=== PATIENT | female | born 1960 | race Caucasian/White ===

== ENCOUNTER → 2019-07-06 10:59 | Outpatient (POV) | payer BC, SELFPAY | PROVIDERS: PCP Dermatology; Visit Provider Dermatology | DX: Z00.00 Encounter for general adult medical examination without abnormal findings (principal) ==

== ENCOUNTER → 2019-10-14 11:10 | Outpatient (CLI) | payer BC, SELFPAY ==
[2019-10-14 13:34] LABS: Coronavirus 19 IgG Antibody Negative (Negative); Coronavirus 19 IgM Antibody Negative (Negative)
== END ==
PROVIDERS: Visit Provider Internal Medicine Gastroenterology
DX: Z01.818 Encounter for other preprocedural examination (principal)
CPT/HCPCS: 36415; 86328

== ENCOUNTER 2019-10-15 08:53 | Day surgery (SDC) | payer BC, SELFPAY ==
[2019-10-11 14:05] VITALS: BMI 32.3
[2019-10-15] VITALS (7 sets, daily range): BP systolic 105–142; BP diastolic 64–91; PULSE 59–83; RESP 16–18; TEMP 36.2–36.6; O2SAT 97–99
--- NOTE | 2019-10-15 09:44 | HMH.ANESCL ---
[facility] Anesthesia Checklist - Patient Identification Patient Identification: Arm Band, Verbal (Name & ) - Structural Data Admitted From: Home Planned Operative Procedure/s: Colonoscopy Consent for Planned Operative Procedure(s) Verified: Yes Verified Documents: Surgical Consent, History and Physical - NPO Status Verified Time NPO: 00:00 - Chart Verification Results Verified: None - Additional verifications Anesthesia Reactions: No - Airway Assessment C-Spine Mobility Assessed: Yes TMJ Mobility Assessed: Yes Dentition: Dentures-good fit - Neurological Assessment Level of Consciousness: Awake, Alert, Appropriate, Follows Commands Hx Seizures: No Numbness or tingling in extremities: No - Anesthesia Plan Anesthesia Risk discussed: Yes Anesthesia Plan: Verified ASA Class: II Anesthesia Type: MAC [facility] History I have reviewed the patient's past medical history: Yes Medical History: Reports:: Anxiety Denies:: Cancer, Diabetes Mellitus Type 1, Diabetes Mellitus Type 2, Internal Pacemaker, MRSA, Seizures *Have you ever received a pneumonia vaccine?: No *Have you received a flu vaccine this season?: Yes Other Medical History: Reports: Hypothyroidism Anesthesia experience/problems:: none Other Surgeries: Yes: Hysterectomy-Partial. No: Pacemaker Amputation: No Fractures: Yes Comment: abdominoplasty - *Social History Educational Level: Attended College Smoking Status: Never smoker Alcohol Intake: current Alcohol Intake Frequency:: holidays/special occasions only Substance Use Type: denies use *Occupational Status:: employed Housing: house Household Members: spouse *Travel in the last 8 weeks: None Family Hx:: No significant family history
--- NOTE | 2019-10-15 10:18 | HMH.PROC ---
[facility] Procedure Note Procedure Note:: Colonoscopy Procedure Report: Colonoscopy with cold snare polypectomy Endoscopist: Musa Kate II, MD Referring physician: Kalie Estevez DO Date of Procedure: October 15, 2019 Equipment: Olympus 180 variable stiffness pediatric colonoscope Sedation: MAC sedation Indication: Mrs. Roque is a 59-year-old female who is here for follow-up screening/surveillance colonoscopy. Her last colonoscopy was 6 to 8 years ago with ne. She reports no abdominal pain, weight loss, change in her bowel habits or rectal bleeding. She reports no family history of colon cancer. She did have an EGD with me in June 2017 with dilation of a Schatzki's ring. At that time, she also had some cricopharyngeal/esophageal spasm. Procedure: Prior to the procedure, a history and physical exam was performed, and patient's medications and allergies were reviewed. The risks, benefits and alternatives of the sedation and procedure were discussed with the patient. All questions were answered and informed consent was obtained. The patient was brought to the procedure room. Patient identification and proposed procedure were verified by the physician and the nurse. The patient was placed in a left lateral decubitus position and the scope was passed under direct vision. Throughout the procedure, the patient's blood pressure, pulse, and oxygen saturations were monitored continuously. The colonoscopy was accomplished without difficulty. The patient tolerated the procedure well. Findings: On digital rectal examination there was normal rectal tone. There were no external hemorrhoids. The colonoscope was introduced through the anal canal to the rectum and advanced to the cecum. The ileocecal valve and appendiceal orifice were identified. The scope was advanced a short distance into the ileum which appeared grossly normal. The scope was then withdrawn into the colon. There was a diminutive polyp in the cecum that was 3 to 4 mm and removed via cold snare polypectomy. The remaining ascending and transverse colon and mucosa were grossly normal. There were scattered diverticuli throughout the colon but more predominantly in the descending and sigmoid colon (LEFT colon). The rectum itself was normal. Upon retroflexion within the rectum there were grade 1-2 internal hemorrhoids. The preparation was excellent throughout with [place] Preparation Score of 9. The cecal time was 12 minutes. Impression: 1. Diminutive cecal polyp 2. Pandiverticulosis 3. Grade 1-2 internal hemorrhoids Plan: I will follow up the polyp pathology and recommend repeat colonoscopy again in 7-10 years based upon the polyp histology. I would encourage fiber supplementation on a long-term daily maintenance basis.
== END 2019-10-15 11:28 | disposition home or self-care (01) ==
LOC: OUTP 08:56
PROVIDERS: PCP Family Medicine; Visit Provider Internal Medicine Gastroenterology
PROC: 0DJD8ZZ Inspection of Lower Intestinal Tract, Via Natural or Artificial Opening Endoscopic (ICD-10-PCS; CPT 45378; principal; 2019-10-15 10:30)
DX: Z12.11 Encounter for screening for malignant neoplasm of colon (principal); Z87.19 Personal history of other diseases of the digestive system; K63.5 Polyp of colon; K57.30 Diverticulosis of large intestine without perforation or abscess without bleeding; K64.0 First degree hemorrhoids; F41.9 Anxiety disorder, unspecified; E03.9 Hypothyroidism, unspecified; Z79.82 Long term (current) use of aspirin; Z79.899 Other long term (current) drug therapy
CPT/HCPCS: 45385

== ENCOUNTER → 2020-02-23 09:09 | Outpatient (CLI) | payer BC, SELFPAY ==
[2020-02-23 19:43] LABS: Covid-19 Nasal PCR Sendout Lex NOT DETECTED
== END ==
PROVIDERS: PCP Family Medicine; Visit Provider Family Medicine
DX: Z03.818 Encounter for observation for suspected exposure to other biological agents ruled out (principal)
CPT/HCPCS: U0004

== ENCOUNTER → 2020-05-01 10:53 | Outpatient (CLI) | payer BC, SELFPAY | PROVIDERS: PCP Family Medicine; Visit Provider Family Medicine | DX: Z11.52 Encounter for screening for COVID-19 (principal) | CPT/HCPCS: U0003 ==

== ENCOUNTER → 2021-01-26 17:01 | Outpatient (CLI) | payer BC, SELFPAY | PROVIDERS: PCP Family Medicine; Visit Provider Nurse Practitioner | DX: Z20.822 Contact with and (suspected) exposure to COVID-19 (principal); U07.1 COVID-19 | CPT/HCPCS: C9803; U0003; U0005 ==

== ENCOUNTER 2021-05-18 09:30 | Emergency (ER) | payer BC, SELFPAY ==
[2021-05-18 09:32] VITALS: BP 114/84; PULSE 84; RESP 16; TEMP 36.7; O2SAT 98; BMI 32.3
[2021-05-18 09:40] VITALS: BP 114/84; PULSE 87; RESP 18; O2SAT 97
--- NOTE | 2021-05-18 09:50 | HMH.EDGENADL ---
ED Disposition Clinical Impression: Diverticulosis of colon, Inflammatory bowel diseases (IBD) Disposition: Home, Self-Care Condition on Discharge: Good Instructions: DI for Diverticulosis, Inflammatory Bowel Disease Additional Instructions: We will schedule you for follow-up with [facility]. If you do not receive a call from them or a letter in the mail, below is their phone number and address and you can reach out to them regarding an appointment. [id number], Medicine Specialties, [facility], [address], [place] [id number] Prescriptions: Promethazine HCl [Phenergan 12.5mg tablet] 12.5 mg PO Q8H PRN #15 tab PRN Reason: Nausea And Vomiting Transmission Status: Pending to [facility] #[id number] Ondansetron [Zofran 4mg ODT] 4 mg PO TIDP PRN #12 tab PRN Reason: Nausea Transmission Status: Pending to [facility] #[id number] Referrals: Kalie Estevez [Primary Care Provider] - Time of Disposition: 12:06 - Critical Care Critical Care Time: No Attestation: On , the high probability of a clinically significant, sudden or life threatening deterioration of the following system(s) required my full and direct attention, intervention and personal management. The time I documented below is in addition to time spent performing reported procedures but includes the following listed in this critical care notation. Medical Decision Making - Medical Records Medical records reviewed: Yes: I reviewed the patient's medical records. - Konstantin Inquiry Pt receiving controlled substance: No Vital Signs: 05/18/21 09:32 05/18/21 09:40 05/18/21 10:00 Temperature 98.0 F Temperature Source Oral Pulse Rate 87 77 Pulse Rate [Right Radial] 84 Respiratory Rate 16 18 18 Blood Pressure 114/84 114/68 Blood Pressure [Right Arm] 114/84 Blood Pressure Mean 95 96 Blood Pressure Mean [Right Arm] 94 Blood Pressure Source [Right Arm] Automatic Cuff Blood Pressure Position [Right Arm] Sitting 02 Sat by Pulse Oximetry 98 97 95 Oxygen Delivery Method Room Air Room Air Room Air 05/18/21 10:30 Temperature Temperature Source Pulse Rate 82 Pulse Rate [Right Radial] Respiratory Rate 18 Blood Pressure 107/66 L Blood Pressure [Right Arm] Blood Pressure Mean 79 Blood Pressure Mean [Right Arm] Blood Pressure Source [Right Arm] Blood Pressure Position [Right Arm] 02 Sat by Pulse Oximetry 95 Oxygen Delivery Method Room Air - Lab Data Lab results reviewed: Yes: I reviewed the patient's lab results. Lab Results 05/18/21 09:48: WBC 13.9 H, RBC 5.08, Hgb 15.5, Hct 48.1 H, MCV 94.7, MCH 30.5, MCHC 32.2, RDW 13.2, Plt Count 349, MPV 8.3, Neut % (Auto) 75.5, Lymph % (Auto) 17.7, Mccreary % (Auto) 3.3, Eos % (Auto) 2.4, Baso % (Auto) 1.1, Neut # (Auto) 10.5 H, Lymph # (Auto) 2.5, Mccreary # (Auto) 0.5, Eos # (Auto) 0.3, Baso # (Auto) 0.2, ESR 9 05/18/21 09:48: Sodium 136, Potassium 3.7, Chloride 102, Carbon Dioxide 25, Anion Gap 12.7, BUN 9, Creatinine 0.70, Estimated Creat Clear 84, Estimated GFR 85, Est GFR ( Amer) 103, Glucose 134 H, Calcium 9.3, C-Reactive Protein 43.1 H Result diagrams: 05/18/21 09:48 05/18/21 09:48 Orders (Tests/Meds): ED MEDICATIONS Discontinued Medications Generic Name Dose Route Start Last Admin Trade Name Freq PRN Reason Stop Dose Admin Sodium Chloride 1,000 mls @ 999 mls/hr 05/18/21 10:00 05/18/21 10:13 Sod Chlor 0.9% 1000ml Bag IV 05/18/21 11:00 999 mls/hr .Q1H1M NABIL Administration Influenza Virus Vaccine Quadrival 60 mcg 05/18/21 09:48 05/18/21 11:06 Flu Vacc [id number](Age 6 Mo+)/Pf 60 Mcg/0.5 Ml Syringe IM 05/18/21 09:49 60 mcg .ONCE ONE Administration Iopamidol 75 ml 05/18/21 11:00 05/18/21 11:00 Iopamidol-370 (76%);100ml Bottle IV 05/18/21 11:01 75 ml ONCE ONE Administration Ondansetron HCl 4 mg 05/18/21 09:48 05/18/21 10:13 Ondansetron 4mg/2ml Vial IV 05/18/21 09:49 4 mg ON
[2021-05-18 10:00] VITALS: BP 114/68; PULSE 77; RESP 18; O2SAT 95
[2021-05-18 10:14] LABS: Basophils # 0.2 K/mm3 (0-0.2); Basophils % 1.1 % (0.1-2.0); Eosinophils # 0.3 K/mm3 (0.0-0.4); Eosinophils % 2.4 % (0.1-12.0); Hematocrit 48.1 % (37.0-47.0); Hemoglobin 15.5 g/dL (12.2-16.2); Lymphocytes # 2.5 K/mm3 (0.7-4.5); Lymphocytes % 17.7 % (10-50); Mean Corpuscular HGB Conc 32.2 g/dL (31.8-35.4); Mean Corpuscular Hemoglobin 30.5 pg (27.0-31.2); Mean Corpuscular Volume 94.7 fl (81-99); Mean Platelet Volume 8.3 fl (7.4-10.4); Monocytes # 0.5 K/mm3 (0.1-1.0); Monocytes % 3.3 % (1.7-9.3); Neutrophils # 10.5 K/mm3 (1.8-7.8); Neutrophils % 75.5 % (37.0-80.0); Platelet Count 349 K/mm3 (142-424); Red Blood Count 5.08 M/mm3 (4.20-5.40); Red Cell Distribution Width 13.2 % (11.5-17.5); White Blood Count 13.9 K/mm3 (4.8-10.8)
[2021-05-18 10:19] LABS: Anion Gap 12.7 mEq/L (5-15); Blood Urea Nitrogen 9 mg/dl (7-17); Calcium 9.3 mg/dl (8.4-10.2); Carbon Dioxide 25 mmol/L (22.0-30.0); Chloride 102 mmol/L (98-107); Creatinine Clearance Estimated 84 mL/min (50-200); Estimated Glomerular Filt Rate 85 ml/min (>60); GFR (African American) 103 ML/MIN (>60); Glucose 134 mg/dl (74-100); Potassium 3.7 mmoL/L (3.5-5.1); Sodium 136 mmol/L (136-145)
[2021-05-18 10:24] LABS: C-Reactive Protein 43.1 mg/L (0-4)
[2021-05-18 10:30] VITALS: BP 107/66; PULSE 82; RESP 18; O2SAT 95
[2021-05-18 10:47] LABS: Erythrocyte Sedimentation Rate 9 mm/hr (0-30)
--- NOTE | 2021-05-18 10:48 | CT_ITS ---
FINAL REPORT CLINICAL HISTORY: eval for crohn s/uc/diverticulitis/abscess FINDINGS: Technique: The patient was injected with intravenous contrast. Axial images through the abdomen and pelvis were performed. This study was performed with techniques to keep radiation doses as low as reasonably achievable (ALARA). Individualized dose reduction techniques using automated exposure control or adjustment of mA and/or kV according to the patient's size were employed. Abdomen: The lung bases are clear. There is mild fatty infiltration of the liver. The gallbladder is distended without evidence of stones or biliary ductal dilatation. The spleen is unremarkable. The adrenals are normal. The pancreas is unremarkable. The kidneys enhance appropriately. The aorta is normal in caliber. There is no free fluid or adenopathy. Pelvis: The appendix is not unremarkable. There is descending and sigmoid diverticulosis without evidence of diverticulitis. There is no evidence of bowel obstruction. The patient is status post hysterectomy. No localized inflammatory process is identified. The urinary bladder is unremarkable. There is no free fluid or adenopathy. IMPRESSION: Diverticulosis without evidence of diverticulitis. No acute localized inflammatory process. Reviewed, Interpreted and Dictated by Vitor Luna III, MD Transcribed by Freda Campuzano Authenticated by Vitor Luna III, MD on 05/18/2021 11:48:[address] [facility]
[2021-05-18 12:50] VITALS: BP 131/89; PULSE 71; RESP 18; TEMP 36.7; O2SAT 95
== END 2021-05-18 12:50 | disposition home or self-care (01) ==
PROVIDERS: Emergency Provider Emergency Medicine; PCP Family Medicine
DX: K52.9 Noninfective gastroenteritis and colitis, unspecified (principal); K57.30 Diverticulosis of large intestine without perforation or abscess without bleeding; E03.9 Hypothyroidism, unspecified
CPT/HCPCS: 74177; 80048; 85025; 85651; 86140; 96365; 96375; 99283; J2405; Q9967

== ENCOUNTER 2021-08-05 09:03 | Emergency (ER) | payer BC, SELFPAY ==
[2021-08-05 09:25] VITALS: BP 148/89; PULSE 84; RESP 16; TEMP 36.6; O2SAT 99; BMI 32.3
--- NOTE | 2021-08-05 09:54 | HMH.EDUTC ---
[facility] [place] Impression: UTI (urinary tract infection) Qualifiers: Urinary tract infection type: site unspecified Hematuria presence: with hematuria Qualified Code(s): N39.0 - Urinary tract infection, site not specified Disposition: Home, Self-Care Condition on Discharge: Good Instructions: Urinary Tract Infection, Urine Culture, DI for Urinary Tract Infection (UTI), Phenazopyridine Additional Instructions: Drink plenty of fluids. Take tylenol or ibuprofen for pain or fever. Take the medications as directed. Follow up with your regular doctor. GO TO THE ER FOR ANY WORSENING SYMPTOMS The pyridium will make your urine turn orange, this is an expected side effect. It will stain your clothes if it comes into contact with them. We will culture the urine. That will tell what bacteria is causing your infection and which antibiotics will treat it best. Sometimes the first antibiotic we prescribe turns out to not work against different bacteria. So, make sure you follow up within 3 days if you are not getting better. Prescriptions: Ondansetron [Zofran 4mg ODT] 4 mg PO Q8HP PRN #12 tab PRN Reason: Nausea Transmission Status: Received by [facility] #[id number] Nitrofurantoin Monohyd/M-Cryst [Macrobid 100 mg Capsule] 100 mg PO BID 5 Days #10 cap Transmission Status: Received by [facility] #[id number] Phenazopyridine HCl [Pyridium 200mg Tablet] 200 pow PO TID #6 tab Transmission Status: Received by [facility] #[id number] Referrals: Kalie Estevez [Primary Care Provider] - Time of Disposition: 10:10 Medical Decision Making - Medical Records Medical records reviewed: No: I reviewed the patient's medical records. - Konstantin Inquiry Pt receiving controlled substance: No Vital Signs: 08/05/21 09:25 08/05/21 10:14 Temperature 97.9 F 97.9 F Temperature Source Oral Pulse Rate 84 Pulse Rate [Left] 84 Respiratory Rate 16 16 Blood Pressure 148/89 H Blood Pressure [Right Arm] 148/89 H Blood Pressure Mean [Right Arm] 108 02 Sat by Pulse Oximetry 99 - Lab Data Lab results reviewed: Yes: I reviewed the patient's lab results. Lab Results 08/05/21 10:12: Urine Color Straw, Urine Appearance Turbid, Urine pH 5.0, Ur Specific [place] 1.025, Urine Protein Negative, Urine Glucose (UA) Negative, Urine Ketones Negative, Urine Blood 2+, Urine Nitrate Negative, Urine Bilirubin Negative, Urine Urobilinogen 0.2, Ur Leukocyte Esterase Negative [facility] [place] - General Stated complaint: possible uti Time Seen by Provider: 08/05/21 09:54 Mode of Arrival: Ambulatory Source of Information: Patient Limitations: No Limitations Description of Symptoms (Recalled from Triage Doc. by RN): pt c/o pain with urination and lower back pain. HEENT Symptoms (Recalled from RN notes): No Resp Symptoms (Recalled from RN notes): No Skin Symptoms (Recalled from RN notes): No MS Symptoms (Recalled from RN notes): No Functional Status (Recalled from RN notes): wnl - History of Present Illness Provider Complaint: She c/o low back pain and burning with urination for the past 2 days. - Related Data Home Medications Medication Instructions Recorded Confirmed Aspirin [Aspir 81] 81 mg PO DAILY 10/11/19 05/18/21 Levothyroxine Sodium 37.5 mcg PO DAILY 10/11/19 05/18/21 [Levothyroxine 75mcg (0.075mg) Tab] Venlafaxine HCl [Venlafaxine HCl 1 tab PO DAILY 10/11/19 05/18/21 ER] Baclofen [Lioresal 10mg tablet] 10 mg PO DIRECTED 05/18/21 05/18/21 Ciprofloxacin HCl 500 mg PO BID 05/18/21 05/18/21 Dicyclomine HCl [Bentyl 10mg 10 mg PO QID 05/18/21 05/18/21 capsule] hydrOXYzine HCL [Hydroxyzine HCl] 10 mg PO Q6H 05/18/21 05/18/21 metroNIDAZOLE [metroNIDAZOLE 500mg 500 mg PO TID 05/18/21 05/18/21 Tablet] Previous Rx's Medication Instructions Recorded Ondansetron [Zofran 4mg ODT] 4 mg PO TIDP PRN #12 tab 05/18/21 Promethazine HCl [Phenergan 12.5mg 12.5 mg PO Q8H P
[2021-08-05 10:13] LABS: Apearance,Urine Turbid (Clear); Color,Urine Straw (Yellow)
[2021-08-05 10:14] VITALS: BP 148/89; PULSE 84; RESP 16; TEMP 36.6
[2021-08-05 10:14] LABS: Bilirubin,Urine Negative (Negative); Blood, Urine 2+ (Negative); Glucose,Urine (UA) Negative (Negative); Ketones,Urine Negative (Negative); Protein,Urine Negative (Negative); Specific Gravity, Urine 1.025 (1.005-1.030); UTC Leukocyte Esterase,Urine Negative (Negative); UTC Nitrate,Urine Negative (Negative); Urobilinogen,Urine 0.2 EU/dl (0.2)
== END 2021-08-05 10:15 | disposition home or self-care (01) ==
PROVIDERS: Emergency Provider Nurse Practitioner Family; PCP Family Medicine
DX: N39.0 Urinary tract infection, site not specified (principal); A49.8 Other bacterial infections of unspecified site; M54.50 Low back pain, unspecified; F41.9 Anxiety disorder, unspecified; Z79.82 Long term (current) use of aspirin; Z79.899 Other long term (current) drug therapy
CPT/HCPCS: 81003; 87086; 87088; 87186; 99213; G0463

== ENCOUNTER 2021-12-08 18:07 | Emergency (ER) | payer BC, SELFPAY ==
--- NOTE | 2021-12-08 18:21 | XR_ITS ---
PROCEDURE INFORMATION: Exam: XR Chest Exam date and time: 12/08/2021 6:22 PM Age: 61 years old Clinical indication: Cough TECHNIQUE: Imaging protocol: Radiologic exam of the chest. Views: 2 views. COMPARISON: None FINDINGS: Lungs: Unremarkable. No consolidation. Pleural spaces: Unremarkable. No pleural effusion. No pneumothorax. Heart/Mediastinum: Unremarkable. No cardiomegaly. Bones/joints: Unremarkable. IMPRESSION: No acute findings.
[2021-12-08 18:35] VITALS: BP 147/82; PULSE 86; RESP 16; TEMP 36.5; O2SAT 96; BMI 31.6
--- NOTE | 2021-12-08 18:48 | HMH.EDUTC ---
[facility] [place] Clinical Impression: Acute bronchitis Sinusitis Qualifiers: Sinusitis location: unspecified location Chronicity: acute Recurrence: non-recurrent Qualified Code(s): J01.90 - Acute sinusitis, unspecified Disposition: Home, Self-Care Condition on Discharge: Good Instructions: DI for Sinusitis, DI for Acute Bronchitis Additional Instructions: Drink plenty of fluids. Take tylenol or ibuprofen for pain or fever. Take the medications as directed. Follow up with your regular doctor. GO TO THE ER FOR ANY WORSENING SYMPTOMS Quarantine until you know the results of your covid-19 test. Notify your school or workplace of your results and follow their instructions regarding return to work/school. Don't start the oral steroids until tomorrow, since you had the shot here today. Prescriptions: Benzonatate [Benzonatate 100mg cap] 100 mg PO TIDP PRN #30 cap PRN Reason: Cough Transmission Status: Received by [facility] #[id number] methylPREDNISolone [Medrol] 4 mg PO DIRECTED 6 Days #21 packet Transmission Status: Received by [facility] #[id number] Azithromycin [Z-Ferdinand 250mg Tab*] 250 mg PO UD DOSE PK #6 tab Transmission Status: Received by [facility] #[id number] Referrals: Kalie Estevez [Primary Care Provider] - Time of Disposition: 19:08 Medical Decision Making - Medical Records Medical records reviewed: No: I reviewed the patient's medical records. - Konstantin Inquiry Pt receiving controlled substance: No Vital Signs: 12/08/21 18:35 12/08/21 19:12 Temperature 97.7 F 97.7 F Temperature Source Oral Pulse Rate 86 Pulse Rate [Left] 86 Respiratory Rate 16 16 Blood Pressure 147/82 H Blood Pressure [Right Arm] 147/82 H Blood Pressure Mean [Right Arm] 103 02 Sat by Pulse Oximetry 96 Orders (Tests/Meds): ED MEDICATIONS Discontinued Medications Generic Name Dose Route Start Last Admin Trade Name Freq PRN Reason Stop Dose Admin Ceftriaxone Sodium 1 gm 12/08/21 18:57 12/08/21 19:12 Ceftriaxone 1gm Vial IM 12/08/21 18:58 1 gm ONCE ONE Administration Lidocaine HCl 0 ml 12/08/21 18:57 12/08/21 19:12 Lidocaine 1% 5ml Pf Vial IM 12/08/21 18:58 2 ml ONCE ONE Administration Methylprednisolone Sodium Succinate 125 mg 12/08/21 18:57 12/08/21 19:12 Methylprednisolone Sod Succ 125mg Vial IM 12/08/21 18:58 125 mg ONCE ONE Administration [facility] [place] - General Stated complaint: Cough,Head&Chest congestion, Time Seen by Provider: 12/08/21 18:48 Mode of Arrival: Ambulatory Source of Information: Patient Limitations: No Limitations Description of Symptoms (Recalled from Triage Doc. by RN): patient comes in with complaints of sinus congestion, chest congestion.patient was seen by her pcp earlier this month and her medicine ran out and she noticed that her symptoms come back. HEENT Symptoms (Recalled from RN notes): Yes Resp Symptoms (Recalled from RN notes): Yes Skin Symptoms (Recalled from RN notes): No MS Symptoms (Recalled from RN notes): No Functional Status (Recalled from RN notes): n/a - History of Present Illness Provider Complaint: She states that for the past 4 days she has had sinus congestion, sinus drainage, chest congestion, and a productive cough. She denies any known exposure to covid-19 and she states that she has a sinus infection now. - Related Data Home Medications Medication Instructions Recorded Confirmed Aspirin [Aspir 81] 81 mg PO DAILY 10/11/19 05/18/21 Levothyroxine Sodium 37.5 mcg PO DAILY 10/11/19 05/18/21 [Levothyroxine 75mcg (0.075mg) Tab] Venlafaxine HCl [Venlafaxine HCl 1 tab PO DAILY 10/11/19 05/18/21 ER] Baclofen [Lioresal 10mg tablet] 10 mg PO DIRECTED 05/18/21 05/18/21 Ciprofloxacin HCl 500 mg PO BID 05/18/21 05/18/21 Dicyclomine HCl [Bentyl 10mg 10 mg PO QID 05/18/21 05/18/21 capsule] hydrOXYzine HCL [Hydroxyzine HCl] 10 mg PO Q6H 05/18/21 05/18/21 metroNIDAZOL
[2021-12-08 19:12] VITALS: BP 147/82; PULSE 86; RESP 16; TEMP 36.5
== END 2021-12-08 19:21 | disposition home or self-care (01) ==
PROVIDERS: Emergency Provider Nurse Practitioner Family; PCP Family Medicine
DX: J20.9 Acute bronchitis, unspecified (principal); J01.90 Acute sinusitis, unspecified
CPT/HCPCS: 71046; 96372; 99212; G0463; J0696

== ENCOUNTER 2022-10-31 08:29 | Emergency (ER) | payer BC, SELFPAY ==
[2022-10-31 08:30] VITALS: BP 139/85; PULSE 90; RESP 16; TEMP 36.5; O2SAT 96; BMI 29.7
--- NOTE | 2022-10-31 08:50 | CT_ITS ---
FINAL REPORT CLINICAL HISTORY: hit by cattle gate FINDINGS: Axial images of the head were obtained without contrast. Coronal reformatted images were also obtained.This study was performed with techniques to keep radiation doses as low as reasonably achievable (ALARA). Individualized dose reduction techniques using automated exposure control or adjustment of mA and/or kV according to the patient's size were employed. There is no evidence of intracranial hemorrhage or mass. The ventricular size is within normal limits. There is no evidence of shift of the midline structures. No abnormal extra axial fluid collection is identified. No skull abnormality is seen on the bone window images. IMPRESSION: No acute intracranial abnormality. Reviewed, Interpreted and Dictated by Vitor Luna III, MD Transcribed by Katiuska Marcus Authenticated and [facility]
--- NOTE | 2022-10-31 08:50 | XR_ITS ---
FINAL REPORT CLINICAL HISTORY: hit by cattle gate FINDINGS: Two views of the chest were obtained. The heart size and pulmonary vascularity are within normal limits. The mediastinum is normal. No acute pulmonary abnormality is identified. There is no pneumothorax. The bony thorax is intact. IMPRESSION: No active cardiopulmonary disease. Reviewed, Interpreted and Dictated by Vitor Luna III, MD Transcribed by Jenny Palacios Authenticated and [facility]
--- NOTE | 2022-10-31 08:50 | CT_ITS ---
FINAL REPORT CLINICAL HISTORY: hit by cattle gate FINDINGS: Axial CT images of the cervical spine were obtained without contrast. Sagittal and coronal reformatted images were also obtained. This study was performed with techniques to keep radiation doses as low as reasonably achievable (ALARA). Individualized dose reduction techniques using automated exposure control or adjustment of mA and/or kV according to the patient's size were employed. There is no evidence of fracture or dislocation. The bony alignment is normal. There are moderate degenerative changes at C5-6 and C6-7 with disc osteophyte complexes. There is bilateral neuroforaminal narrowing and mild central canal stenosis at C5-6 and C6-7. No paraspinous soft tissue abnormality is seen. Limited images of the upper thorax are unremarkable. IMPRESSION: No fracture or acute bony abnormality identified. Degenerative changes at C5-6 and C6-7 with bilateral neuroforaminal narrowing and mild central canal stenosis. Reviewed, Interpreted and Dictated by Vitor Luna III, MD Transcribed by Katiuska Marcus Authenticated and [facility]
--- NOTE | 2022-10-31 09:03 | PC.NURSE ---
Pt. to XR
--- NOTE | 2022-10-31 09:15 | PC.NURSE ---
Dr. Melendez at [facility]
--- NOTE | 2022-10-31 09:19 | HMH.EDGENADL ---
Discharge Plan Disposition Patient Disposition: Home, Self-Care Prescriptions Prescriptions: New ondansetron 4 mg tablet,disintegrating 4 mg PO Q6H PRN (Reason: nausea and vomiting) 5 Days Qty: 20 0RF No Action aspirin 81 MG tablet,delayed release (DR/EC) 81 mg PO DAILY levothyroxine 75 MCG tablet 37.5 mcg PO DAILY venlafaxine 37.5 MG capsule,extended release 24hr 1 tab PO DAILY Patient Comments: take 1 capsule by mouth once daily metronidazole 500 MG tablet 500 mg PO TID ciprofloxacin HCl 500 MG tablet 500 mg PO BID baclofen 10 MG tablet 10 mg PO DIRECTED hydroxyzine HCl 10 MG tablet 10 mg PO Q6H Patient Comments: TAKE 0.5 TO 1 TABLET BY MOUTH 1 TO 3 TIMES DAILY NEEDED FOR PANIC dicyclomine 10 MG capsule 10 mg PO QID promethazine 12.5 MG tablet 12.5 mg PO Q8H PRN (Reason: Nausea And Vomiting) Qty: 15 0RF ondansetron 4 MG tablet,disintegrating 4 mg PO TIDP PRN (Reason: Nausea) Qty: 12 0RF phenazopyridine 200 MG tablet 200 pow PO TID Qty: 6 0RF nitrofurantoin monohyd/m-cryst 100 MG capsule 100 mg PO BID 5 Days Qty: 10 0RF ondansetron 4 MG tablet,disintegrating 4 mg PO Q8HP PRN (Reason: Nausea) Qty: 12 0RF azithromycin 250 MG tablet 250 mg PO UD DOSE PK Qty: 6 0RF Rx Instructions: Take two (2) tablets today, then one (1) tablet days #2 thru #5 benzonatate 100 MG capsule 100 mg PO TIDP PRN (Reason: Cough) Qty: 30 0RF methylprednisolone 4 MG tablets,dose pack 4 mg PO DIRECTED 6 Days Qty: 21 0RF Referrals Follow up/Referrals: Kalie Estevez [Primary Care Provider] - See instructions Clinical Impressions Clinical Impression: Closed head injury, Concussion Discharge ED Provider: Shabana Melendez General Adult HPI General Chief complaint: Head Injury Stated complaint: AO 7/6 Bruising on head Time Seen by Provider: 10/31/22 09:11 Mode of Arrival: Ambulatory Source of Information: Patient Limitations: No Limitations Description of Symptoms (Recalled from ER Triage Doc. by RN): pt to the ED with pain and redness to her left forehead after a cow kicked the gate she was behind causing the gate to swing back and hit her in the head. pt denies any neck pain or other complaints at this time. pt is negative for blood thinners. History of Present Illness HPI narrative: Patient is a 62-year-old female presenting today with a head injury. She states that she was helping load cattle with her when a cow kicked the gate that subsequently struck her in the head and knocked her backwards. She denies any injuries to her neck chest abdomen or pelvis or pain elsewhere. She did not lose consciousness she is not on any anticoagulation but does take a daily aspirin. She has some pain at the left frontal aspect of her forehead. She states other than feeling a bit disoriented she has no pain currently. Related Data Home Medications Medication Instructions Recorded Confirmed aspirin 81 mg tablet,delayed 81 mg PO DAILY heart health 10/11/19 05/18/21 release levothyroxine 75 mcg tablet 37.5 mcg PO DAILY hormone 10/11/19 05/18/21 venlafaxine 37.5 mg 1 tab PO DAILY Anxiety 10/11/19 05/18/21 capsule,extended release 24 hr baclofen 10 mg tablet 10 mg PO DIRECTED . 05/18/21 05/18/21 ciprofloxacin HCl 500 mg tablet 500 mg PO BID abd 05/18/21 05/18/21 dicyclomine 10 mg capsule 10 mg PO QID abd pain 05/18/21 05/18/21 hydroxyzine HCl 10 mg tablet 10 mg PO Q6H . 05/18/21 05/18/21 metronidazole 500 mg tablet 500 mg PO TID abd 05/18/21 05/18/21 Previous Rx's Medication Instructions Recorded ondansetron 4 mg disintegrating 4 mg PO TIDP PRN Nausea #12 tabs 05/18/21 tablet promethazine 12.5 mg tablet 12.5 mg PO Q8H PRN Nausea And 05/18/21 Vomiting #15 tabs nitrofurantoin 100 mg PO BID 5 days #10 caps 08/05/21 monohydrate/macrocrystals 100 mg capsule ondansetron 4 mg disintegrating 4 mg PO
[2022-10-31 09:29] VITALS: BP 123/70; PULSE 71; RESP 16; O2SAT 98
[2022-10-31 10:01] VITALS: BP 128/70; PULSE 75; O2SAT 96
--- NOTE | 2022-10-31 10:21 | PC.NURSE ---
Contracted rad to check on status of CT results-rad staff reports sending down preliminaries on CTs
[2022-10-31 10:35] VITALS: BP 111/82; PULSE 75; RESP 16; TEMP 36.5; O2SAT 98
== END 2022-10-31 10:35 | disposition home or self-care (01) ==
PROVIDERS: Emergency Provider Student in an Organized Health Care Education/Training Program; PCP Family Medicine
DX: S06.0X0A Concussion without loss of consciousness, initial encounter (principal); W22.8XXA Striking against or struck by other objects, initial encounter; R41.0 Disorientation, unspecified; Z79.82 Long term (current) use of aspirin
CPT/HCPCS: 70450; 71046; 72125; 99285

== ENCOUNTER 2022-11-19 11:48 | Emergency (ER) | payer BC, SELFPAY ==
--- NOTE | 2022-11-19 11:53 | PC.NURSE ---
pt hooked up to monitor; warm blanket given for comfort and call light within reach. at BS
[2022-11-19 11:55] VITALS: BP 148/100; PULSE 90; RESP 20; TEMP 36.6; O2SAT 96; BMI 29.3
[2022-11-19 12:01] VITALS: BP 138/93; PULSE 84; O2SAT 95
--- NOTE | 2022-11-19 12:06 | CT_ITS ---
FINAL REPORT TECHNIQUE: Axial images through the head was performed by computed tomography. Sagittal and coronal reformatted images were obtained and reviewed. This study was performed with techniques to keep radiation doses as low as reasonably achievable (ALARA). Individualized dose reduction techniques using automated exposure control or adjustment of mA and/or kV according to the patient's size were employed. CLINICAL HISTORY: headache [id number], CONCUSSION 3 WEEKS AGO COMPARISON: 10/31/2022 FINDINGS: No abnormal density is seen. Ventricles are normal. There is no hemorrhage. No mass effect is seen. Bone windows show no evidence of fracture. IMPRESSION: No acute findings. Reviewed, Interpreted and Dictated by Shira Souza MD Transcribed by Freda Campuzano Authenticated and [facility]
--- NOTE | 2022-11-19 12:08 | CT_ITS ---
FINAL REPORT TECHNIQUE: After the administration of IV contrast, axial images through the abdomen and pelvis was performed by computed tomography. Sagittal and coronal reformatted images were obtained and reviewed. This study was performed with techniques to keep radiation doses as low as reasonably achievable (ALARA). Individualized dose reduction techniques using automated exposure control or adjustment of mA and/or kV according to the patient's size were employed. CLINICAL HISTORY: pain COMPARISON: 05/18/2021 FINDINGS: Abdomen: Lung bases are clear. The gallbladder is unremarkable. There is fatty infiltration of the liver. The gallbladder is unremarkable. The spleen, pancreas and adrenal glands are unremarkable. Kidneys show no mass or obstruction. No bowel obstruction or fluid collection is seen. There is long segment wall thickening of the left colon extending from the splenic flexure into the sigmoid colon. Pelvis: The appendix is normal. There is left colon wall thickening which extends to involve the sigmoid colon. There is moderate sigmoid diverticulosis. The patient is status post hysterectomy. There is no free fluid or adenopathy. IMPRESSION: Nonspecific left-sided colitis. No bowel obstruction, free air, or abscess. Reviewed, Interpreted and Dictated by Shira Souza MD Transcribed by Freda Campuzano Authenticated and . [facility]
[2022-11-19 12:23] LABS: Basophils % 0.6 % (0.1-2.0); Eosinophils # 0.1 K/mm3 (0.0-0.4); Eosinophils % 2.4 % (0.1-12.0); Hemoglobin 14.7 g/dL (12.2-16.2); Lymphocytes # 1.9 K/mm3 (0.7-4.5); Lymphocytes % 33.3 % (10-50); Mean Corpuscular HGB Conc 31.9 g/dL (31.8-35.4); Mean Corpuscular Hemoglobin 29.1 pg (27.0-31.2); Mean Corpuscular Volume 91.2 fl (81-99); Mean Platelet Volume 8.1 fl (7.4-10.4); Monocytes # 0.6 K/mm3 (0.1-1.0); Monocytes % 10.3 % (1.7-9.3); Neutrophils # 3.1 K/mm3 (1.8-7.8); Neutrophils % 53.3 % (37.0-80.0); Platelet Count 257 K/mm3 (142-424); Red Blood Count 5.04 M/mm3 (4.20-5.40); Red Cell Distribution Width 13.3 % (11.5-17.5); White Blood Count 5.8 K/mm3 (4.8-10.8)
--- NOTE | 2022-11-19 12:27 | HMH.EDGENADL ---
Discharge Plan Disposition Patient Disposition: Home, Self-Care Condition: Good Prescriptions Prescriptions: New naproxen 500 mg tablet 500 mg PO BID PRN (Reason: pain) Qty: 20 0RF No Action aspirin 81 MG tablet,delayed release (DR/EC) 81 mg PO DAILY levothyroxine 75 MCG tablet 37.5 mcg PO DAILY venlafaxine 37.5 MG capsule,extended release 24hr 1 tab PO DAILY Patient Comments: take 1 capsule by mouth once daily metronidazole 500 MG tablet 500 mg PO TID ciprofloxacin HCl 500 MG tablet 500 mg PO BID baclofen 10 MG tablet 10 mg PO DIRECTED hydroxyzine HCl 10 MG tablet 10 mg PO Q6H Patient Comments: TAKE 0.5 TO 1 TABLET BY MOUTH 1 TO 3 TIMES DAILY NEEDED FOR PANIC dicyclomine 10 MG capsule 10 mg PO QID promethazine 12.5 MG tablet 12.5 mg PO Q8H PRN (Reason: Nausea And Vomiting) Qty: 15 0RF ondansetron 4 MG tablet,disintegrating 4 mg PO TIDP PRN (Reason: Nausea) Qty: 12 0RF phenazopyridine 200 MG tablet 200 pow PO TID Qty: 6 0RF nitrofurantoin monohyd/m-cryst 100 MG capsule 100 mg PO BID 5 Days Qty: 10 0RF ondansetron 4 MG tablet,disintegrating 4 mg PO Q8HP PRN (Reason: Nausea) Qty: 12 0RF azithromycin 250 MG tablet 250 mg PO UD DOSE PK Qty: 6 0RF Rx Instructions: Take two (2) tablets today, then one (1) tablet days #2 thru #5 benzonatate 100 MG capsule 100 mg PO TIDP PRN (Reason: Cough) Qty: 30 0RF methylprednisolone 4 MG tablets,dose pack 4 mg PO DIRECTED 6 Days Qty: 21 0RF ondansetron 4 mg tablet,disintegrating 4 mg PO Q6H PRN (Reason: nausea and vomiting) 5 Days Qty: 20 0RF Referrals Follow up/Referrals: Colette Westbrook DO [Emergency Provider] - See instructions Kalie Estevez [Primary Care Provider] - See instructions May Novak MD [Staff Physician] - See instructions Activity Restrictions/Add. Instructions Additional Instructions/Restrictions: You were evaluated in the emergency department today. Please scrap picker your prescription at the pharmacy and take as needed for abdominal discomfort. Orally hydrate and eat a bland diet. Follow-up with your primary care provider over the next 2 days. I am providing you with information for Dr. Novak with Neurology. Please contact her office and arrange follow-up for your continued concussive symptoms. Return to the emergency department for any new or worsening symptoms. Clinical Impressions Clinical Impression: Colitis, Chronic post-concussion headache Instructions Patient Instructions: DI for Concussion, DI for Postconcussion Syndrome, DI for Headache, DI for Colitis Discharge ED Provider: Colette Westbrook General Adult HPI General Chief complaint: Headache Stated complaint: BOATENG, diarrhea Time Seen by Provider: 11/19/22 11:54 Mode of Arrival: Ambulatory Source of Information: Patient Limitations: No Limitations Description of Symptoms (Recalled from ER Triage Doc. by RN): pt to ed c/o diarrhea for 3 days and a headache for 3 weeks. pt states she was hit by a cattle gate 3 weeks ago and has had a persistant headache since. pt reports being worked up and dx with a concussion. pt reports a sensitivity to light and sound. History of Present Illness HPI narrative: This patient is a 62-year-old female who has a history of diverticulosis and diabetes presenting to the emergency department for evaluation with concern for headache and diarrhea. Patient reports that she was struck in the head by a cattle gate 3 weeks ago and has had a headache since. She was evaluated here at that time on medical record review and diagnosed with a concussion. She reports that she feels like she has brain fog and is having trouble answering questions. She has tried Aleve at home without good improvement. She also reports sensitivity to light and sound. She denies any vision changes, numbness, tingling, weakness, or other concerns. She also notes that she
[2022-11-19 12:30] VITALS: BP 128/88; PULSE 82; O2SAT 96
[2022-11-19 12:51] LABS: Microscopic, Urine URINE MICROSCOPIC (MICROSCOPIC)
[2022-11-19 12:58] LABS: Appearance,Urine CLEAR (Clear); Blood, Urine 1+ (Negative); Color,Urine YELLOW (Yellow); Glucose,Urine (UA) Negative (Negative); Ketones,Urine Negative (Negative); Leukocyte Esterase,Urine TRACE (Negative); Nitrate,Urine Negative (Negative); Protein,Urine Negative (Negative); Specific Gravity, Urine >= 1.030 (1.005-1.030); Urobilinogen,Urine 0.2 EU/dl (0.2)
[2022-11-19 13:00] VITALS: BP 125/78; PULSE 73; O2SAT 95
--- NOTE | 2022-11-19 13:01 | PC.NURSE ---
contacted lab to check on status of cmp results, lab staff reports will be approx 10 minutes until results
[2022-11-19 13:06] LABS: Chloride 104 mmol/L (98-107); Potassium 3.8 mmoL/L (3.5-5.1); Sodium 139 mmol/L (136-145)
[2022-11-19 13:08] LABS: Bilirubin,Urine Negative (Negative)
[2022-11-19 13:08] LABS: Alanine Aminotransferase 39 U/L (12-78); Aspartate Amino Transferase 40 U/L (14-36); Blood Urea Nitrogen 10 mg/dl (7-17); Creatinine Clearance Estimated 74 mL/min (50-200); Estimated Glomerular Filt Rate 84 ml/min (>60); GFR (African American) 102 ML/MIN (>60)
[2022-11-19 13:09] LABS: Albumin Level 4.2 g/dl (3.5-5.0); Albumin/Globulin Ratio 1.3 (1.1-1.8); Alkaline Phosphatase 86 U/L (38-126); Anion Gap 12.8 mEq/L (5-15); Bilirubin,Total 0.3 mg/dl (0.2-1.3); Calcium 9.2 mg/dl (8.4-10.2); Carbon Dioxide 26 mmol/L (22.0-30.0); Globulin 3.2 g/dL (1.3-3.2); Glucose 120 mg/dl (74-100); Lipase 93 U/L (23-300); Total Protein,Serum 7.4 g/dl (6.3-8.2)
[2022-11-19 13:27] LABS: Amorphous Sediment,Urine Trace /lpf; Bacteria,Urine Trace /lpf; RBC,Urine Occasional #/hpf (0-3); Squamous Epithelial Cell,Urine Occasional #/hpf (0-5)
[2022-11-19 15:03] VITALS: BP 119/74; PULSE 70; RESP 20; TEMP 36.6; O2SAT 96
== END 2022-11-19 15:05 | disposition home or self-care (01) ==
PROVIDERS: Emergency Provider Emergency Medicine; PCP Family Medicine
DX: G44.309 Post-traumatic headache, unspecified, not intractable (principal); K52.9 Noninfective gastroenteritis and colitis, unspecified; W55.29 Other contact with cow
CPT/HCPCS: 70450; 74177; 80053; 81001; 83690; 83735; 85025; 96361; 96374; 96375; 99285; Q9967

== ENCOUNTER 2023-04-12 09:42 | Emergency (ER) | payer BC, SELFPAY ==
[2023-04-12 10:30] VITALS: BP 128/84; PULSE 78; RESP 20; TEMP 36.6; O2SAT 96; BMI 29.8
--- NOTE | 2023-04-12 10:35 | EXP.UTC ---
Discharge Plan Disposition Patient Disposition: Home, Self-Care Condition: Good Prescriptions Prescriptions: New amoxicillin [amoxicillin] 500 mg tablet 500 mg PO TID 10 Days Qty: 30 0RF benzonatate [benzonatate] 100 mg capsule 100 mg PO TIDP PRN (Reason: Cough) Qty: 30 0RF methylprednisolone 4 mg Tablets,Dose Pack 4 mg PO DIRECTED Qty: 21 0RF No Action aspirin 81 MG tablet,delayed release (DR/EC) 81 mg PO DAILY levothyroxine 75 MCG tablet 37.5 mcg PO DAILY venlafaxine 37.5 MG capsule,extended release 24hr 1 tab PO DAILY Patient Comments: take 1 capsule by mouth once daily metronidazole 500 MG tablet 500 mg PO TID ciprofloxacin HCl 500 MG tablet 500 mg PO BID baclofen 10 MG tablet 10 mg PO DIRECTED hydroxyzine HCl 10 MG tablet 10 mg PO Q6H Patient Comments: TAKE 0.5 TO 1 TABLET BY MOUTH 1 TO 3 TIMES DAILY NEEDED FOR PANIC dicyclomine 10 MG capsule 10 mg PO QID promethazine 12.5 MG tablet 12.5 mg PO Q8H PRN (Reason: Nausea And Vomiting) Qty: 15 0RF ondansetron 4 MG tablet,disintegrating 4 mg PO TIDP PRN (Reason: Nausea) Qty: 12 0RF phenazopyridine 200 MG tablet 200 pow PO TID Qty: 6 0RF nitrofurantoin monohyd/m-cryst 100 MG capsule 100 mg PO BID 5 Days Qty: 10 0RF ondansetron 4 MG tablet,disintegrating 4 mg PO Q8HP PRN (Reason: Nausea) Qty: 12 0RF azithromycin 250 MG tablet 250 mg PO UD DOSE PK Qty: 6 0RF Rx Instructions: Take two (2) tablets today, then one (1) tablet days #2 thru #5 benzonatate 100 MG capsule 100 mg PO TIDP PRN (Reason: Cough) Qty: 30 0RF methylprednisolone 4 MG tablets,dose pack 4 mg PO DIRECTED 6 Days Qty: 21 0RF ondansetron 4 mg tablet,disintegrating 4 mg PO Q6H PRN (Reason: nausea and vomiting) 5 Days Qty: 20 0RF naproxen 500 mg tablet 500 mg PO BID PRN (Reason: pain) Qty: 20 0RF Referrals Follow up/Referrals: Petras,Kalie L [Primary Care Provider] - See instructions Activity Restrictions/Add. Instructions Additional Instructions/Restrictions: Drink plenty of fluids. Take tylenol or ibuprofen for pain or fever. Take the medications as directed. Follow up with your regular doctor. GO TO THE ER FOR ANY WORSENING SYMPTOMS Clinical Impressions Clinical Impression: Pharyngitis Instructions Patient Instructions: Sore Throat, DI for Pharyngitis/Tonsillopharyngitis -- Adult Discharge ED Provider: Oliver Carter [facility] General Stated complaint: sore throat Time Seen by Provider: 04/12/23 10:35 History of Present Illness Provider Complaint: She states that she has had a sore throat for the past 2 weeks. She states that for the past 2 days she has had a low grade fever and chills. She denies any significant chest congestion and cough. Related Data Home Medications Medication Instructions Recorded Confirmed aspirin 81 mg tablet,delayed 81 mg PO DAILY heart health 10/11/19 05/18/21 release levothyroxine 75 mcg tablet 37.5 mcg PO DAILY hormone 10/11/19 05/18/21 venlafaxine 37.5 mg 1 tab PO DAILY Anxiety 10/11/19 05/18/21 capsule,extended release 24 hr baclofen 10 mg tablet 10 mg PO DIRECTED . 05/18/21 05/18/21 ciprofloxacin HCl 500 mg tablet 500 mg PO BID abd 05/18/21 05/18/21 dicyclomine 10 mg capsule 10 mg PO QID abd pain 05/18/21 05/18/21 hydroxyzine HCl 10 mg tablet 10 mg PO Q6H . 05/18/21 05/18/21 metronidazole 500 mg tablet 500 mg PO TID abd 05/18/21 05/18/21 Previous Rx's Medication Instructions Recorded ondansetron 4 mg disintegrating 4 mg PO TIDP PRN Nausea #12 tabs 05/18/21 tablet promethazine 12.5 mg tablet 12.5 mg PO Q8H PRN Nausea And 05/18/21 Vomiting #15 tabs nitrofurantoin 100 mg PO BID 5 days #10 caps 08/05/21 monohydrate/macrocrystals 100 mg capsule ondansetron 4 mg disintegrating 4 mg PO Q8HP PRN Nausea #12 tabs 08/05/21 tablet phenazopyridine 200 mg tablet 200 pow
[2023-04-12 10:54] LABS: UTC Influenza A Antigen Negative (Negative); UTC Strep Screen (Rapid) Negative (Negative)
[2023-04-12 10:55] LABS: UTC Influenza B Antigen Negative (Negative)
[2023-04-12 11:19] VITALS: BP 128/84; PULSE 78; RESP 20; TEMP 36.6; O2SAT 96
== END 2023-04-12 11:21 | disposition home or self-care (01) ==
PROVIDERS: Emergency Provider Nurse Practitioner Family; PCP Family Medicine
DX: J02.9 Acute pharyngitis, unspecified (principal); R50.9 Fever, unspecified; R05.9 Cough, unspecified
CPT/HCPCS: 87635; 87804; 87880; 99212; 99214; G0463

== ENCOUNTER 2023-06-06 08:56 | Emergency (ER) | payer BC, SELFPAY ==
--- NOTE | 2023-06-06 09:04 | EXP.UTC ---
Discharge Plan Disposition Patient Disposition: Home, Self-Care Condition: Good Prescriptions Prescriptions: New oseltamivir [Tamiflu] 75 mg capsule 75 mg PO BID Qty: 10 0RF prednisone 20 mg tablet 20 mg PO BID Qty: 10 0RF promethazine-DM 6.25-15 mg/5 mL syrup 5 ml PO Q6H PRN (Reason: Cough) Qty: 180 0RF No Action aspirin 81 MG tablet,delayed release (DR/EC) 81 mg PO DAILY levothyroxine 75 MCG tablet 37.5 mcg PO DAILY venlafaxine 37.5 MG capsule,extended release 24hr 1 tab PO DAILY Patient Comments: take 1 capsule by mouth once daily metronidazole 500 MG tablet 500 mg PO TID ciprofloxacin HCl 500 MG tablet 500 mg PO BID baclofen 10 MG tablet 10 mg PO DIRECTED hydroxyzine HCl 10 MG tablet 10 mg PO Q6H Patient Comments: TAKE 0.5 TO 1 TABLET BY MOUTH 1 TO 3 TIMES DAILY NEEDED FOR PANIC dicyclomine 10 MG capsule 10 mg PO QID promethazine 12.5 MG tablet 12.5 mg PO Q8H PRN (Reason: Nausea And Vomiting) Qty: 15 0RF ondansetron 4 MG tablet,disintegrating 4 mg PO TIDP PRN (Reason: Nausea) Qty: 12 0RF phenazopyridine 200 MG tablet 200 pow PO TID Qty: 6 0RF nitrofurantoin monohyd/m-cryst 100 MG capsule 100 mg PO BID 5 Days Qty: 10 0RF ondansetron 4 MG tablet,disintegrating 4 mg PO Q8HP PRN (Reason: Nausea) Qty: 12 0RF azithromycin 250 MG tablet 250 mg PO UD DOSE PK Qty: 6 0RF Rx Instructions: Take two (2) tablets today, then one (1) tablet days #2 thru #5 benzonatate 100 MG capsule 100 mg PO TIDP PRN (Reason: Cough) Qty: 30 0RF methylprednisolone 4 MG tablets,dose pack 4 mg PO DIRECTED 6 Days Qty: 21 0RF amoxicillin [amoxicillin] 500 mg tablet 500 mg PO TID 10 Days Qty: 30 0RF benzonatate [benzonatate] 100 mg capsule 100 mg PO TIDP PRN (Reason: Cough) Qty: 30 0RF methylprednisolone 4 mg Tablets,Dose Pack 4 mg PO DIRECTED Qty: 21 0RF ondansetron 4 mg tablet,disintegrating 4 mg PO Q6H PRN (Reason: nausea and vomiting) 5 Days Qty: 20 0RF naproxen 500 mg tablet 500 mg PO BID PRN (Reason: pain) Qty: 20 0RF Referrals Follow up/Referrals: Kalie Estevez [Primary Care Provider] - See instructions Activity Restrictions/Add. Instructions Additional Instructions/Restrictions: Rest, fluids, Tylenol/Motrin Follow up if not improving Oscillinium also sometimes helps symptoms Clinical Impressions Clinical Impression: Influenza Instructions Patient Instructions: DI for Influenza -- Adult Discharge ED Provider: Divina Ghosh [facility] [place] HPI General Stated complaint: sore throat, body aches, cough Time Seen by Provider: 06/06/23 09:45 History of Present Illness Provider Complaint: Fever, headache, body aches, chills, back pain X 2 days. was ill earlier this week and presumably had the flu. Granddaughter was sick last week but negative. No vomiting or diarrhea but states that she has not felt this bad in a very long time. Onset (ago): day(s) (2) Relieving factors: none Exacerbating factors: none Associated symptoms: fever/chills, headaches and malaise Treatments prior to arrival: none Related Data Home Medications Medication Instructions Recorded Confirmed aspirin 81 mg tablet,delayed 81 mg PO DAILY heart health 10/11/19 05/18/21 release levothyroxine 75 mcg tablet 37.5 mcg PO DAILY hormone 10/11/19 05/18/21 venlafaxine 37.5 mg 1 tab PO DAILY Anxiety 10/11/19 05/18/21 capsule,extended release 24 hr baclofen 10 mg tablet 10 mg PO DIRECTED . 05/18/21 05/18/21 ciprofloxacin HCl 500 mg tablet 500 mg PO BID abd 05/18/21 05/18/21 dicyclomine 10 mg capsule 10 mg PO QID abd pain 05/18/21 05/18/21 hydroxyzine HCl 10 mg tablet 10 mg PO Q6H . 05/18/21 05/18/21 metronidazole 500 mg tablet 500 mg PO TID abd 05/18/21 05/18/21 Previous Rx's Medication Instructions Recorded ondansetron 4 mg disintegrating 4 mg PO TIDP PRN Nausea #12 tabs 01/21/22 tablet promethazine 12.5 mg tablet 12.5 mg PO Q8H PRN Nausea And 05/18/21 Vomiting #15 tabs nitrofurantoin 100 mg PO BID 5 days #10 caps 08/05/21 monohydrate/macrocrystals 100 mg capsule ondansetron 4 mg disintegrating 4 mg PO Q8HP PRN Nausea #12 tabs 08/05/21 tablet phenazopyridine 200 mg tablet 200 pow PO TID #6 tabs 08/05/21 azithromycin 250 mg tablet 250 mg PO UD DOSE PK #6 tabs 12/08/21 benzonatate 100 mg capsule 100 mg PO TIDP PRN Cough #30 caps 12/08/21 methylprednisolone 4 mg tablets in 4 mg PO DIRECTED 6 days #21 12/08/21 a dose pack packets ondansetron 4 mg disintegrating 4 mg PO Q6H PRN nausea and 10/31/22 tablet vomiting 5 days #20 tabs naproxen 500 mg tablet 500 mg PO BID PRN pain #20 tabs 11/19/22 amoxicillin 500 mg tablet 500 mg PO TID 10 days #30 tabs 04/12/23 benzonatate 100 mg capsule 100 mg PO TIDP PRN Cough #30 caps 04/12/23 methylprednisolone 4 mg tablets in 4 mg PO DIRECTED #21 tabs 04/12/23 a dose pack oseltamivir 75 mg capsule (Tamiflu) 75 mg PO BID #10 caps 06/06/23 prednisone 20 mg tablet 20 mg PO BID #10 tabs 06/06/23 promethazine-DM 6.25 mg-15 mg/5 mL 5 ml PO Q6H PRN Cough #180 mL 06/06/23 oral syrup Allergies Allergy/AdvReac Type Severity Reaction Status Date / Time No Known Allergies Allergy Verified 12/08/21 18:44 [facility] Disclaimer: The information contained in this section may have been updated after the patient was seen, as this information can be updated by other users. 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 current occupational exposures/hazards: No caffeine: Yes ROS Obtained: Yes All systems reviewed & no additional complaints except as documented Constitutional Constitutional: Reports body ache, Reports chills, Reports fever(s), Reports headache(s) and Reports malaise Eyes Eyes: Denies eye discharge ENT Ears, Nose, Mouth, and Throat: Reports as per HPI and Reports headache(s) Cardiovascular Cardiovascular: Denies chest pain Respiratory Respiratory: Denies chest congestion and Reports cough Gastrointestinal Gastrointestingal: Reports nausea; Denies abdominal pain, constipation, cramping, diarrhea or vomiting Musculoskeletal Musculoskeletal: Denies arthralgias Integumentary/Breasts Skin/Breast: Denies rash Neurologic Neurologic: Reports headache(s) and Denies paresthesias Physical Exam General General appearance: alert, in no apparent distress and other (appears ill) Head Head exam: atraumatic, normocephalic and normal inspection Eye Eye exam: Present normal appearance, PERRL and EOMI ENT ENT exam: Present normal exam, normal oropharynx, mucous membranes moist, TM's normal bilaterally and normal external ear exam Neck Neck exam: Present normal inspection, full ROM and trachea midline; Absent meningismus or lymphadenopathy Chest Chest inspection: Present normal inspection and symmetric chest wall rise; Absent tenderness Respiratory Respiratory exam: Present normal lung sounds bilaterally; Absent respiratory distress Cardiovascular Cardiovascular exam: Present regular rate and normal rhythm; Absent JVD Abdominal Exam Abdominal exam: Present soft and normal bowel sounds; Absent distention, tenderness or guarding Extremities Exam Extremities exam: Present normal inspection, full ROM and normal capillary refill; Absent calf tenderness Back Exam Back exam: Present normal inspection; Absent tenderness Neurological Exam Neurological exam: Present alert and oriented X3 Psychiatric Psychiatric exam: Present normal affect and normal mood Skin Skin exam: Present warm, dry, intact and normal color Lymphatic Lymphatic Findings: no adenopathy Medical Decision Making Konstantin Inquiry Pt receiving controlled substance: No Lab Data Lab results reviewed: Yes I reviewed the patient's lab results.
[2023-06-06 09:20] VITALS: BP 132/70; PULSE 106; RESP 18; TEMP 36.9; O2SAT 95; BMI 28.2
[2023-06-06 09:45] LABS: UTC Influenza A Antigen Negative (Negative); UTC Influenza B Antigen Negative (Negative)
[2023-06-06 10:00] VITALS: BP 132/70; PULSE 106; RESP 18; TEMP 36.9; O2SAT 96
== END 2023-06-06 10:00 | disposition home or self-care (01) ==
PROVIDERS: Emergency Provider Physician Assistant; PCP Family Medicine
DX: J10.1 Influenza due to other identified influenza virus with other respiratory manifestations (principal); R51.9 Headache, unspecified; R50.9 Fever, unspecified; R53.81 Other malaise; M79.18 Myalgia, other site
CPT/HCPCS: 87804; 99212; 99214; G0463

== ENCOUNTER 2023-06-06 18:23 | Emergency (ER) | payer BC, SELFPAY ==
[2023-06-06 18:24] VITALS: BP 121/83; PULSE 94; RESP 18; TEMP 36.9; O2SAT 92; BMI 34.2
[2023-06-06 20:10] VITALS: BMI 35.2
[2023-06-06] MEDS: ONDANSETRON 4MG ODT 4 MG SL (20:16)
[2023-06-06] MEDS: ACETAMINOPHEN 500MG TAB 1000 MG PO (20:16)
--- NOTE | 2023-06-06 20:44 | ED_ITS ---
Discharge Plan Disposition Patient Disposition: Home, Self-Care Prescriptions Prescriptions: New ondansetron 4 mg tablet,disintegrating 4 mg PO Q6H PRN (Reason: nausea and vomiting) Qty: 10 0RF No Action aspirin 81 MG tablet,delayed release (DR/EC) 81 mg PO DAILY levothyroxine 75 MCG tablet 37.5 mcg PO DAILY venlafaxine 37.5 MG capsule,extended release 24hr 1 tab PO DAILY Patient Comments: take 1 capsule by mouth once daily metronidazole 500 MG tablet 500 mg PO TID ciprofloxacin HCl 500 MG tablet 500 mg PO BID baclofen 10 MG tablet 10 mg PO DIRECTED hydroxyzine HCl 10 MG tablet 10 mg PO Q6H Patient Comments: TAKE 0.5 TO 1 TABLET BY MOUTH 1 TO 3 TIMES DAILY NEEDED FOR PANIC dicyclomine 10 MG capsule 10 mg PO QID promethazine 12.5 MG tablet 12.5 mg PO Q8H PRN (Reason: Nausea And Vomiting) Qty: 15 0RF ondansetron 4 MG tablet,disintegrating 4 mg PO TIDP PRN (Reason: Nausea) Qty: 12 0RF phenazopyridine 200 MG tablet 200 pow PO TID Qty: 6 0RF nitrofurantoin monohyd/m-cryst 100 MG capsule 100 mg PO BID 5 Days Qty: 10 0RF ondansetron 4 MG tablet,disintegrating 4 mg PO Q8HP PRN (Reason: Nausea) Qty: 12 0RF azithromycin 250 MG tablet 250 mg PO UD DOSE PK Qty: 6 0RF Rx Instructions: Take two (2) tablets today, then one (1) tablet days #2 thru #5 benzonatate 100 MG capsule 100 mg PO TIDP PRN (Reason: Cough) Qty: 30 0RF methylprednisolone 4 MG tablets,dose pack 4 mg PO DIRECTED 6 Days Qty: 21 0RF amoxicillin [amoxicillin] 500 mg tablet 500 mg PO TID 10 Days Qty: 30 0RF benzonatate [benzonatate] 100 mg capsule 100 mg PO TIDP PRN (Reason: Cough) Qty: 30 0RF methylprednisolone 4 mg Tablets,Dose Pack 4 mg PO DIRECTED Qty: 21 0RF ondansetron 4 mg tablet,disintegrating 4 mg PO Q6H PRN (Reason: nausea and vomiting) 5 Days Qty: 20 0RF naproxen 500 mg tablet 500 mg PO BID PRN (Reason: pain) Qty: 20 0RF oseltamivir [Tamiflu] 75 mg capsule 75 mg PO BID Qty: 10 0RF prednisone 20 mg tablet 20 mg PO BID Qty: 10 0RF promethazine-DM 6.25-15 mg/5 mL syrup 5 ml PO Q6H PRN (Reason: Cough) Qty: 180 0RF Referrals Follow up/Referrals: Kalie Estevez [Primary Care Provider] - See instructions Activity Restrictions/Add. Instructions Additional Instructions/Restrictions: Call your family doctor to establish care for this visit to the emergency department and schedule follow-up within 48 hours to ensure improvement. If you have any worsening of your condition or any other concerning signs or symptoms, return to the emergency department or your primary care doctor for further evaluation. Zofran every 6 hours as needed for nausea and vomiting to stimulate appetite. Take Tylenol 1000 mg every 6 hours (4 times daily) and ibuprofen 400 mg every 6 hours (4 times daily) as needed with food and water to prevent GI upset and kidney damage. Clinical Impressions Clinical Impression: Acute viral syndrome Discharge ED Provider: Sonu Holloway General Adult HPI General Chief complaint: Recheck/Abnormal Lab/Rx Stated complaint: flu +, dizzy, body aches Time Seen by Provider: 06/06/23 20:33 Mode of Arrival: Ambulatory Source of Information: Patient Limitations: No Limitations Description of Symptoms (Recalled from ER Triage Doc. by RN): patient ambulatory to Ed with c/o headache/nausea today. Patient was seen in [facility] earlier today and tested positive Flu abd was prescribed tamiflu. Patient took 2 doses today and reports its not working. History of Present Illness HPI narrative: 62-year-old female presenting with flulike symptoms. Patient states that she has had multiple flu contacts, was prescribed flu medication after being diagnosed with flu earlier today. States that she came to the emergency department because she stood up from seated position and got blurry vision, felt lightheaded. She has never had this before, so came for further evaluation. Not currently having symptoms on my evaluation. No chest pain, shortness of breath, any other neurologic deficits. Related Data Home Medications Medication Instructions Recorded Confirmed aspirin 81 mg tablet,delayed 81 mg PO DAILY heart health 10/11/19 05/18/21 release levothyroxine 75 mcg tablet 37.5 mcg PO DAILY hormone 10/11/19 05/18/21 venlafaxine 37.5 mg 1 tab PO DAILY Anxiety 10/11/19 05/18/21 capsule,extended release 24 hr baclofen 10 mg tablet 10 mg PO DIRECTED . 05/18/21 05/18/21 ciprofloxacin HCl 500 mg tablet 500 mg PO BID abd 05/18/21 05/18/21 dicyclomine 10 mg capsule 10 mg PO QID abd pain 05/18/21 05/18/21 hydroxyzine HCl 10 mg tablet 10 mg PO Q6H . 05/18/21 05/18/21 metronidazole 500 mg tablet 500 mg PO TID abd 05/18/21 05/18/21 Previous Rx's Medication Instructions Recorded ondansetron 4 mg disintegrating 4 mg PO TIDP PRN Nausea #12 tabs 05/18/21 tablet promethazine 12.5 mg tablet 12.5 mg PO Q8H PRN Nausea And 05/18/21 Vomiting #15 tabs nitrofurantoin 100 mg PO BID 5 days #10 caps 08/05/21 monohydrate/macrocrystals 100 mg capsule ondansetron 4 mg disintegrating 4 mg PO Q8HP PRN Nausea #12 tabs 08/05/21 tablet phenazopyridine 200 mg tablet 200 pow PO TID #6 tabs 08/05/21 azithromycin 250 mg tablet 250 mg PO UD DOSE PK #6 tabs 12/08/21 benzonatate 100 mg capsule 100 mg PO TIDP PRN Cough #30 caps 12/08/21 methylprednisolone 4 mg tablets in 4 mg PO DIRECTED 6 days #21 12/08/21 a dose pack packets ondansetron 4 mg disintegrating 4 mg PO Q6H PRN nausea and 10/31/22 tablet vomiting 5 days #20 tabs naproxen 500 mg tablet 500 mg PO BID PRN pain #20 tabs 11/19/22 amoxicillin 500 mg tablet 500 mg PO TID 10 days #30 tabs 04/12/23 benzonatate 100 mg capsule 100 mg PO TIDP PRN Cough #30 caps 04/12/23 methylprednisolone 4 mg tablets in 4 mg PO DIRECTED #21 tabs 04/12/23 a dose pack ondansetron 4 mg disintegrating 4 mg PO Q6H PRN nausea and 06/06/23 tablet vomiting #10 tabs oseltamivir 75 mg capsule (Tamiflu) 75 mg PO BID #10 caps 06/06/23 prednisone 20 mg tablet 20 mg PO BID #10 tabs 06/06/23 promethazine-DM 6.25 mg-15 mg/5 mL 5 ml PO Q6H PRN Cough #180 mL 06/06/23 oral syrup Allergies Allergy/AdvReac Type Severity Reaction Status Date / Time No Known Allergies Allergy Verified 12/08/21 18:44 [facility] Disclaimer: The information contained in this section may have been updated after the patient was seen, as this information can be updated by other users. 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 current occupational exposures/hazards: No caffeine: Yes ROS Obtained: Yes All systems reviewed & no additional complaints except as documented Physical Exam General General appearance: alert and in no apparent distress Head Head exam: atraumatic and normocephalic Eye Eye exam: Present normal appearance, PERRL and EOMI ENT ENT exam: Present mucous membranes moist Neck Neck exam: Present normal inspection, full ROM and trachea midline Respiratory Respiratory exam: Absent respiratory distress, wheezes, stridor, accessory muscle use or prolonged expiratory phase Cardiovascular Cardiovascular exam: Present normal rhythm Abdominal Exam Abdominal exam: Present soft; Absent distention, tenderness, guarding, rebound or rigidity Extremities Exam Extremities exam: Absent edema Neurological Exam Neurological exam: Present alert, oriented X3, CN II-XII intact and normal gait; Absent motor sensory deficit Skin Skin exam: Present warm and dry; Absent diaphoresis or erythema Medical Decision Making Medical Records Medical records reviewed: Yes I reviewed the patient's medical records. Konstantin Inquiry Pt receiving controlled substance: No Konstantin was queried for this patient: No Vital Signs: 06/06/23 18:24 06/06/23 20:52 Temperature 98.4 F 98.2 F Temperature Source Oral Oral Pulse Rate 73 Pulse Rate [Right] 94 H Respiratory Rate 18 19 Blood Pressure 112/70 Blood Pressure [Right Arm] 121/83 Blood Pressure Mean [Right Arm] 95 Blood Pressure Source Automatic Cuff Blood Pressure Position Sitting Blood Pressure Position [Right Arm] Sitting 02 Sat by Pulse Oximetry 92 L Oxygen Delivery Method Room Air Room Air Orders (Tests/Meds): ED MEDICATIONS Discontinued Medications Generic Name Dose Route Start Last Admin Trade Name Nannette PRN Reason Stop Dose Admin Acetaminophen 1,000 mg 06/06/23 20:10 06/06/23 20:16 Acetaminophen 500mg Tab PO 06/06/23 20:11 1,000 mg ONCE ONE Administration Ondansetron HCl 4 mg 06/06/23 20:11 06/06/23 20:16 Ondansetron 4mg Odt SL 06/06/23 20:12 4 mg ONCE ONE Administration Medical Decision Narrative: 62-year-old female presenting with flulike symptoms. Patient states that she has had multiple flu contacts, was prescribed flu medication after being diagnosed with flu earlier today. States that she came to the emergency department because she stood up from seated position and got blurry vision, felt lightheaded. She has never had this before, so came for further evaluation. Not currently having symptoms on my evaluation. No chest pain, shortness of breath, any other neurologic deficits. History obtained with patient. On physical exam, patient well-appearing, neurologically intact. No acute cardiopulmonary abnormalities. Patient saturating in the low 90s with exertion, at rest patient saturating appropriately. Differential includes viral syndrome, dehydration, pneumonia, among others. On my evaluation, patient stating that she is feeling much better after coming to the emergency department and stay in waiting room, opting for home-going and outpatient management. I feel this is appropriate. Return precautions were given. Critical Care Critical Care Time Critical Care Time: No
[2023-06-06 20:52] VITALS: BP 112/70; PULSE 73; RESP 19; TEMP 36.8; O2SAT 98
== END 2023-06-06 20:53 | disposition home or self-care (01) ==
PROVIDERS: Emergency Provider Emergency Medicine; PCP Family Medicine
DX: R51.9 Headache, unspecified (principal); R11.0 Nausea; R42 Dizziness and giddiness; H53.8 Other visual disturbances; B34.9 Viral infection, unspecified
CPT/HCPCS: 99283

== ENCOUNTER 2023-07-06 11:44 | Emergency (ER) | payer BC, SELFPAY ==
[2023-07-06] VITALS (8 sets, daily range): BP systolic 125–165; BP diastolic 82–109; PULSE 75–87; RESP 14–20; TEMP 36.2–36.6; O2SAT 95–99; BMI 29.0
--- NOTE | 2023-07-06 11:44 | ECG_ITS ---
APPROVED REPORT Exam: Resting ECG HR:78 bpm ECG Measurements Heart Rate 78 AXES WV 147 P 46 QRSd 89 QRS -14 QT 377 T 58 QTc 410 Conclusion SINUS RHYTHM LOW QRS VOLTAGE IN PRECORDIAL LEADS [QRS DEFLECTION < 1.0 mV IN CHEST LEADS] PATTERN CONSISTENT WITH PULMONARY DISEASE Electronically signed by : HEIDY CANDELARIA, 07/07/2023 07:31:35
--- NOTE | 2023-07-06 12:04 | XR_ITS ---
PROCEDURE INFORMATION: Exam: XR Chest Exam date and time: 07/06/2023 12:12 PM Age: 62 years old Clinical indication: Pain; Chest pressure; Additional info: Chest pain TECHNIQUE: Imaging protocol: Radiologic exam of the chest. Views: 1 view. COMPARISON: CR XR CHEST 2V 10/31/2022 8:58 AM FINDINGS: Lungs: Unremarkable. No consolidation. Pleural spaces: Unremarkable. No pleural effusion. No pneumothorax. Heart/Mediastinum: Unremarkable. No cardiomegaly. Bones/joints: Unremarkable. IMPRESSION: No acute findings.
[2023-07-06 12:10] LABS: Basophils # 0.1 K/mm3 (0-0.2); Eosinophils # 0.3 K/mm3 (0.0-0.4); Eosinophils % 2.6 % (0.1-12.0); Hematocrit 46.4 % (37.0-47.0); Lymphocytes # 2.7 K/mm3 (0.7-4.5); Lymphocytes % 24.2 % (10-50); Mean Corpuscular HGB Conc 32.3 g/dL (31.8-35.4); Mean Corpuscular Hemoglobin 31.1 pg (27.0-31.2); Mean Corpuscular Volume 96.3 fl (81-99); Mean Platelet Volume 8.1 fl (7.4-10.4); Monocytes # 0.5 K/mm3 (0.1-1.0); Monocytes % 4.2 % (1.7-9.3); Neutrophils # 7.6 K/mm3 (1.8-7.8); Platelet Count 287 K/mm3 (142-424); Red Blood Count 4.82 M/mm3 (4.20-5.40); Red Cell Distribution Width 13.6 % (11.5-17.5); White Blood Count 11.2 K/mm3 (4.8-10.8)
--- NOTE | 2023-07-06 12:10 | PC.NURSE ---
DR CANDELARIA AT BEDSIDE
[2023-07-06 12:15] LABS: Alanine Aminotransferase 37 U/L (12-78); Albumin Level 4.6 g/dl (3.5-5.0); Albumin/Globulin Ratio 1.6 (1.1-1.8); Alkaline Phosphatase 72 U/L (38-126); Anion Gap 10.7 mEq/L (5-15); Aspartate Amino Transferase 36 U/L (14-36); Bilirubin,Total 0.5 mg/dl (0.2-1.3); Blood Urea Nitrogen 11 mg/dl (7-17); Calcium 9.3 mg/dl (8.4-10.2); Carbon Dioxide 28 mmol/L (22.0-30.0); Chloride 105 mmol/L (98-107); Creatinine Clearance Estimated 73 mL/min (50-200); Estimated Glomerular Filt Rate 72 ml/min (>60); GFR (African American) 87 ML/MIN (>60); Globulin 2.9 g/dL (1.3-3.2); Glucose 136 mg/dl (74-100); Potassium 3.7 mmoL/L (3.5-5.1); Sodium 140 mmol/L (136-145); Total Protein,Serum 7.5 g/dl (6.3-8.2)
--- NOTE | 2023-07-06 12:17 | CT_ITS ---
PROCEDURE INFORMATION: Exam: CT Head Without Contrast Exam date and time: 07/06/2023 11:26 AM Age: 62 years old Clinical indication: Weakness, extremity; Left; Additional info: Cp/asensate L forearm/lue weak TECHNIQUE: Imaging protocol: Computed tomography of the head without contrast. Radiation optimization: All CT scans at this facility use at least one of these dose optimization techniques: automated exposure control; mA and/or kV adjustment per patient size (includes targeted exams where dose is matched to clinical indication); or iterative reconstruction. COMPARISON: CT HEAD/BRAIN WO CON 11/19/2022 1:26 PM FINDINGS: Brain: Normal. No hemorrhage. Unremarkable white matter. No mass effect. Cerebral ventricles: No ventriculomegaly. Paranasal sinuses: Visualized sinuses are unremarkable. No fluid levels. Mastoid air cells: Visualized mastoid air cells are well aerated. Bones/joints: Unremarkable. No acute fracture. Soft tissues: Unremarkable. IMPRESSION: No evidence of acute intracranial abnormality.
--- NOTE | 2023-07-06 12:17 | CT_ITS ---
PROCEDURE INFORMATION: Exam: CTA Head With Contrast, Arteriography Exam date and time: 07/06/2023 11:34 AM Age: 62 years old Clinical indication: Weakness; Additional info: Cp/asensate L forearm/lue weak TECHNIQUE: Imaging protocol: Computed tomographic angiography of the head with contrast. Exam focused on the arteries. 3D rendering (Not supervised by radiologist): MIP and/or 3D reconstructed images were created by the technologist. Radiation optimization: All CT scans at this facility use at least one of these dose optimization techniques: automated exposure control; mA and/or kV adjustment per patient size (includes targeted exams where dose is matched to clinical indication); or iterative reconstruction. Contrast material: ISOVUE; Contrast volume: 100 ml; Contrast route: INTRAVENOUS (IV); COMPARISON: CT HEAD/BRAIN WO CON 07/06/2023 11:26 AM FINDINGS: ANTERIOR CIRCULATION: Right internal carotid artery: Intracranial segment is patent with no significant stenosis. No aneurysm. Right middle cerebral artery: No occlusion or significant stenosis. No aneurysm. Right anterior cerebral artery: No occlusion or significant stenosis. No aneurysm. Left internal carotid artery: Intracranial segment is patent with no significant stenosis. No aneurysm. Left middle cerebral artery: No occlusion or significant stenosis. No aneurysm. Left anterior cerebral artery: No occlusion or significant stenosis. No aneurysm. POSTERIOR CIRCULATION: Right vertebral artery: No occlusion or significant stenosis. No aneurysm. Left vertebral artery: No occlusion or significant stenosis. No aneurysm. Basilar artery: No occlusion or significant stenosis. No aneurysm. Right posterior cerebral artery: No occlusion or significant stenosis. No aneurysm. Left posterior cerebral artery: No occlusion or significant stenosis. No aneurysm. Brain: No definite mass, mass effect, or midline shift. Cerebral ventricles: No ventriculomegaly. Bones/joints: Unremarkable. No acute fracture. Soft tissues: Unremarkable. IMPRESSION: No large vessel stenosis or occlusion.
--- NOTE | 2023-07-06 12:17 | CT_ITS ---
PROCEDURE INFORMATION: Exam: CTA Neck With Contrast Exam date and time: 07/06/2023 11:34 AM Age: 62 years old Clinical indication: Weakness; Additional info: Cp/asensate L forearm/lue weak TECHNIQUE: Imaging protocol: Computed tomographic angiography of the neck with contrast. Exam focused on the cervical segments of the vasculature. 3D rendering (Not supervised by radiologist): MIP and/or 3D reconstructed images were created by the technologist. Radiation optimization: All CT scans at this facility use at least one of these dose optimization techniques: automated exposure control; mA and/or kV adjustment per patient size (includes targeted exams where dose is matched to clinical indication); or iterative reconstruction. Contrast material: ISOVUE; Contrast volume: 100 ml; Contrast route: INTRAVENOUS (IV); COMPARISON: CT CERVICAL SPINE WO CON 10/31/2022 9:05 AM FINDINGS: Right common carotid artery: No stenosis. No dissection or occlusion. Right internal carotid artery: No stenosis of the extracranial segment. No dissection or occlusion. Right external carotid artery: No occlusion or stenosis of the origin. Left common carotid artery: No stenosis. No dissection or occlusion. Left internal carotid artery: No stenosis of the extracranial segment. No dissection or occlusion. Left external carotid artery: No occlusion or stenosis of the origin. Right vertebral artery: No stenosis. No dissection or occlusion. Left vertebral artery: No stenosis. No dissection or occlusion. Soft tissues: Normal. No significant soft tissue swelling. Bones/joints: No acute fracture. IMPRESSION: No stenosis or occlusion. REFERENCES: NASCET CRITERIA. The degree of stenosis in the cervical segment of the internal carotid artery is based on NASCET criteria. Normal is no stenosis. Mild is less than 50% stenosis. Moderate is 50-69% stenosis. Severe is 70% to 99% stenosis. Total occlusion is no detectable patent lumen.
--- NOTE | 2023-07-06 12:17 | CT_ITS ---
PROCEDURE INFORMATION: Exam: CTA Chest With Contrast Exam date and time: 07/06/2023 11:40 AM Age: 62 years old Clinical indication: Pain; Chest pressure; Additional info: Cp/asensate L forearm/lue weak TECHNIQUE: Imaging protocol: Computed tomographic angiography of the chest with contrast. Exam focused on the arteries. 3D rendering (Not supervised by radiologist): MIP and/or 3D reconstructed images were created by the technologist. Radiation optimization: All CT scans at this facility use at least one of these dose optimization techniques: automated exposure control; mA and/or kV adjustment per patient size (includes targeted exams where dose is matched to clinical indication); or iterative reconstruction. Contrast material: ISOVUE; Contrast volume: 100 ml; Contrast route: INTRAVENOUS (IV); COMPARISON: CR XR CHEST 2V 10/31/2022 8:58 AM FINDINGS: Pulmonary arteries: No pulmonary embolism. Aorta: No thoracic aortic dissection or aneurysm. Lungs: Calcified right lower lobe granuloma. Mild linear right upper lobe atelectasis or scarring. Pleural spaces: Unremarkable. No pneumothorax. No pleural effusion. Heart: Unremarkable. No cardiomegaly. No pericardial effusion. Mediastinal space: Calcified infrahilar granuloma. Lymph nodes: Unremarkable. No enlarged lymph nodes. Bones/joints: Unremarkable. No acute fracture. Soft tissues: Unremarkable. IMPRESSION: 1. No pulmonary embolism. 2. No thoracic aortic dissection or aneurysm.
--- NOTE | 2023-07-06 12:18 | PC.NURSE ---
XR AT BEDSIDE
--- NOTE | 2023-07-06 12:20 | PC.NURSE ---
Radiology notified of stroke protocol scans and CTA chest
--- NOTE | 2023-07-06 12:20 | [facility].EDCP ---
Discharge Plan Disposition Patient Disposition: Home, Self-Care Chief Complaint: Chest Pain Prescriptions Prescriptions: No Action aspirin 81 MG tablet,delayed release (DR/EC) 81 mg PO DAILY levothyroxine 75 MCG tablet 37.5 mcg PO DAILY venlafaxine 37.5 MG capsule,extended release 24hr 1 tab PO DAILY Patient Comments: take 1 capsule by mouth once daily metronidazole 500 MG tablet 500 mg PO TID ciprofloxacin HCl 500 MG tablet 500 mg PO BID baclofen 10 MG tablet 10 mg PO DIRECTED hydroxyzine HCl 10 MG tablet 10 mg PO Q6H Patient Comments: TAKE 0.5 TO 1 TABLET BY MOUTH 1 TO 3 TIMES DAILY NEEDED FOR PANIC dicyclomine 10 MG capsule 10 mg PO QID promethazine 12.5 MG tablet 12.5 mg PO Q8H PRN (Reason: Nausea And Vomiting) Qty: 15 0RF ondansetron 4 MG tablet,disintegrating 4 mg PO TIDP PRN (Reason: Nausea) Qty: 12 0RF phenazopyridine 200 MG tablet 200 pow PO TID Qty: 6 0RF nitrofurantoin monohyd/m-cryst 100 MG capsule 100 mg PO BID 5 Days Qty: 10 0RF ondansetron 4 MG tablet,disintegrating 4 mg PO Q8HP PRN (Reason: Nausea) Qty: 12 0RF azithromycin 250 MG tablet 250 mg PO UD DOSE PK Qty: 6 0RF Rx Instructions: Take two (2) tablets today, then one (1) tablet days #2 thru #5 benzonatate 100 MG capsule 100 mg PO TIDP PRN (Reason: Cough) Qty: 30 0RF methylprednisolone 4 MG tablets,dose pack 4 mg PO DIRECTED 6 Days Qty: 21 0RF amoxicillin [amoxicillin] 500 mg tablet 500 mg PO TID 10 Days Qty: 30 0RF benzonatate [benzonatate] 100 mg capsule 100 mg PO TIDP PRN (Reason: Cough) Qty: 30 0RF methylprednisolone 4 mg Tablets,Dose Pack 4 mg PO DIRECTED Qty: 21 0RF ondansetron 4 mg tablet,disintegrating 4 mg PO Q6H PRN (Reason: nausea and vomiting) 5 Days Qty: 20 0RF naproxen 500 mg tablet 500 mg PO BID PRN (Reason: pain) Qty: 20 0RF oseltamivir [Tamiflu] 75 mg capsule 75 mg PO BID Qty: 10 0RF prednisone 20 mg tablet 20 mg PO BID Qty: 10 0RF promethazine-DM 6.25-15 mg/5 mL syrup 5 ml PO Q6H PRN (Reason: Cough) Qty: 180 0RF ondansetron 4 mg tablet,disintegrating 4 mg PO Q6H PRN (Reason: nausea and vomiting) Qty: 10 0RF Referrals Follow up/Referrals: Kalie Estevez [Primary Care Provider] - See instructions Gino Mckenzie DO [Staff Physician] - See instructions Gino Orosco MD [Staff Physician] - See instructions Activity Restrictions/Add. Instructions Additional Instructions/Restrictions: At this time it was felt you are safe to be discharged home. If new or worsening symptoms please do not hesitate to return the emergency department. Please call and schedule appoint with Dr. Orosco for further evaluation of your chest pain and schedule an appoint with Dr. Mckenzie to be your new family doctor. Clinical Impressions Clinical Impression: Chest pain, Cervical radiculopathy Discharge ED Provider: Tristan Kuo [facility] General Chief Complaint: Chest Pain Stated Complaint: chest pain Time Seen by Provider: 07/06/23 11:44 Mode of Arrival: Ambulatory Source of Information: Patient Limitations: No Limitations Description of Symptoms (Recalled from ER Triage Doc. by RN): pt c/o L sided chest pain, SOA, BOATENG and numbness down her L arm. pt states the pain is 7/10 and tight in nature. pt reports she had some minor intermittant chest pain that resolved on its own. pt took 81mg aspirin this am. History of Present Illness HPI narrative: Patient is a 62-year-old female with no past medical history of cardiovascular disease presents emergency department for evaluation of chest pain. Patient had transient chest pain which improved yesterday, she went to bed at approximately 11 PM last known normal. This morning she awoke with sensory changes on her left upper extremity distal to her elbow, decreased function of her left hand, chest pain that radiated down her left upper extremity ultimately causing her to present here for continued evaluation. Patient has had sensory changes in the left upper extremity before however usually are transient after sleep and resolve. No visual changes from baseline, no speech changes, no gait changes, no trauma. Related Data Home Medications Medication Instructions Recorded Confirmed aspirin 81 mg tablet,delayed 81 mg PO DAILY heart [facility] 10/11/19 05/18/21 release levothyroxine 75 mcg tablet 37.5 mcg PO DAILY hormone 10/11/19 05/18/21 venlafaxine 37.5 mg 1 tab PO DAILY Anxiety 10/11/19 05/18/21 capsule,extended release 24 hr baclofen 10 mg tablet 10 mg PO DIRECTED . 05/18/21 05/18/21 ciprofloxacin HCl 500 mg tablet 500 mg PO BID abd 05/18/21 05/18/21 dicyclomine 10 mg capsule 10 mg PO QID abd pain 05/18/21 05/18/21 hydroxyzine HCl 10 mg tablet 10 mg PO Q6H . 05/18/21 05/18/21 metronidazole 500 mg tablet 500 mg PO TID abd 05/18/21 05/18/21 Previous Rx's Medication Instructions Recorded ondansetron 4 mg disintegrating 4 mg PO TIDP PRN Nausea #12 tabs 05/18/21 tablet promethazine 12.5 mg tablet 12.5 mg PO Q8H PRN Nausea And 05/18/21 Vomiting #15 tabs nitrofurantoin 100 mg PO BID 5 days #10 caps 08/05/21 monohydrate/macrocrystals 100 mg capsule ondansetron 4 mg disintegrating 4 mg PO Q8HP PRN Nausea #12 tabs 08/05/21 tablet phenazopyridine 200 mg tablet 200 pow PO TID #6 tabs 08/05/21 azithromycin 250 mg tablet 250 mg PO UD DOSE PK #6 tabs 12/08/21 benzonatate 100 mg capsule 100 mg PO TIDP PRN Cough #30 caps 12/08/21 methylprednisolone 4 mg tablets in 4 mg PO DIRECTED 6 days #21 12/08/21 a dose pack packets ondansetron 4 mg disintegrating 4 mg PO Q6H PRN nausea and 10/31/22 tablet vomiting 5 days #20 tabs naproxen 500 mg tablet 500 mg PO BID PRN pain #20 tabs 11/19/22 amoxicillin 500 mg tablet 500 mg PO TID 10 days #30 tabs 04/12/23 benzonatate 100 mg capsule 100 mg PO TIDP PRN Cough #30 caps 04/12/23 methylprednisolone 4 mg tablets in 4 mg PO DIRECTED #21 tabs 04/12/23 a dose pack ondansetron 4 mg disintegrating 4 mg PO Q6H PRN nausea and 06/06/23 tablet vomiting #10 tabs oseltamivir 75 mg capsule (Tamiflu) 75 mg PO BID #10 caps 06/06/23 prednisone 20 mg tablet 20 mg PO BID #10 tabs 06/06/23 promethazine-DM 6.25 mg-15 mg/5 mL 5 ml PO Q6H PRN Cough #180 mL 06/06/23 oral syrup Allergies Allergy/AdvReac Type Severity Reaction Status Date / Time No Known Allergies Allergy Verified 07/06/23 12:05 [facility] Disclaimer: The information contained in this section may have been updated after the patient was seen, as this information can be updated by other users. 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 current occupational exposures/hazards: No caffeine: Yes ROS Obtained: Yes Systems reviewed as appropriate & no additional complaints except as documented Physical Exam General General appearance: alert and in no apparent distress Head Head exam: atraumatic and normocephalic Eye Eye exam: Present PERRL and EOMI ENT ENT exam: Present mucous membranes moist Neck Neck exam: Present normal inspection Chest Chest inspection: Present normal inspection and symmetric chest wall rise Respiratory Respiratory exam: Present normal lung sounds bilaterally; Absent respiratory distress Cardiovascular Cardiovascular exam: Present regular rate, normal rhythm and other (Palpable bilateral radial pulses) Abdominal Exam Abdominal exam: Present soft; Absent tenderness Extremities Exam Extremities exam: Present normal inspection Neurological Exam Neurological exam: Present alert, oriented X3, CN II-XII intact, motor sensory deficit (No sensation to noxious stimuli left upper extremity from the elbow to the wrist, decreased sensation over the hand and all dermatomes. 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.) and other (Left upper extremity 4 out of 5 strength, remainder of extremities 5 out of 5 strength.) Psychiatric Psychiatric exam: Present normal affect Skin Skin exam: Present warm and dry HEART Score HEART Score HEART Score assessment performed?: Yes History (anamnesis): Moderately suspicious ECG: Non-specific disturbance Age: 45-65 years Risk factors: 1-2 risk factors Troponin: </= normal limit HEART Score: 4 Critical Care Critical Care Time Critical Care Time: No Medical Decision Making Konstantin Inquiry Pt receiving controlled substance: No Vital Signs Vital Signs: 07/06/23 11:51 07/06/23 11:56 07/06/23 12:00 Temperature 97.2 F L Temperature Source Oral Pulse Rate 81 83 Pulse Rate [Left] 87 Respiratory Rate 16 19 14 Blood Pressure 160/95 H 143/95 H Blood Pressure [Right Arm] 165/107 H Blood Pressure Mean Blood Pressure Mean [Right Arm] 126 Blood Pressure Source [Right Arm] Automatic Cuff Blood Pressure Position [Right Arm] Sitting 02 Sat by Pulse Oximetry 97 95 97 Oxygen Delivery Method Room Air Room Air 07/06/23 13:00 07/06/23 13:31 Temperature Temperature Source Pulse Rate 75 78 Pulse Rate [Left] Respiratory Rate 16 20 Blood Pressure 133/85 125/82 Blood Pressure [Right Arm] Blood Pressure Mean 96 Blood Pressure Mean [Right Arm] Blood Pressure Source [Right Arm] Blood Pressure Position [Right Arm] 02 Sat by Pulse Oximetry 95 96 Oxygen Delivery Method Room Air Lab Data Labs: Lab Results 07/06/23 11:50: WBC 11.2 H, RBC 4.82, Hgb 15.0, Hct 46.4, MCV 96.3, MCH 31.1, MCHC 32.3, RDW 13.6, Plt Count 287, MPV 8.1, Neut % (Auto) 68.0, Lymph % (Auto) 24.2, [place] % (Auto) 4.2, Eos % (Auto) 2.6, Baso % (Auto) 1.0, Neut # (Auto) 7.6, Lymph # (Auto) 2.7, [place] # (Auto) 0.5, Eos # (Auto) 0.3, Baso # (Auto) 0.1, Sodium 140, Potassium 3.7, Chloride 105, Carbon Dioxide 28, Anion Gap 10.7, BUN 11, Creatinine 0.80, Estimated Creat Clear 73, Estimated GFR 72, Est GFR ( Amer) 87, Glucose 136 H, Calcium 9.3, Total Bilirubin 0.5, AST 36, ALT 37, Alkaline Phosphatase 72, Troponin I < 0.01, Total Protein 7.5, Albumin 4.6, Globulin 2.9, Albumin/Globulin Ratio 1.6 07/06/23 11:50 07/06/23 11:50 Response Orders (Tests/Meds): ED MEDICATIONS Discontinued Medications Generic Name Dose Route Start Last Admin Trade Name Freq PRN Reason Stop Dose Admin Iopamidol 200 ml 07/06/23 12:46 07/06/23 13:19 Iopamidol-370 (76%);100ml Bottle IV 07/06/23 12:47 200 ml ONCE ONE Administration Sodium Chloride 100 ml 07/06/23 12:46 07/06/23 13:19 0.9 % Sodium Chloride 50 Ml Vial IV 07/06/23 12:47 100 ml ONCE ONE Administration Sodium Chloride 10 ml 07/06/23 12:46 07/06/23 13:19 Sodium Chloride 0.9% 10ml Syr (Rad Only) IV 07/06/23 12:47 10 ml ONCE ONE Administration ORDERS Category Date Time Status CT angio chest - dissection Stat Cat Scan 07/06/23 12:[address] angio head Stat Cat Scan 07/06/23 12:[address] angio neck Stat Cat Scan 07/06/23 12:[address] head/brain wo con Stat Cat Scan 07/06/23 12:17 Completed CXR --portable [XR chest portable] Stat Exams 07/06/23 12:04 Completed Complete Blood Count Auto Diff Stat Lab 07/06/23 11:50 Completed Comprehensive Metabolic Panel Stat Lab 07/06/23 11:50 Completed Troponin I Q3H Lab 07/06/23 14:35 Received Troponin I Q3H Lab 07/06/23 18:15 Ordered Troponin I Stat Lab 07/06/23 11:50 Completed ECG Data Tracing #1: ECG Narrative: Independently interpreted by me, rate is 78, rhythm is regular, no ST elevation in anatomical contiguous leads, QTc 410 MDM Narrative Medical Decision Narrative: In summary patient is a 62-year-old female past medical history described above who presents emergency department for evaluation of chest pain and neurologic deficits. Patient is hemodynamically stable and nontoxic-appearing upon arrival. It is concerning that patient has chest pain and and asensate left forearm with weakness in her left hand. Differential diagnosis includes aortic dissection, CVA, radiculopathy, among others. Workup will be conducted with emergent CTA head, neck, chest. Noncontrasted CT scan of the head will be obtained, hematologic labs, EKG, serial troponins will be obtained. NIH is 1 upon arrival. Patient is well outside of stroke window for thrombolytics. Workup reviewed by me, hematologic labs are nonactionable, initial troponin undetectably low. Noncontrasted CT scan informally interpreted by me, no large intra-axial hemorrhage with midline shift. Formal noncontrasted CT scan of the head and CTA of the head and neck show no acute pathology, no large vessel stenosis or occlusion. Upon repeat evaluation patient had large resolution of her pain, serial troponins are flat. The case was discussed with hospital medicine who evaluated the patient. Patient had improving left upper extremity altered sensorium consistent with her previous episodes. It is reproducible with certain positions of the neck. I agree with hospital medicine that this likely represents cervical radiculopathy and is not senior human resources representative of CVA. Given this patient is appropriate for outpatient management at this time and will be referred to Dr. Mckenzie for establishing care and possible PT referral as well as Dr. Orosco for cardiology evaluation. Patient was given return precautions.
--- NOTE | 2023-07-06 12:21 | PC.NURSE ---
fsbs 134
[2023-07-06 12:30] LABS: Troponin I < 0.01 ng/ml (0.00-0.034)
--- NOTE | 2023-07-06 12:46 | PC.NURSE ---
pt returned from ct
--- NOTE | 2023-07-06 13:01 | PC.NURSE ---
DR CANDELARIA ACTIVATED STROKE ALERT WITH
[2023-07-06] MEDS: 0.9 % SODIUM CHLORIDE 50 ML VIAL 100 ML IV (13:19)
[2023-07-06] MEDS: IOPAMIDOL-370 (76%);100ML BOTTLE 200 ML IV (13:19)
[2023-07-06] MEDS: SODIUM CHLORIDE 0.9% 10ML SYR (RAD ONLY) 10 ML IV (13:19)
--- NOTE | 2023-07-06 14:22 | PC.NURSE ---
DR CHOWDARY AT BEDSIDE
--- NOTE | 2023-07-06 14:33 | PC.NURSE ---
I rounded on pt, pt stated she was ok and had been to the restroom. she needed to be hooked back up on bp, pulse ox & heart monitor.
--- NOTE | 2023-07-06 14:39 | PC.NURSE ---
2nd troponin sent
[2023-07-06 15:08] LABS: Troponin I < 0.01 ng/ml (0.00-0.034)
--- NOTE | 2023-07-06 16:14 | EXP.MED.CON ---
History of Present Illness *Admission Date: 07/06/23 *Reason for visit:: Left arm and neck pain *History of present illness: Ms. Roque is a 62-year-old female with history of IBD, chronic postconcussive headache, hypothyroid, anxiety. She presented to the ER with complaint of left-sided chest pain, numbness down her left arm, pain 7 out of 10. She woke up with this pain. ER perform workup for cardiac etiology. Concern for possible stroke as well given decreased sensation and numbness in the left hand. Decreased sensation very focal from elbow down. Last known normal was last night before bed. Medicine was consulted to assist with evaluation for possible stroke versus other neurologic issue. Initial workup for cardiac etiology of chest pain negative with serial troponins negative. No EKG changes. On interview, patient states she has had intermittent left arm pain and numbness in her forearm but it generally improves over 30 to 60 minutes after waking up. Also having some increased tension and pain in her left upper shoulder and neck. Found to have multiple trigger points on exam. Denies any focal neurologic symptoms in her lower legs. No slurred speech, facial asymmetry, change in vision. 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 Also reports additional history that she has significant degenerative disc disease in her back. She is alert and oriented x 4. No slurred speech. Chest pain improving. On room air and hemodynamically stable. [facility] Disclaimer: The information contained in this section may have been updated after the patient was seen, as this information can be updated by other users. 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 current occupational exposures/hazards: No caffeine: Yes Review of Systems Review of Systems Review of systems (narrative): 14 point review of systems performed, pertinent positives and negatives as per HPI Exam Data for Last 24 hours Vital signs and Labs for Last 24 Hours: Temp Pulse Resp BP Pulse Ox O2 Del Method 97.9 F 76 18 145/99 H 97 Room Air 07/06/23 15:31 07/06/23 15:31 07/06/23 15:31 07/06/23 15:31 07/06/23 15:00 07/06/23 15:31 Laboratory Results - last 24 hr 07/06/23 11:50: WBC 11.2 H, RBC 4.82, Hgb 15.0, Hct 46.4, MCV 96.3, MCH 31.1, MCHC 32.3, RDW 13.6, Plt Count 287, MPV 8.1, Neut % (Auto) 68.0, Lymph % (Auto) 24.2, [place] % (Auto) 4.2, Eos % (Auto) 2.6, Baso % (Auto) 1.0, Neut # (Auto) 7.6, Lymph # (Auto) 2.7, [place] # (Auto) 0.5, Eos # (Auto) 0.3, Baso # (Auto) 0.1, Sodium 140, Potassium 3.7, Chloride 105, Carbon Dioxide 28, Anion Gap 10.7, BUN 11, Creatinine 0.80, Estimated Creat Clear 73, Estimated GFR 72, Est GFR ( Amer) 87, Glucose 136 H, Calcium 9.3, Total Bilirubin 0.5, AST 36, ALT 37, Alkaline Phosphatase 72, Troponin I < 0.01, Total Protein 7.5, Albumin 4.6, Globulin 2.9, Albumin/Globulin Ratio 1.6 07/06/23 14:35: Troponin I < 0.01 I & O for Last 24 hours: Intake & Output 07/03/23 07/04/23 07/05/23 07/07/23 23:59 23:59 23:59 00:59 Weight 81.647 kg Constitutional Constitutional: no acute distress and cooperative Comments: Overweight *Routine HEENT Exam Head: Present normocephalic Eye: Present EOMI and PERRL ENT: Present mucous membranes moist *Routine Neck Exam Neck: Present supple; Absent lymphadenopathy Comments: Tender left upper trapezius. Multiple trigger points.; Positive Spurling test with pain down left arm when head turned to the left. *Routine Respiratory Exam Respiratory: Present CTA bilaterally; Absent rhonchi, wheezes or crackles *Routine Cardiovascular Exam Cardiovascular: Present RRR; Absent murmur *Routine Abdominal Exam Abdominal: Present soft and normoactive bowel sounds; Absent tenderness *Routine Extremities Exam Extremities: Absent cyanosis, clubbing or edema *Routine Skin Exam Skin: Present warm; Absent rash *Routine Neurological Exam Neurological: Present alert, oriented X3, sensory deficit (Decreased sensation in distribution of radial and ulnar nerves left arm.) and moving all extremities; Absent motor deficit or altered mental status Comments: Strain intact bilateral upper extremities by my exam. Meds Home Medications and Allergies Home Medications Medication Instructions Recorded Confirmed Type aspirin 81 mg tablet,delayed 81 mg PO DAILY heart health 10/11/19 05/18/21 History release levothyroxine 75 mcg tablet 37.5 mcg PO DAILY hormone 10/11/19 05/18/21 History venlafaxine 37.5 mg 1 tab PO DAILY Anxiety 10/11/19 05/18/21 History capsule,extended release 24 hr baclofen 10 mg tablet 10 mg PO DIRECTED . 05/18/21 05/18/21 History ciprofloxacin HCl 500 mg tablet 500 mg PO BID abd 05/18/21 05/18/21 History dicyclomine 10 mg capsule 10 mg PO QID abd pain 05/18/21 05/18/21 History hydroxyzine HCl 10 mg tablet 10 mg PO Q6H . 05/18/21 05/18/21 History metronidazole 500 mg tablet 500 mg PO TID abd 05/18/21 05/18/21 History ondansetron 4 mg disintegrating 4 mg PO TIDP PRN Nausea #12 tabs 05/18/21 Rx tablet promethazine 12.5 mg tablet 12.5 mg PO Q8H PRN Nausea And 05/18/21 Rx Vomiting #15 tabs nitrofurantoin 100 mg PO BID 5 days #10 caps 08/05/21 Rx monohydrate/macrocrystals 100 mg capsule ondansetron 4 mg disintegrating 4 mg PO Q8HP PRN Nausea #12 tabs 08/05/21 Rx tablet phenazopyridine 200 mg tablet 200 pow PO TID #6 tabs 08/05/21 Rx azithromycin 250 mg tablet 250 mg PO UD DOSE PK #6 tabs 12/08/21 Rx benzonatate 100 mg capsule 100 mg PO TIDP PRN Cough #30 caps 12/08/21 Rx methylprednisolone 4 mg tablets in 4 mg PO DIRECTED 6 days #21 12/08/21 Rx a dose pack packets ondansetron 4 mg disintegrating 4 mg PO Q6H PRN nausea and 10/31/22 Rx tablet vomiting 5 days #20 tabs naproxen 500 mg tablet 500 mg PO BID PRN pain #20 tabs 11/19/22 Rx amoxicillin 500 mg tablet 500 mg PO TID 10 days #30 tabs 04/12/23 Rx benzonatate 100 mg capsule 100 mg PO TIDP PRN Cough #30 caps 04/12/23 Rx methylprednisolone 4 mg tablets in 4 mg PO DIRECTED #21 tabs 04/12/23 Rx a dose pack ondansetron 4 mg disintegrating 4 mg PO Q6H PRN nausea and 06/06/23 Rx tablet vomiting #10 tabs oseltamivir 75 mg capsule (Tamiflu) 75 mg PO BID #10 caps 06/06/23 Rx prednisone 20 mg tablet 20 mg PO BID #10 tabs 06/06/23 Rx promethazine-DM 6.25 mg-15 mg/5 mL 5 ml PO Q6H PRN Cough #180 mL 06/06/23 Rx oral syrup New Prescriptions to Start Prescriptions: Allergies Allergy/AdvReac Type Severity Reaction Status Date / Time No Known Allergies Allergy Verified 07/06/23 12:05 Results Labs 07/06/23 11:50 07/06/23 11:50 Labs: Abnormal lab results 07/06/23 Range/Units 11:50 WBC 11.2 H (4.8-10.8) K/mm3 Glucose 136 H (74-100) mg/dl H & H 07/06/23 Range/Units 11:50 Hgb 15.0 (12.2-16.2) g/dL Hct 46.4 (37.0-47.0) % All other labs normal. Assessment and Plan *Assessment and plan (1) Cervical radiculopathy: Status: Acute Category: Medical Code(s): M54.12 - Radiculopathy, cervical region (2) Chest pain: Status: Acute Category: Medical Code(s): R07.9 - Chest pain, unspecified (3) Degenerative disc disease: Status: Acute Category: Medical Plan 62-year-old female who woke up with numbness and weakness in left forearm. Also complaining of left shoulder, neck, chest pain. Medicine consulted to assist with evaluation and disposition. Discussed case with ER physician, concern for stroke, ACS, cervical radiculopathy, MS, nerve impingement, or other unknown etiology. Review of workup performed by the ER shows EKG with no ischemic changes. Serial troponins x 2 less than 0.01. Normal kidney function and electrolytes. CTA of head and neck showed no stenosis or acute stroke. On exam, patient has positive Spurling sign. Multiple trigger points in left upper trapezius. Given progression of symptoms over weeks, finding on physical exam, reassuring head imaging, symptoms most consistent with cervical radiculopathy in a distribution of C6, 7, 8. Discussed stretching and massage. Demonstrated neck stretches. Recommend referral to physical therapy for dry needling and e-stim. Encouraged symptom management with Tylenol or ibuprofen. Patient medically stable for discharge home with further outpatient workup and management. Very low concern for stroke or acute central neurologic insult. Discussed findings and diagnosis with patient and ER, patient expressed comfort with plan.
== END 2023-07-06 15:38 | disposition home or self-care (01) ==
PROVIDERS: Emergency Provider Emergency Medicine; PCP Family Medicine
DX: M54.12 Radiculopathy, cervical region (principal); R07.9 Chest pain, unspecified
CPT/HCPCS: 70450; 70496; 70498; 71045; 71275; 80053; 84484; 85025; 93005; 99285; Q9967

== ENCOUNTER 2023-07-11 10:06 | Outpatient (CLI) | payer BC, SELFPAY ==
[2023-07-11 12:07] LABS: Chol/HDL Ratio 3.8 (1-3.5); Cholesterol 234 mg/dl (140-200); HDL Cholesterol 62 mg/dl (40-60); Triglycerides 140 mg/dl (30-150); VLDL Cholesterol 28 mg/dL (0-40)
[2023-07-11 12:18] LABS: Direct LDL Cholesterol 119.21 mg/dL (100-129)
[2023-07-11 12:22] LABS: 25-OH Vitamin D, Total 92.6 ng/mL (30-100)
[2023-07-11 12:35] LABS: Thyroid Stimulating Hormone 7.59 uIU/mL (0.465-4.68)
[2023-07-11 12:42] LABS: Hemoglobin A1C 5.9 % (4.0-6.0)
[2023-07-11 17:13] LABS: Free T4 (Free Thyroxine) 0.78 ng/dl (0.78-2.19)
== END 2023-07-11 23:59 ==
LOC: LAB 10:06
PROVIDERS: PCP Internal Medicine; Visit Provider Internal Medicine
DX: E03.9 Hypothyroidism, unspecified (principal); E66.9 Obesity, unspecified; Z68.31 Body mass index [BMI] 31.0-31.9, adult; Z79.899 Other long term (current) drug therapy
CPT/HCPCS: 36415; 80061; 82306; 83036; 84439; 84443

== ENCOUNTER 2023-07-16 07:01 | Outpatient (CLI) | payer SELFPAY ==
--- NOTE | 2023-07-16 07:09 | CT_ITS ---
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 A noncontrast coronary calcium scan was performed. A CT attenuation threshold of 130 Hounsfield units (HU) was used for the detection of calcium in contiguous voxels of 1 sq mm in area to be counted as individual lesions. A tube voltage of 120 KVp was used. The patient received no medications prior to the coronary calcium CT. Image Reconstruction Transaxial images were reconstructed at 0.67 mm slide thickness. Data was reviewed interactively on an advanced workstation capable of 2 and 3-dimensional displays in all conventional reconstruction formats, including multiplanar reformations, maximum intensity projections, curved multiplanar reformations, and volume rendered reconstructions. When applicable, selected routine images describing the relevant coronary anatomy and pathology were saved and sent to PACS. Complications None Technical Quality Overall image quality was good. Total DLP (Dose-Length Product) is 161.9 mGy-cm. The reported value represents the total of one or more individual components during the CT acquisition of this date and at this time, and as such, the same value may appear in more than one CT report depending on the interpreting/reporting physicians. COMPARISON None FINDINGS CT Coronary Calcium Scoring LMA (Left Main Artery) = 0 LAD (Left Anterior Descending) = 265 LCX (Left Coronary Circumflex) = 0 RCA (Right Coronary Artery) = 0 Total Calcium Score = 265 using the AJ-130 method. There is also identifiable calcification in the septal mitral annulus. IMPRESSION -Coronary artery calcification is present. -Total Calcium Score (Agatston Score) = 265 using the AJ-130 method. -The observed calcium score of 265 is at 92nd percentile for subjects of the same age, sex, and race/ethnicity. The interpretation of the calcium heart score is based on the following continuum*: 0 = no calcified plaque detected (risk of coronary artery disease is very low ??? less than 5%) 1-10 = calcium detected in extremely minimal levels (risk of coronary diseases is still low ??? less than 10%) 11-100 = mild levels of plaque detected with certainty (mild or minimal narrowing of heart arteries is likely) 101-400 = definite,at least moderate levels of plaque detected (relatively high risk of a heart attack within 3-5 years) >401-999 = extensive levels of plaque detected (high risk of heart attack, high levels of vascular disease are present, high likelihood of at least one significant coronary narrowing) *The calcium heart score quantifies the burden of coronary calcification/plaque in the coronary arteries. The calcium heart score does not evaluate the presence or the burden of non-calcified (i.e. soft) plaque. The coronary and cardiac findings of this Coronary Calcium CT were reviewed, reported, and signed by Lencho Coffman MD (Returned Materials Inspector). Conclusion Electronically signed by : Lola Coffman MD 07/16/2023 21:59:10
== END 2023-07-16 23:59 ==
PROVIDERS: PCP Internal Medicine; Visit Provider Physician Assistant
DX: R07.9 Chest pain, unspecified (principal); R94.31 Abnormal electrocardiogram [ECG] [EKG]; R20.0 Anesthesia of skin; M54.12 Radiculopathy, cervical region
CPT/HCPCS: 75571

== ENCOUNTER 2023-07-17 11:44 | Outpatient (CLI) | payer BC, SELFPAY ==
--- NOTE | 2023-07-17 11:48 | XR_ITS ---
FINAL REPORT CLINICAL HISTORY: Hip/back pain FINDINGS: RIGHT HIP Two views of the right hip demonstrate no acute fracture or dislocation. The joint spaces appear normal. There are mild degenerative changes. The visualized bony structures are well aligned. No soft tissue abnormality is seen. IMPRESSION: No acute bony abnormality. Reviewed, Interpreted and Dictated by Vitor Luna III, MD Transcribed by Sofy Smith Authenticated and [facility]
--- NOTE | 2023-07-17 11:48 | XR_ITS ---
FINAL REPORT CLINICAL HISTORY: Hip/back pain FINDINGS: LEFT HIP 2 views of the left hip are obtained. There is no acute fracture or dislocation. There are mild degenerative changes. Visualized joint spaces are normally aligned. There is no acute soft tissue abnormality. IMPRESSION: No acute bony abnormality. Reviewed, Interpreted and Dictated by Vitor Luna III, MD Transcribed by Sofy Smith Authenticated and [facility]
--- NOTE | 2023-07-17 11:48 | XR_ITS ---
FINAL REPORT CLINICAL HISTORY: lower back pain FINDINGS: LUMBAR SPINE AP and lateral views were obtained. There is no acute fracture or malalignment. Vertebrae are normal height. Prevertebral soft tissues are unremarkable. IMPRESSION: No acute bony abnormality. Reviewed, Interpreted and Dictated by Vitor Luna III, MD Transcribed by Sofy Smith Authenticated and . [facility]
== END 2023-07-17 23:59 ==
LOC: RAD 11:45
PROVIDERS: PCP Internal Medicine; Visit Provider Internal Medicine
DX: M25.551 Pain in right hip (principal); M25.552 Pain in left hip; M54.50 Low back pain, unspecified
CPT/HCPCS: 72100; 73502

== ENCOUNTER 2023-09-15 14:40 | Emergency (ER) | payer MEDICARE, SELFPAY ==
[2023-09-15] VITALS (9 sets, daily range): BP systolic 142–162; BP diastolic 80–114; PULSE 69–95; RESP 18–19; TEMP 36.5–36.9; O2SAT 94–97; BMI 31.1; BMI 30.9
--- NOTE | 2023-09-15 15:17 | ED_ITS ---
Discharge Plan Disposition Patient Disposition: Home, Self-Care Condition: Good Prescriptions Prescriptions: New pantoprazole [Protonix] 40 mg tablet,delayed release (DR/EC) 40 mg PO DAILY Qty: 30 0RF No Action naproxen sodium [Aleve] 220 mg tablet 220 mg PO Q8H methenamine hippurate 1 gram tablet 1 g PO DAILY Lacto no.43-[id number]-EMK-larch 25B cell-25B cell-50 mg capsule 1 cap PO DAILY methocarbamol 1,000 mg tablet 1,000 mg PO BID PRN (Reason: muscle spasm) Qty: 60 2RF Rx Instructions: Keep 8 hours between doses of methocarbamol and cyclobenzaprine cyclobenzaprine 5 mg tablet 5 mg PO HS PRN (Reason: muscle spasm) Qty: 30 1RF ascorbic acid (vitamin C) [Vitamin C] 500 mg tablet 500 mg PO DAILY Qty: 90 1RF aspirin 81 mg tablet,delayed release (DR/EC) 81 mg PO DAILY Qty: 90 1RF cholecalciferol (vitamin D3) 125 mcg (5,000 unit) capsule 125 mcg PO DAILY Qty: 90 1RF cyanocobalamin (vitamin B-12) 2,500 mcg tablet 2,500 mcg PO DAILY Qty: 90 1RF fexofenadine [Milady Allergy] 180 mg tablet 180 mg PO DAILY Qty: 30 1RF krill oil 500 mg capsule 500 mg PO DAILY Qty: 90 1RF montelukast 10 mg tablet 10 mg PO HS Qty: 90 1RF venlafaxine 75 mg capsule,extended release 24hr 75 mg PO DAILY Qty: 90 0RF trazodone 50 mg tablet 25 mg PO DAILY Qty: 90 0RF levothyroxine 137 mcg capsule 137 mcg PO DAILY Qty: 30 1RF Referrals Follow up/Referrals: Vitor Hargrove MD [Staff Physician] - See instructions Gino Mckenzie DO [Primary Care Provider] - See instructions Activity Restrictions/Add. Instructions Additional Instructions/Restrictions: I have referred you to general surgery for upper endoscopy. Follow-up with your PCP closely. Clinical Impressions Clinical Impression: Abdominal pain, epigastric Instructions Patient Instructions: DI for Acute Abdominal Pain Discharge ED Provider: Tristan Kuo [facility] General Chief complaint: Abdominal Pain Stated complaint: abd pain Mode of Arrival: Ambulatory Source of Information: Patient Limitations: No Limitations Time Seen by Provider: 09/15/23 15:17 Description of Symptoms (Recalled from Triage Doc. by RN): PATIENT C/O EPIGASTRIC PAIN AND NAUSEA THAT STARTED 2 WEEKS AGO AND HAS GOTTEN WORSE. SHE STATES SHE HAS BEEN TAKING MUSCLE RELAXERS AND NSAIDS BUT THEY ARE NOT HELPING HEENT Symptoms (Recalled from RN notes): No Resp Symptoms (Recalled from RN notes): No Skin Symptoms (Recalled from RN notes): No MS Symptoms (Recalled from RN notes): No Functional Status (Recalled from RN notes): WNL History of Present Illness Provider Complaint: Patient states that she started about 2 wks ago with pain on and off in her upper abdomen that has got progressively worse States that she has been taking tums thinking that would help it but it hasnt and today it is worse and she is very uncomfortable States she feels like her stomach is bloated and somewhat swollen and the pain is worse so she came in to get checked States she does still have her gallbladder and last BM was yesterday and normal Related Data Home Medications Medication Instructions Recorded Confirmed Lactobacillus 25 billion 1 cap PO DAILY 07/10/23 08/20/23 cell-Bifido 25 billion [id number] capsule methenamine hippurate 1 gram tablet 1 g PO DAILY 07/10/23 08/20/23 naproxen sodium 220 mg tablet 220 mg PO Q8H 07/10/23 08/20/23 (Aleve) Previous Rx's Medication Instructions Recorded ascorbic acid (vitamin C) 500 mg 500 mg PO DAILY #90 tabs 08/20/23 tablet (Vitamin C) aspirin 81 mg tablet,delayed 81 mg PO DAILY heart health #90 08/20/23 release tabs cholecalciferol (vitamin D3) 125 125 mcg PO DAILY #90 caps 08/20/23 mcg (5,000 unit) capsule cyanocobalamin (vitamin B-12) 2,500 mcg PO DAILY #90 tabs 08/20/23 2,500 mcg tablet cyclobenzaprine 5 mg tablet 5 mg PO HS PRN muscle spasm #30 08/20/23 tabs fexofenadine 180 mg tablet 180 mg PO DAILY #30 tabs 08/20/23 (Milady Allergy) krill oil 500 mg capsule 500 mg PO DAILY #90 caps 08/20/23 levothyroxine 137 mcg capsule 137 mcg PO DAILY #30 caps 08/20/23 methocarbamol 1,000 mg tablet 1,000 mg PO BID PRN muscle spasm 08/20/23 #60 tabs montelukast 10 mg tablet 10 mg PO HS #90 tabs 08/20/23 trazodone 50 mg tablet 25 mg (1/2 x 50 mg) PO DAILY #90 08/20/23 tabs venlafaxine 75 mg capsule,extended 75 mg PO DAILY #90 caps 08/20/23 release 24 hr pantoprazole 40 mg tablet,delayed 40 mg PO DAILY #30 tabs 09/15/23 release (Protonix) Allergies Allergy/AdvReac Type Severity Reaction Status Date / Time No Known Allergies Allergy Verified 08/20/23 09:41 Worker's Comp Is this a Worker's Comp case?: No [facility] Disclaimer: The information contained in this section may have been updated after the patient was seen, as this information can be updated by other users. Medical History Acute bronchitis Acute viral syndrome Cervical cancer Closed head injury Degenerative disc disease Diverticulosis of colon Hypothyroidism Inflammatory bowel diseases (IBD) Influenza Pharyngitis Sinusitis UTI (urinary tract infection) Surgical History H/O total hysterectomy Family History Grandfather No problems noted. 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 current occupational exposures/hazards: No caffeine: Yes ROS Obtained: Yes All systems reviewed & no additional complaints except as documented and Yes Systems reviewed as appropriate & no additional complaints except as documented Constitutional Constitutional: Reports system reviewed and no additional complaints, except as documented, Reports as per HPI, Denies body ache, Denies chills and Denies fever(s) ENT Ears, Nose, Mouth, and Throat: Reports system reviewed and no additional complaints, except as documented and Reports as per HPI Cardiovascular Cardiovascular: Reports system reviewed and no additional complaints, except as documented and Reports as per HPI Respiratory Respiratory: Reports system reviewed and no additional complaints, except as documented and Reports as per HPI Gastrointestinal Gastrointestingal: Reports system reviewed and no additional complaints, except as documented, as per HPI, abdominal pain, bloating and nausea; Denies diarrhea, excessive flatus, hematemesis, loose stools or melena Physical Exam General General appearance: alert and in no apparent distress Respiratory Respiratory exam: Present normal lung sounds bilaterally; Absent respiratory distress or wheezes Cardiovascular Cardiovascular exam: Present regular rate and normal rhythm Abdominal Exam Abdominal exam: Present tenderness (reports tenderness with palpation in epigastric region) Neurological Exam Neurological exam: Present alert, oriented X3 and normal gait Medical Decision Making Konstantin Inquiry Pt receiving controlled substance: No Konstantin was queried for this patient: No Vital Signs: 09/15/23 14:50 Temperature 97.7 F Temperature Source Oral Pulse Rate [Left Brachial] 95 H Respiratory Rate 19 Blood Pressure [Left Arm] 162/114 H Blood Pressure Mean [Left Arm] 130 Blood Pressure Source [Left Arm] Automatic Cuff Blood Pressure Position [Left Arm] Sitting 02 Sat by Pulse Oximetry 95 Oxygen Delivery Method Room Air Lab Data 09/15/23 16:40 09/15/23 16:40 Medical Decision Narrative: Patient appeared uncomfortable moving around in chair reports severe pain in her epigastric area that started about 2 weeks ago but today has become severe Spoke with patient and due to patient feeling like her abdomen is swollen and bloated and pain will transfer to the ED for further work up and evaluation awaiting ED call back ED called back awaiting room in ED
--- NOTE | 2023-09-15 16:30 | PC.NURSE ---
room available in ED now, pt brought over by wheelchair from [facility].
--- NOTE | 2023-09-15 16:32 | ED_ITS ---
<Statement entered by Tristan Kuo MD - 09/15/23 21:45> I was consulted by the DENISE, and we discussed the complexity of the problems being addressed. I approved the treatment and management plan for this patient's care in the emergency department, thus performing a substantive portion of the medical decision making. Tristan Kuo MD Discharge Plan Disposition Patient Disposition: Home, Self-Care Condition: Good Prescriptions Prescriptions: New pantoprazole [Protonix] 40 mg tablet,delayed release (DR/EC) 40 mg PO DAILY Qty: 30 0RF No Action naproxen sodium [Aleve] 220 mg tablet 220 mg PO Q8H methenamine hippurate 1 gram tablet 1 g PO DAILY Lacto no.91-[id number]-FCG-larch 25B cell-25B cell-50 mg capsule 1 cap PO DAILY methocarbamol 1,000 mg tablet 1,000 mg PO BID PRN (Reason: muscle spasm) Qty: 60 2RF Rx Instructions: Keep 8 hours between doses of methocarbamol and cyclobenzaprine cyclobenzaprine 5 mg tablet 5 mg PO HS PRN (Reason: muscle spasm) Qty: 30 1RF ascorbic acid (vitamin C) [Vitamin C] 500 mg tablet 500 mg PO DAILY Qty: 90 1RF aspirin 81 mg tablet,delayed release (DR/EC) 81 mg PO DAILY Qty: 90 1RF cholecalciferol (vitamin D3) 125 mcg (5,000 unit) capsule 125 mcg PO DAILY Qty: 90 1RF cyanocobalamin (vitamin B-12) 2,500 mcg tablet 2,500 mcg PO DAILY Qty: 90 1RF fexofenadine [Milady Allergy] 180 mg tablet 180 mg PO DAILY Qty: 30 1RF krill oil 500 mg capsule 500 mg PO DAILY Qty: 90 1RF montelukast 10 mg tablet 10 mg PO HS Qty: 90 1RF venlafaxine 75 mg capsule,extended release 24hr 75 mg PO DAILY Qty: 90 0RF trazodone 50 mg tablet 25 mg PO DAILY Qty: 90 0RF levothyroxine 137 mcg capsule 137 mcg PO DAILY Qty: 30 1RF Referrals Follow up/Referrals: Vitor Hargrove MD [Staff Physician] - See instructions Gino Mckenzie DO [Primary Care Provider] - See instructions Activity Restrictions/Add. Instructions Additional Instructions/Restrictions: I have referred you to general surgery for upper endoscopy. Follow-up with your PCP closely. If new or worsening symptoms please not hesitate to return the emergency department. Please take your medications as prescribed. Clinical Impressions Clinical Impression: Abdominal pain, epigastric Instructions Patient Instructions: DI for Acute Abdominal Pain Discharge ED Provider: Tristan Kuo General Adult HPI <CHICHO Huerta - Last Filed: 09/15/23 21:43> General Chief complaint: Abdominal Pain Stated complaint: abd pain Time Seen by Provider: 09/15/23 15:17 Mode of Arrival: Ambulatory Source of Information: Patient Limitations: No Limitations Description of Symptoms (Recalled from ER Triage Doc. by RN): PATIENT C/O EPIGASTRIC PAIN AND NAUSEA THAT STARTED 2 WEEKS AGO AND HAS GOTTEN WORSE. SHE STATES SHE HAS BEEN TAKING MUSCLE RELAXERS AND NSAIDS BUT THEY ARE NOT HELPING History of Present Illness HPI narrative: Patient presents for evaluation of epigastric abdominal pain. Patient reports that the pain started approximately 2 weeks ago however it has intensified over the last 24 hours. Patient states that she is not intolerant of oral intake however oral intake makes it worse and lying flat makes it worse. Patient denies trauma NSAID use cardia chest pain shortness of breath fever chills hemoptysis hematochezia melena hematemesis diarrhea Related Data Home Medications Medication Instructions Recorded Confirmed Lactobacillus 25 billion 1 cap PO DAILY 07/10/23 08/20/23 cell-Bifido 25 billion reos-LML-gkkob capsule methenamine hippurate 1 gram tablet 1 g PO DAILY 07/10/23 08/20/23 naproxen sodium 220 mg tablet 220 mg PO Q8H 07/10/23 08/20/23 (Aleve) Previous Rx's Medication Instructions Recorded ascorbic acid (vitamin C) 500 mg 500 mg PO DAILY #90 tabs 08/20/23 tablet (Vitamin C) aspirin 81 mg tablet,delayed 81 mg PO DAILY heart health #90 08/20/23 release tabs cholecalciferol (vitamin D3) 125 125 mcg PO DAILY #90 caps 08/20/23 mcg (5,000 unit) capsule cyanocobalamin (vitamin B-12) 2,500 mcg PO DAILY #90 tabs 08/20/23 2,500 mcg tablet cyclobenzaprine 5 mg tablet 5 mg PO HS PRN muscle spasm #30 08/20/23 tabs fexofenadine 180 mg tablet 180 mg PO DAILY #30 tabs 08/20/23 (Milady Allergy) krill oil 500 mg capsule 500 mg PO DAILY #90 caps 08/20/23 levothyroxine 137 mcg capsule 137 mcg PO DAILY #30 caps 08/20/23 methocarbamol 1,000 mg tablet 1,000 mg PO BID PRN muscle spasm 08/20/23 #60 tabs montelukast 10 mg tablet 10 mg PO HS #90 tabs 08/20/23 trazodone 50 mg tablet 25 mg (1/2 x 50 mg) PO DAILY #90 08/20/23 tabs venlafaxine 75 mg capsule,extended 75 mg PO DAILY #90 caps 08/20/23 release 24 hr pantoprazole 40 mg tablet,delayed 40 mg PO DAILY #30 tabs 09/15/23 release (Protonix) Allergies Allergy/AdvReac Type Severity Reaction Status Date / Time No Known Allergies Allergy Verified 08/20/23 09:41 PFS <CHICHO Huerta - Last Filed: 09/15/23 21:43> [facility] Disclaimer: The information contained in this section may have been updated after the patient was seen, as this information can be updated by other users. Medical History Acute bronchitis Acute viral syndrome Cervical cancer Closed head injury Degenerative disc disease Diverticulosis of colon Hypothyroidism Inflammatory bowel diseases (IBD) Influenza Pharyngitis Sinusitis UTI (urinary tract infection) Surgical History H/O total hysterectomy Family History Grandfather No problems noted. 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 current occupational exposures/hazards: No caffeine: Yes <CHICHO Huerta - Last Filed: 09/15/23 21:43> ROS Obtained: Yes Systems reviewed as appropriate & no additional complaints except as documented Physical Exam <CHICHO Huerta - Last Filed: 09/15/23 21:43> General General appearance: alert and in no apparent distress Chest Chest inspection: Present normal inspection and symmetric chest wall rise; Absent tenderness Respiratory Respiratory exam: Present normal lung sounds bilaterally; Absent respiratory distress, wheezes or accessory muscle use Cardiovascular Cardiovascular exam: Present regular rate, normal rhythm, normal heart sounds, +S1 and +S2 Abdominal Exam Abdominal exam: Present soft, tenderness (Tender to palpation in the epigastrium with no rebound no guarding rigidity) and normal bowel sounds; Absent distention, guarding or rebound Back Exam Back exam: Present normal inspection and full ROM; Absent tenderness Neurological Exam Neurological exam: Present alert, oriented X3 and CN II-XII intact Medical Decision Making <CHICHO Huerta - Last Filed: 09/15/23 21:43> Medical Records Medical records reviewed: Yes I reviewed the patient's medical records. Konstantin Inquiry Pt receiving controlled substance: No Vital Signs: 09/15/23 14:50 09/15/23 16:30 09/15/23 16:31 Temperature 97.7 F 98.5 F Temperature Source Oral Oral Pulse Rate 84 Pulse Rate [Left Brachial] 95 H 85 Respiratory Rate 19 18 Blood Pressure 144/98 H Blood Pressure [Left Arm] 162/114 H 144/98 H Blood Pressure Mean [Left Arm] 130 113 Blood Pressure Source [Left Arm] Automatic Cuff Automatic Cuff Blood Pressure Position [Left Arm] Sitting Sitting 02 Sat by Pulse Oximetry 95 97 95 Oxygen Delivery Method Room Air Room Air Room Air 09/15/23 17:01 09/15/23 17:34 09/15/23 18:00 Temperature Temperature Source Pulse Rate 88 80 69 Pulse Rate [Left Brachial] Respiratory Rate Blood Pressure 156/102 H 143/86 H 160/87 H Blood Pressure [Left Arm] Blood Pressure Mean [Left Arm] Blood Pressure Source [Left Arm] Blood Pressure Position [Left Arm] 02 Sat by Pulse Oximetry 96 94 L 94 L Oxygen Delivery Method Room Air Room Air Room Air 09/15/23 18:17 09/15/23 18:31 09/15/23 19:36 Temperature 98.2 F Temperature Source Oral Pulse Rate 78 71 84 Pulse Rate [Left Brachial] Respiratory Rate 18 Blood Pressure 159/86 H 142/80 H 148/89 H Blood Pressure [Left Arm] Blood Pressure Mean [Left Arm] Blood Pressure Source [Left Arm] Blood Pressure Position [Left Arm] 02 Sat by Pulse Oximetry 95 96 Oxygen Delivery Method Room Air Room Air Room Air Lab Data Lab results reviewed: Yes I reviewed the patient's lab results. Lab Results 09/15/23 16:40: WBC 13.6 H, RBC 4.77, Hgb 15.4, Hct 43.3, MCV 90.8, MCH 32.3 H, MCHC 35.5 H, RDW 13.7, Plt Count 289, MPV 8.0, Neut % (Auto) 69.8, Lymph % (Auto) 22.4, Hopkins % (Auto) 4.9, Eos % (Auto) 2.2, Baso % (Auto) 0.8, Neut # (Auto) 9.5 H, Lymph # (Auto) 3.0, Hopkins # (Auto) 0.7, Eos # (Auto) 0.3, Baso # (Auto) 0.1, PT 10.8, INR 1.00, Sodium 139, Potassium 3.7, Chloride 100, Carbon Dioxide 30, Anion Gap 12.7, BUN 7, Creatinine 0.70, Estimated Creat Clear 77, Estimated GFR 84, Est GFR ( Amer) 102, Glucose 95, Calcium 11.1 H, Magnesium 1.9, Total Bilirubin 0.5, AST 33, ALT 33, Alkaline Phosphatase 79, Troponin I < 0.01, Total Protein 8.1, Albumin 4.5, Globulin 3.6 H, Albumin/Globulin Ratio 1.3, Lipase 93 09/15/23 16:40 09/15/23 16:40 Orders (Tests/Meds): ED MEDICATIONS Discontinued Medications Generic Name Dose Route Start Last Admin Trade Name Freq PRN Reason Stop Dose Admin Acetaminophen 1,000 mg 09/15/23 16:32 09/15/23 16:59 Acetaminophen 1,000mg/100ml Vial IV 09/15/23 16:33 1,000 mg ONCE ONE Administration Belladonna Alkaloids 60 ml 09/15/23 16:32 09/15/23 16:59 Belladonna Alkaloids 60 Ml Ml PO 09/15/23 16:33 60 ml ONCE ONE Administration Lactated Ringer's 1,000 mls @ 999 mls/hr 09/15/23 16:32 09/15/23 16:59 Lactated Ringer's 1000 Ml Bag IV 09/15/23 17:32 999 mls/hr .Q1H1M ONE Administration Ondansetron HCl 4 mg 09/15/23 16:37 09/15/23 16:59 Ondansetron 4mg Odt SL 09/15/23 16:38 4 mg ONCE ONE Administration ORDERS Category Date Time Status CT abdomen pelvis wo con Stat Cat Scan 09/15/23 16:36 Completed CBC w/Auto Diff [Complete Blood Count Auto Diff] Stat Lab 09/15/23 16:40 Completed CMP [Comprehensive Metabolic Panel] Stat Lab 09/15/23 16:40 Completed INR [Prothrombin Time INR] Stat Lab 09/15/23 16:40 Completed Lipase Stat Lab 09/15/23 16:40 Completed Magnesium Stat Lab 09/15/23 16:40 Completed Trop I [Troponin I] Stat Lab 09/15/23 16:40 Completed Medical Decision Narrative: In summary patient is a 63-year-old female who presents to the emergency department for evaluation of gastric abdominal pain. Patient is hemodynamically stable upon arrival, afebrile. Physical exam is remarkable for tenderness to palpation in the epigastrium without rebound guarding or rigidity. Bowel sounds are normal active.. Differential diagnosis includes gastritis versus gastric ulcer versus esophagitis versus acute pancreatitis etc. Initial workup will be conducted with hematologic labs CT scan of the abdomen pelvis. Initial interventions include fluid bolus Tylenol GI cocktail for now. Initial workup reviewed by me and her hematologic labs are nonactionable and her imaging is remarkable for Upon repeat evaluation patient had complete resolution of her symptoms after initial intervention. Given this patient is appropriate for discharge with referral to general surgery for EGD and close follow-up with her PCP. <Tristan Kuo MD - Last Filed: 09/15/23 21:45> Vital Signs: 09/15/23 14:50 09/15/23 16:30 09/15/23 16:31 Temperature 97.7 F 98.5 F Temperature Source Oral Oral Pulse Rate 84 Pulse Rate [Left Brachial] 95 H 85 Respiratory Rate 19 18 Blood Pressure 144/98 H Blood Pressure [Left Arm] 162/114 H 144/98 H Blood Pressure Mean [Left Arm] 130 113 Blood Pressure Source [Left Arm] Automatic Cuff Automatic Cuff Blood Pressure Position [Left Arm] Sitting Sitting 02 Sat by Pulse Oximetry 95 97 95 Oxygen Delivery Method Room Air Room Air Room Air 09/15/23 17:01 09/15/23 17:34 09/15/23 18:00 Temperature Temperature Source Pulse Rate 88 80 69 Pulse Rate [Left Brachial] Respiratory Rate Blood Pressure 156/102 H 143/86 H 160/87 H Blood Pressure [Left Arm] Blood Pressure Mean [Left Arm] Blood Pressure Source [Left Arm] Blood Pressure Position [Left Arm] 02 Sat by Pulse Oximetry 96 94 L 94 L Oxygen Delivery Method Room Air Room Air Room Air 09/15/23 18:17 09/15/23 18:31 09/15/23 19:36 Temperature 98.2 F Temperature Source Oral Pulse Rate 78 71 84 Pulse Rate [Left Brachial] Respiratory Rate 18 Blood Pressure 159/86 H 142/80 H 148/89 H Blood Pressure [Left Arm] Blood Pressure Mean [Left Arm] Blood Pressure Source [Left Arm] Blood Pressure Position [Left Arm] 02 Sat by Pulse Oximetry 95 96 Oxygen Delivery Method Room Air Room Air Room Air Lab Data Lab Results 09/15/23 16:40: WBC 13.6 H, RBC 4.77, Hgb 15.4, Hct 43.3, MCV 90.8, MCH 32.3 H, MCHC 35.5 H, RDW 13.7, Plt Count 289, MPV 8.0, Neut % (Auto) 69.8, Lymph % (Auto) 22.4, Hopkins % (Auto) 4.9, Eos % (Auto) 2.2, Baso % (Auto) 0.8, Neut # (Auto) 9.5 H, Lymph # (Auto) 3.0, Hopkins # (Auto) 0.7, Eos # (Auto) 0.3, Baso # (Auto) 0.1, PT 10.8, INR 1.00, Sodium 139, Potassium 3.7, Chloride 100, Carbon Dioxide 30, Anion Gap 12.7, BUN 7, Creatinine 0.70, Estimated Creat Clear 77, Estimated GFR 84, Est GFR ( Amer) 102, Glucose 95, Calcium 11.1 H, Magnesium 1.9, Total Bilirubin 0.5, AST 33, ALT 33, Alkaline Phosphatase 79, Troponin I < 0.01, Total Protein 8.1, Albumin 4.5, Globulin 3.6 H, Albumin/Globulin Ratio 1.3, Lipase 93 Orders (Tests/Meds): ED MEDICATIONS Discontinued Medications Generic Name Dose Route Start Last Admin Trade Name Nannette PRN Reason Stop Dose Admin Acetaminophen 1,000 mg 09/15/23 16:32 09/15/23 16:59 Acetaminophen 1,000mg/100ml Vial IV 09/15/23 16:33 1,000 mg ONCE ONE Administration Belladonna Alkaloids 60 ml 09/15/23 16:32 09/15/23 16:59 Belladonna Alkaloids 60 Ml Ml PO 09/15/23 16:33 60 ml ONCE ONE Administration Lactated Ringer's 1,000 mls @ 999 mls/hr 09/15/23 16:32 09/15/23 16:59 Lactated Ringer's 1000 Ml Bag IV 09/15/23 17:32 999 mls/hr .Q1H1M ONE Administration Ondansetron HCl 4 mg 09/15/23 16:37 09/15/23 16:59 Ondansetron 4mg Odt SL 09/15/23 16:38 4 mg ONCE ONE Administration ORDERS Category Date Time Status CT abdomen pelvis wo con Stat Cat Scan 09/15/23 16:36 Completed CBC w/Auto Diff [Complete Blood Count Auto Diff] Stat Lab 09/15/23 16:40 Completed CMP [Comprehensive Metabolic Panel] Stat Lab 09/15/23 16:40 Completed INR [Prothrombin Time INR] Stat Lab 09/15/23 16:40 Completed Lipase Stat Lab 09/15/23 16:40 Completed Magnesium Stat Lab 09/15/23 16:40 Completed Trop I [Troponin I] Stat Lab 09/15/23 16:40 Completed ECG Data Tracing #1: Independently interpreted by me, rate is 82, rhythm is regular, axis is borderline leftward deviated, no ST elevation in anatomical contiguous leads, QTc 411. Medical Decision Narrative: In summary patient is a 63-year-old female who presents to the emergency department for evaluation of gastric abdominal pain. Patient is hemodynamically stable upon arrival, afebrile. Physical exam is remarkable for tenderness to palpation in the epigastrium without rebound guarding or rigidity. Bowel sounds are normal active.. Differential diagnosis includes gastritis versus gastric ulcer versus esophagitis versus acute pancreatitis etc. Initial workup will be conducted with hematologic labs CT scan of the abdomen pelvis. Initial interventions include fluid bolus Tylenol GI cocktail for now. Initial workup reviewed by me and her hematologic labs are nonactionable and her imaging is remarkable for distal caudal gastric mural thickening suggestive of gastritis or other inflammatory infiltrative process with mild adjacent perigastric fat stranding. Upon repeat evaluation patient had complete resolution of her symptoms after initial intervention. Given this patient is appropriate for discharge with referral to general surgery for EGD and close follow-up with her PCP. Critical Care <CHICHO Huerta - Last Filed: 09/15/23 21:43> Critical Care Time Critical Care Time: No
--- NOTE | 2023-09-15 16:36 | CT_ITS ---
PROCEDURE INFORMATION: Exam: CT Abdomen And Pelvis Without Contrast Exam date and time: 09/15/2023 4:52 PM Age: 63 years old Clinical indication: Abdominal pain; Epigastric; Additional info: Acute epigastric abd pain TECHNIQUE: Imaging protocol: Computed tomography of the abdomen and pelvis without contrast. Radiation optimization: All CT scans at this facility use at least one of these dose optimization techniques: automated exposure control; mA and/or kV adjustment per patient size (includes targeted exams where dose is matched to clinical indication); or iterative reconstruction. COMPARISON: CT ABDOMEN PELVIS W CON 11/19/2022 1:31 PM FINDINGS: Lungs: There is a pulmonary parenchymal calcification in the right lower lobe consistent with remote granulomatous organism exposure. Pleural spaces: There are no pleural effusions. Heart: The visualized portions of the heart are unremarkable. There is no evidence of pericardial fluid collections. Liver: There is diffuse decrease in hepatic/liver parenchymal density consistent with fatty infiltration. There is mild enlargement of the liver. The liver measures 19.3 cm in CC dimension. The liver demonstrates a punctate calcification consistent with remote granulomatous organism exposure. Gallbladder and bile ducts: The gallbladder is normal. Pancreas: Noncontrast images of the pancreas are within range of normal. Spleen: The spleen demonstrates punctate calcifications, consistent with remote granulomatous organism exposure. Adrenal glands: The adrenal glands are normal. Kidneys and ureters: Noncontrast images of the kidneys are within range of normal. Stomach and bowel: Mild distal/caudal gastric mural thickening suggesting exclude gastritis or other inflammatory or infiltrative process. There is mild perigastric fat stranding in vascularity involving the in caudal aspect of the distal stomach, best seen on series 1002, images 50 to 59, as well as series 3 images 46 to 53. This may reflect piotr gastric inflammation/edema or infiltration. There are a few small adjacent lymph nodes, not of pathologic significance by size criteria. One of the larger lymph nodes measures approximately 9 mm in short axis. Correlate clinically. The duodenum is unremarkable. Lack of gastrointestinal contrast limits evaluation of bowel. Moderate diverticulosis is present in the distal colon. There is no evidence of colitis/diverticulitis. The colon is normal. Unopacified loops of small bowel within range of normal. There is lipomatosis hypertrophy of the ileocecal valve. Appendix: A normal appendix is identified. Intraperitoneal space: No evidence of intraperitoneal free air. No significant free fluid. Vasculature: The aorta and iliac arteries demonstrate mild atherosclerotic calcification Lymph nodes: There are scattered shotty retroperitoneal lymph nodes, not of pathologic significance by CT size criteria. There are a few scattered mesenteric lymph nodes, one of which is mildly prominent measuring 12 mm in short axis seen on series 1001, image 28. Remaining lymph nodes are not pathologic significance. Urinary bladder: The bladder is normal. The bladder is normal. Reproductive: The uterus is either atrophic or absent. No adnexal masses. No adnexal cysts or masses are identified. Bones/joints: There are mild degenerative changes of the hip joints. There are mild degenerative changes of the symphyseal pubic joint. There are mild degenerative changes of the sacroiliac joints. The thoracolumbar spine demonstrates mild degenerative changes at multiple levels. There is no evidence of acute fracture. Soft tissues: There is a tiny fat-containing umbilical hernia. No significant soft tissue edema. Other findings: Evaluation is limited by the lack of intravenous contrast. IMPRESSION: 1. Study quality mildly limited due to lack of intravenous and gastrointestinal contrast. 2. Mild distal/caudal gastric mural thickening suggesting gastritis or other inflammatory or infiltrative process, with mild adjacent perigastric fat stranding and vascularity involving the caudal aspect of the distal stomach. Recommend additional evaluation. Cannot exclude neoplastic process. 3. Fatty hepatic infiltration. 4. Mild hepatomegaly.
--- NOTE | 2023-09-15 16:36 | PC.NURSE ---
Ike Madrigal PA-C at bedside
--- NOTE | 2023-09-15 16:42 | ECG_ITS ---
APPROVED REPORT Exam: Resting ECG HR:82 bpm ECG Measurements Heart Rate 82 AXES AZ 144 P 41 QRSd 85 QRS -19 QT 372 T 48 QTc 411 Conclusion SINUS RHYTHM LOW QRS VOLTAGE IN PRECORDIAL LEADS [QRS DEFLECTION < 1.0 mV IN CHEST LEADS] POSSIBLE ANTERIOR MYOCARDIAL INFARCTION , PROBABLY OLD [30 ms Q WAVE IN V3/V4, OR R < 0.2 mV IN V4] BORDERLINE ECG Electronically signed by : HEIDY CANDELARIA, 09/20/2023 04:34:59
[2023-09-15 16:55] LABS: Basophils # 0.1 K/mm3 (0-0.2); Basophils % 0.8 % (0.1-2.0); Eosinophils # 0.3 K/mm3 (0.0-0.4); Eosinophils % 2.2 % (0.1-12.0); Hematocrit 43.3 % (37.0-47.0); Hemoglobin 15.4 g/dL (12.2-16.2); Lymphocytes % 22.4 % (10-50); Mean Corpuscular HGB Conc 35.5 g/dL (31.8-35.4); Mean Corpuscular Hemoglobin 32.3 pg (27.0-31.2); Mean Corpuscular Volume 90.8 fl (81-99); Monocytes # 0.7 K/mm3 (0.1-1.0); Monocytes % 4.9 % (1.7-9.3); Neutrophils # 9.5 K/mm3 (1.8-7.8); Neutrophils % 69.8 % (37.0-80.0); Platelet Count 289 K/mm3 (142-424); Red Blood Count 4.77 M/mm3 (4.20-5.40); Red Cell Distribution Width 13.7 % (11.5-17.5); White Blood Count 13.6 K/mm3 (4.8-10.8)
[2023-09-15 16:58] LABS: Chloride 100 mmol/L (98-107)
[2023-09-15 16:59] LABS: Potassium 3.7 mmoL/L (3.5-5.1); Sodium 139 mmol/L (136-145)
[2023-09-15] MEDS: ACETAMINOPHEN 1,000MG/100ML VIAL 1000 MG IV (16:59)
[2023-09-15] MEDS: BELLADONNA ALKALOIDS 60 ML ML PO (16:59)
[2023-09-15] MEDS: LACTATED RINGERS 1000ML 1,000 ML 999 ML IV (16:59)
[2023-09-15] MEDS: ONDANSETRON 4MG ODT 4 MG SL (16:59)
[2023-09-15 17:01] LABS: Alanine Aminotransferase 33 U/L (12-78); Alkaline Phosphatase 79 U/L (38-126); Aspartate Amino Transferase 33 U/L (14-36); Bilirubin,Total 0.5 mg/dl (0.2-1.3); Blood Urea Nitrogen 7 mg/dl (7-17); Creatinine Clearance Estimated 77 mL/min (50-200); Estimated Glomerular Filt Rate 84 ml/min (>60); GFR (African American) 102 ML/MIN (>60)
[2023-09-15 17:02] LABS: Albumin Level 4.5 g/dl (3.5-5.0); Albumin/Globulin Ratio 1.3 (1.1-1.8); Anion Gap 12.7 mEq/L (5-15); Calcium 11.1 mg/dl (8.4-10.2); Carbon Dioxide 30 mmol/L (22.0-30.0); Globulin 3.6 g/dL (1.3-3.2); Glucose 95 mg/dl (74-100); Lipase 93 U/L (23-300); Magnesium 1.9 mg/dl (1.6-2.3); Total Protein,Serum 8.1 g/dl (6.3-8.2)
[2023-09-15 17:13] LABS: Prothrombin Time 10.8 seconds (10.1-12.5)
[2023-09-15 17:17] LABS: Troponin I < 0.01 ng/ml (0.00-0.034)
--- NOTE | 2023-09-15 18:27 | PC.NURSE ---
Called radiology to have them check on CT read that is still pending
== END 2023-09-15 19:36 | disposition home or self-care (01) ==
LOC: UTC 16:29 → ER 16:29
PROVIDERS: Physician Assistant; Emergency Provider Emergency Medicine; PCP Internal Medicine
DX: R10.13 Epigastric pain (principal); E03.9 Hypothyroidism, unspecified
CPT/HCPCS: 74176; 80053; 83690; 83735; 84484; 85025; 85610; 93005; 96361; 96374; 99284; J0131

== ENCOUNTER 2023-09-26 11:26 | Day surgery (SDC) | payer MEDICARE, SELFPAY ==
[2023-09-24 11:04] VITALS: BMI 30.7
[2023-09-26 11:49] VITALS: BP 127/83; PULSE 68; RESP 18; TEMP 36.2; O2SAT 98
[2023-09-26] MEDS: LACTATED RINGERS 1000ML 1,000 ML 25 ML IV (11:57)
--- NOTE | 2023-09-26 13:03 | [facility].SCOPE ---
Procedure: Date: 09/26/23 Patient Date of :: 1960 Procedure Performed:: Esophagogastroduodenoscopy with biopsies Indications:: Patient is a 63-year-old female who is referred by the emergency department for upper endoscopy. She presented to the emergency department on 09/15/2023 with complaints of upper abdominal pain. She had tenderness in the epigastrium. She underwent CT scan of the abdomen and pelvis without any contrast whatsoever. Imaging revealed distal called acute gastric mural thickening suggestive of gastritis with perigastric fat stranding. She had been started on pantoprazole and has had some ongoing symptoms. It is not related to eating in any way. She had been concerned that she had issues with her gallbladder as she has a family history. She is on 81 mg aspirin, cyclobenzaprine, methocarbamol, Naprosyn, trazodone, and several other medications. Since she has ongoing epigastric pain and tenderness with some suspicion of upper GI etiology on imaging plan to proceed with EGD. If this is unremarkable may plan for gallbladder workup. . Performing Provider:: Vitor Hargrove MD Referring Provider:: Gino Mckenzie MD Sedation:: MAC sedation Procedure:: Patient history was obtained and appropriate physical examination was performed. Patient's medications and allergies were reviewed. Informed consent was obtained after explaining the benefits, alternatives, and risks of the procedure including, but not limited to, bleeding, perforation, missed lesions, and adverse reaction to anesthesia medications. Patient was transported to endoscopy procedure room. Patient was connected to monitoring devices. Throughout the procedure the patient's blood pressure, pulse, and oxygen saturations were monitored continuously. Patient identification and planned procedure were verified by the staff. Patient was positioned in lateral decubitus position. Olympus endoscope was inserted via the oropharynx. Esophagus was cannulated. Overall esophagus appeared normal. Gastroesophageal junction was encountered at approximately 38 cm from the incisors. Stomach was cannulated and insufflated. There was some bile within the stomach. Retroflexion revealed no evidence of any appreciable hiatal hernia. There was a large, at least 3 cm, deep circular ulcer in the body of the stomach along the greater curvature. There is exudate and debris within the base which was irrigated out. Pylorus was traversed. Duodenum appeared unremarkable. Biopsy was obtained at the gastric antrum to evaluate for H. pylori. Limited biopsies were obtained at the periphery of the ulcer using cold biopsy forceps. Stomach was desufflated and the endoscope was withdrawn. . Findings:: Gastroesophageal junction at 38 cm Mild to moderate nonerosive gastropathy Large deep complex gastric ulcer greater curve body of stomach . Recommendations:: Will initiate proton pump inhibitors and Carafate. Recommend holding Naprosyn and aspirin at this time if possible. Close follow-up on the biopsies as this does have the potential for malignancy given its location and size. If negative plan for follow-up early interval repeat upper endoscopy. Complications:: None immediately apparent Estimated blood obtained (mL): 2 Colonoscopy Component Colonoscopy Component Was a colonoscopy performed during today's procedure?: No
--- NOTE | 2023-09-26 13:08 | P.PNANES_ITS ---
[facility] Disclaimer: The information contained in this section may have been updated after the patient was seen, as this information can be updated by other users. Medical History Cervical cancer Hypothyroidism Acute viral syndrome Pharyngitis Influenza Closed head injury Acute bronchitis Sinusitis UTI (urinary tract infection) Inflammatory bowel diseases (IBD) Diverticulosis of colon Degenerative disc disease Surgical History H/O total hysterectomy Family History (Updated 09/26/23 @ 11:56 by Francisca Sneed RN) Grandfather No problems noted. 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 Anesthesia Checklist Patient Identification Patient Identification: Arm Band Structural Data Admitted From: Home Planned Operative Procedure/s: EGD Consent for Planned Operative Procedure(s) Verified: Yes Verified Documents: Surgical Consent and History and Physical NPO Status Verified Time NPO: 00:00 Additional verifications Anesthesia Reactions: No Airway Assessment Mallampati Score:: Class II C-Spine Mobility Assessed: Yes TMJ Mobility Assessed: Yes Dentition: Good Dentition Neurological Assessment Level of Consciousness: Awake, Alert and Appropriate Anesthesia Plan Anesthesia Risk discussed: Yes Anesthesia Plan: Verified ASA Class: II Anesthesia Type: MAC
[2023-09-26 13:09] VITALS: O2SAT 99
[2023-09-26 13:30] VITALS: BP 113/77; PULSE 70; RESP 14; TEMP 36.3; O2SAT 93
[2023-09-26 13:40] VITALS: BP 114/75; PULSE 75; RESP 16; O2SAT 95
[2023-09-26 13:49] VITALS: BP 109/74; PULSE 72; RESP 16; O2SAT 97
[2023-09-26 13:55] VITALS: BP 111/65; PULSE 66; RESP 16; O2SAT 97
== END 2023-09-26 13:55 | disposition home or self-care (01) ==
PROVIDERS: PCP Internal Medicine; Visit Provider Surgery
PROC: 0DJ08ZZ Inspection of Upper Intestinal Tract, Via Natural or Artificial Opening Endoscopic (ICD-10-PCS; CPT 43235; principal; 2023-09-26 12:30)
DX: R10.13 Epigastric pain (principal); K29.50 Unspecified chronic gastritis without bleeding; K25.9 Gastric ulcer, unspecified as acute or chronic, without hemorrhage or perforation
CPT/HCPCS: 43239; J7120

== ENCOUNTER 2023-12-19 06:32 | Day surgery (SDC) | payer MEDICARE, SELFPAY ==
[2023-12-18 09:30] VITALS: BMI 30.7
[2023-12-19] VITALS (7 sets, daily range): BP systolic 110–138; BP diastolic 68–93; PULSE 70–75; RESP 16–18; TEMP 36.3–36.8; O2SAT 95–97
--- NOTE | 2023-12-19 06:53 | HMH.SCOPE ---
Procedure: Date: 12/19/23 Patient Date of :: 1960 Procedure Performed:: EGD with biopsies . Indications:: Patient presents for followup upper endoscopy. She was seen in the emergency department on 09/15/2023 with upper abdominal pain in the epigastrium. CT scan without any contrast whatsoever revealed some gastric mural thickening. She was started on pantoprazole. I performed upper endoscopy on 09/26/2023 which revealed gastroesophageal junction at 38 cm, mild to moderate nonerosive gastropathy, but most notable was a large deep complex gastric ulcer in the greater curvature body of the stomach. Gastric biopsies revealed chronic inactive gastritis. Limited biopsies of the gastric ulcer revealed gastric mucosa with ulceration and fibrinopurulent ulcer debris. It was recommended patient discontinue aspirin and Naprosyn and any other ulcerogenic medication and add Carafate to her Protonix. She was seen in the office for follow-up on 10/28/2023. At that time patient had discontinued Naprosyn but stated she was not taking Carafate or Protonix. Therefore at that time I started her on high-dose proton pump inhibitors and sucralfate. She was seen in the emergency department the day after procedure with some nausea vomiting and diarrhea and diagnosed with pancreatitis. Plan was for follow-up upper endoscopy to assess for progress of healing of the ulcer. Although it was felt that it likely would not be fully healed at this time. . Performing Provider:: Vitor Hargrove MD Referring Provider:: Gino Mckenzie MD . Sedation:: MAC sedation . Procedure:: Patient history was obtained and appropriate physical examination was performed. Patient's medications and allergies were reviewed. Informed consent was obtained after explaining the benefits, alternatives, and risks of the procedure including, but not limited to, bleeding, perforation, missed lesions, and adverse reaction to anesthesia medications. Patient was transported to endoscopy procedure room. Patient was connected to monitoring devices. Throughout the procedure the patient's blood pressure, pulse, and oxygen saturations were monitored continuously. Patient identification and planned procedure were verified by the staff. Patient was positioned in lateral decubitus position. Olympus endoscope was inserted via the oropharynx. Esophagus was cannulated. Endoscope was advanced. Overall esophagus appeared unremarkable. Gastroesophageal junction was encountered at approximately 39 or 40 cm from the incisors. Stomach was cannulated and insufflated. Retroflexion was not performed. There was some moderate diffuse nonerosive gastropathy/gastritis. There were a few punctate erosions in the prepyloric location. Previous ulcer site was identified and found to be completely healed with indurated stellate scarring. Pylorus was traversed. There was some mild nonerosive duodenitis. Biopsy was obtained. Endoscope was withdrawn into the gastric lumen and antral biopsy was obtained. Several biopsies were obtained in the region of the healing gastric ulcer. Stomach was desufflated and the scope was withdrawn. . Findings:: Gastroesophageal junction approximately 39 cm from the incisors Diffuse gastropathy/gastritis Healed gastric ulcer characterized by indurated stellate scarring Mild duodenitis . Recommendations:: Follow-up on the biopsy results. Treat H. pylori if positive. Continue to refrain from ulcerogenic medications. For now I will continue with Carafate and proton pump inhibitors. May be able to discontinue Carafate. Complications:: None immediately apparent Estimated blood obtained (mL): 2 Colonoscopy Component Colonoscopy Component Was a colonoscopy performed during today's procedure?: No
--- NOTE | 2023-12-19 07:10 | EXP.ANES.CKL ---
[facility] Disclaimer: The information contained in this section may have been updated after the patient was seen, as this information can be updated by other users. Medical History Cervical cancer Hypothyroidism Acute viral syndrome Pharyngitis Influenza Closed head injury Acute bronchitis Sinusitis UTI (urinary tract infection) Inflammatory bowel diseases (IBD) Diverticulosis of colon Degenerative disc disease Surgical History History of esophagogastroduodenoscopy (EGD) History of colonoscopy H/O total hysterectomy Family History Grandfather No problems noted. 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 current occupational exposures/hazards: No caffeine: Yes [facility] Anesthesia Checklist Patient Identification Patient Identification: Arm Band, Family and Verbal (Name & ) Structural Data Admitted From: Home Planned Operative Procedure/s: EGD Consent for Planned Operative Procedure(s) Verified: Yes Verified Documents: Surgical Consent and History and Physical NPO Status Verified Time NPO: 23:00 Chart Verification Results Verified: CBC, BMP, PT, PTT, INR, ECG and Chest Xray Additional verifications Patient : No Anesthesia Reactions: No Cardiovascular Assessment Heart Sounds: S1 & S2 Pulse Rhythm: Irregular Peripheral Edema: No Airway Assessment Mallampati Score:: Class I C-Spine Mobility Assessed: Yes (FROM demonstrated) TMJ Mobility Assessed: Yes Dentition: Edentulous Neurological Assessment Level of Consciousness: Awake, Alert, Appropriate and Follows Commands Hx Seizures: No Numbness or tingling in extremities: No Anesthesia Plan Anesthesia Risk discussed: Yes Anesthesia Plan: Verified ASA Class: III Anesthesia Type: MAC
--- NOTE | 2023-12-19 07:37 | P.PNANES_ITS ---
[facility] Anesthesia Record Part I Anesthesia Record I Intake, IV Amount: 300 Hydration: Adequate Estimated blood loss (mL): 1 Urine output (mL): 0 Blood Products used (#): none Blood Pressure: 131/78 SaO2: 95 Pulse Rate: 72 Airway Patency: Patent Respiratory Rate: 16 Temperature: 98.2 F Patient is:: Awake (Talking) and Stable Stable to PACU at:: 07:39
== END 2023-12-19 08:04 | disposition home or self-care (01) ==
PROVIDERS: PCP Internal Medicine; Visit Provider Surgery
PROC: 0DJ08ZZ Inspection of Upper Intestinal Tract, Via Natural or Artificial Opening Endoscopic (ICD-10-PCS; CPT 43235; principal; 2023-12-19 07:30)
DX: K25.9 Gastric ulcer, unspecified as acute or chronic, without hemorrhage or perforation (principal); K29.50 Unspecified chronic gastritis without bleeding; K31.9 Disease of stomach and duodenum, unspecified; K29.80 Duodenitis without bleeding
CPT/HCPCS: 43239; J7120

== ENCOUNTER 2023-12-31 11:09 | Emergency (ER) | payer MEDICARE, SELFPAY ==
[2023-12-31 11:20] VITALS: BP 139/87; PULSE 96; RESP 20; TEMP 36.6; O2SAT 97; BMI 31.2
[2023-12-31 11:42] LABS: UTC Strep Screen (Rapid) Negative (Negative)
--- NOTE | 2023-12-31 11:46 | EXP.UTC ---
Discharge Plan Disposition Patient Disposition: Home, Self-Care Condition: Good Prescriptions Prescriptions: New azithromycin [Zithromax Z-Ferdinand] 250 mg tablet See Rx Instructions .ROUTE .COMPLEX 5 Days Qty: 6 0RF Rx Instructions: For 250 mg dose pack: take 500 mg today (day 1), then 250 mg for 4 days (days 2-5) benzonatate 100 mg capsule 100 mg PO TID PRN (Reason: cough) Qty: 30 0RF No Action methenamine hippurate 1 gram tablet 1 g PO DAILY sucralfate [Carafate] 1 gram tablet 1 g PO BID Qty: 60 0RF pantoprazole 20 mg tablet,delayed release (DR/EC) 40 mg PO BID 30 Days Qty: 120 1RF ondansetron 4 mg tablet,disintegrating 4 mg PO Q8H PRN (Reason: nausea and vomiting) 4 Days Qty: 12 0RF trazodone 50 mg tablet 25 mg PO DAILY Qty: 90 0RF levothyroxine 137 mcg capsule 137 mcg PO DAILY Qty: 30 1RF venlafaxine 75 mg capsule,extended release 24hr 75 mg PO DAILY Qty: 90 0RF Referrals Follow up/Referrals: Gino Mckenzie, [Primary Care Provider] - See instructions Activity Restrictions/Add. Instructions Additional Instructions/Restrictions: *Monitor Temp, Over the counter Motrin or Tylenol as directed/as needed Tylenol every 4 hours and Motrin every 6 hours (as long as your family doctor has told you that you can take it) for fever or pain. and straight to ER if unable to lower temp less than 101.0 after medication given *Warm salt water gargles may help to soothe the throat *Throat Lozenges? *Warm fluids like tea with honey may help to soothe the throat? *Sleep elevated *Humidifier/Vaporizer *Your throat swab was sent for culture. Those results are typically sent to your primary care. Be sure to follow up in 2-3 days with your family doctor/primary care physician if no improvement so they can review those result and treat if necessary. If you don?t have a primary care doctor, I recommend you get one but in the mean time, you will have to return to a walk in clinic Follow up IMMEDIATELY for new or worsening symptoms or no Noticeable improvement over the next 48-72 hours. 911 for difficulty breathing or swallowing You were tested for today for COVID19 your test result should be back in the next few hours, you may check your results on the [facility] My Health Portal Clinical Impressions Clinical Impression: Pharyngitis Instructions Patient Instructions: Sore Throat, DI for Nasal Congestion Print Language Print Language: Chinese Discharge ED Provider: Olya Doshi [facility] [place] HPI General Stated complaint: sore throat, past fever Mode of Arrival: Ambulatory Source of Information: Patient Limitations: No Limitations Time Seen by Provider: 12/31/23 11:46 Description of Symptoms (Recalled from Triage Doc. by RN): PATIENT C/O SORE THROAT AND HEAD CONGESTION SINCE YESTERDAY HEENT Symptoms (Recalled from RN notes): Yes Resp Symptoms (Recalled from RN notes): No Skin Symptoms (Recalled from RN notes): No MS Symptoms (Recalled from RN notes): No Functional Status (Recalled from RN notes): WNL History of Present Illness Provider Complaint: Patient state that she has been having sore throat, head congestion, body aches, and over all not feeling well since yesterday States today she was feeling worse so she came in to get checked Related Data Home Medications ?Medication ?Instructions ?Recorded ?Confirmed methenamine hippurate 1 gram tablet 1 g PO DAILY 07/10/23 12/19/23 Previous Rx's ?Medication ?Instructions ?Recorded levothyroxine 137 mcg capsule 137 mcg PO DAILY #30 caps 08/20/23 trazodone 50 mg tablet 25 mg (1/2 x 50 mg) PO DAILY #90 08/20/23 tabs ondansetron 4 mg disintegrating 4 mg PO Q8H PRN nausea and 10/28/23 tablet vomiting 4 days #12 tabs pantoprazole 20 mg tablet,delayed 40 mg (2 x 20 mg) PO BID 30 days 10/28/23 release #120 tabs sucralfate 1 gram tablet (Carafate) 1 g PO BID #60 tabs 10/28/23 venlafaxine 75 mg capsule,extended 75 mg PO DAILY #90 caps 12/02/23 release 24 hr azithromycin 250 mg tablet See Rx Instructions PO .COMPLEX 5 12/31/23 (Zithromax Z-Ferdinand) days #6 tabs benzonatate 100 mg capsule 100 mg PO TID PRN cough #30 caps 12/31/23 Allergies Allergy/AdvReac Type Severity Reaction Status Date / Time No Known Allergies Allergy Verified 12/19/23 06:44 Worker's Comp Is this a Worker's Comp case?: No [facility] Disclaimer: The information contained in this section may have been updated after the patient was seen, as this information can be updated by other users. Medical History (Updated 12/31/23 @ 15:01 by Olya Doshi APRN) Cervical cancer Hypothyroidism Acute viral syndrome Pharyngitis Influenza Closed head injury Acute bronchitis Sinusitis UTI (urinary tract infection) Inflammatory bowel diseases (IBD) Diverticulosis of colon Degenerative disc disease Surgical History History of esophagogastroduodenoscopy (EGD) History of colonoscopy H/O total hysterectomy Family History Grandfather No problems noted. 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 current occupational exposures/hazards: No caffeine: Yes ROS Obtained: Yes All systems reviewed & no additional complaints except as documented and Yes Systems reviewed as appropriate & no additional complaints except as documented Constitutional Constitutional: Reports system reviewed and no additional complaints, except as documented, Reports body ache, Reports chills, Reports fever(s) and Reports headache(s) ENT Ears, Nose, Mouth, and Throat: Reports system reviewed and no additional complaints, except as documented, Reports as per HPI, Reports headache(s), Reports nasal congestion, Reports sinus pressure and Reports sore throat Cardiovascular Cardiovascular: Reports system reviewed and no additional complaints, except as documented and Reports as per HPI Respiratory Respiratory: Reports system reviewed and no additional complaints, except as documented and Reports as per HPI Gastrointestinal Gastrointestingal: Reports system reviewed and no additional complaints, except as documented and as per HPI Genitourinary Female Genitourinary: Reports system reviewed and no additional complaints, except as documented and Reports as per HPI Neurologic Neurologic: Reports headache(s) Physical Exam General General appearance: alert and in no apparent distress ENT ENT exam: Present mucous membranes moist Expanded ENT Exam Nose exam: Present sinus tenderness Throat exam: Present other (Pharyngeal erythema noted with PND) Respiratory Respiratory exam: Present normal lung sounds bilaterally; Absent respiratory distress or wheezes Cardiovascular Cardiovascular exam: Present regular rate, normal rhythm and normal heart sounds Neurological Exam Neurological exam: Present alert, oriented X3 and normal gait Medical Decision Making Konstantin Inquiry Pt receiving controlled substance: No Konstantin was queried for this patient: No Vital Signs: 12/31/23 11:20 Temperature 97.8 F Temperature Source Oral Pulse Rate [Left Brachial] 96 H Respiratory Rate 20 Blood Pressure [Left Arm] 139/87 Blood Pressure Mean [Left Arm] 104 Blood Pressure Source [Left Arm] Automatic Cuff Blood Pressure Position [Left Arm] Sitting 02 Sat by Pulse Oximetry 97 Oxygen Delivery Method Room Air Lab Data Lab results reviewed: Yes I reviewed the patient's lab results. Lab Results 12/31/23 11:36: Strep Scn Rapid Clinic Negative Orders (Tests/Meds): ORDERS Category Date Time Status Covid-19 Nasal PCR ([facility]) Routine Lab 12/31/23 11:30 Received Strep Screen Confirmation Stat Micro 12/31/23 11:36 Received
[2023-12-31 11:50] LABS: Coronavirus 19, PCR Not Detected (NotDetected); Influenza A, PCR Not Detected (NotDetected); Influenza B, PCR Not Detected (NotDetected)
[2023-12-31 12:00] VITALS: BP 139/87; PULSE 96; RESP 20; TEMP 36.6; O2SAT 97
== END 2023-12-31 12:03 | disposition home or self-care (01) ==
PROVIDERS: Emergency Provider Nurse Practitioner; PCP Internal Medicine
DX: J02.9 Acute pharyngitis, unspecified (principal); R50.9 Fever, unspecified; R09.81 Nasal congestion
CPT/HCPCS: 87636; 87880; 99212; 99214; G0463

== ENCOUNTER 2024-03-09 09:30 | Outpatient (CLI) | payer MEDICARE, SELFPAY ==
[2024-03-09 14:32] LABS: Basophils # 0.1 K/mm3 (0-0.2); Basophils % 0.8 % (0.1-2.0); Eosinophils # 0.2 K/mm3 (0.0-0.4); Eosinophils % 2.3 % (0.1-12.0); Hematocrit 43.8 % (37.0-47.0); Hemoglobin 14.8 g/dL (12.2-16.2); Lymphocytes # 2.1 K/mm3 (0.7-4.5); Lymphocytes % 31.3 % (10-50); Mean Corpuscular HGB Conc 33.7 g/dL (31.8-35.4); Mean Corpuscular Hemoglobin 30.9 pg (27.0-31.2); Mean Corpuscular Volume 91.7 fl (81-99); Mean Platelet Volume 9.5 fl (7.4-10.4); Monocytes # 0.5 K/mm3 (0.1-1.0); Monocytes % 7.6 % (1.7-9.3); Neutrophils # 3.9 K/mm3 (1.8-7.8); Platelet Count 269 K/mm3 (142-424); Red Blood Count 4.78 M/mm3 (4.20-5.40); Red Cell Distribution Width 13.4 % (11.5-17.5); White Blood Count 6.8 K/mm3 (4.8-10.8)
[2024-03-09 14:46] LABS: Alanine Aminotransferase 31 U/L (12-78); Albumin Level 4.4 g/dl (3.5-5.0); Albumin/Globulin Ratio 1.8 (1.1-1.8); Alkaline Phosphatase 66 U/L (38-126); Anion Gap 12.2 mEq/L (5-15); Aspartate Amino Transferase 28 U/L (14-36); Bilirubin,Total 0.6 mg/dl (0.2-1.3); Blood Urea Nitrogen 11 mg/dl (7-17); Calcium 9.1 mg/dl (8.4-10.2); Carbon Dioxide 24 mmol/L (22.0-30.0); Chloride 105 mmol/L (98-107); Chol/HDL Ratio 3.2 (1-3.5); Cholesterol 190 mg/dl (140-200); Estimated Glomerular Filt Rate 100 ml/min (>60); GFR (African American) 121 ML/MIN (>60); Globulin 2.5 g/dL (1.3-3.2); Glucose 101 mg/dl (74-100); HDL Cholesterol 60 mg/dl (40-60); Potassium 4.2 mmoL/L (3.5-5.1); Sodium 137 mmol/L (136-145); Total Protein,Serum 6.9 g/dl (6.3-8.2); Triglycerides 199 mg/dl (30-150); VLDL Cholesterol 40 mg/dL (0-40)
[2024-03-09 14:59] LABS: Direct LDL Cholesterol 108.59 mg/dL (100-129)
[2024-03-09 15:01] LABS: 25-OH Vitamin D, Total 87.5 ng/mL (30-100)
[2024-03-09 15:15] LABS: HIV (1&2) Antibody Rapid NONREACTIVE (NONREACTIVE)
[2024-03-09 15:34] LABS: Thyroid Stimulating Hormone 0.03 uIU/mL (0.465-4.68)
[2024-03-09 15:53] LABS: Vitamin B12 993 pg/mL (239-931)
[2024-03-10 09:47] LABS: HCV Ab Non Reactive (Non Reactive)
[2024-03-10 14:31] LABS: Triiodothyronine (T3) Free 3.1 pg/mL (2.0-4.4)
== END 2024-03-09 23:59 | disposition home or self-care (01) ==
LOC: LAB.DROPOF 03-10 09:25
PROVIDERS: PCP Nurse Practitioner Family; Visit Provider Nurse Practitioner Family
DX: E03.9 Hypothyroidism, unspecified (principal); E55.9 Vitamin D deficiency, unspecified; K52.9 Noninfective gastroenteritis and colitis, unspecified; Z11.59 Encounter for screening for other viral diseases; Z91.89 Other specified personal risk factors, not elsewhere classified; Z11.4 Encounter for screening for human immunodeficiency virus [HIV]; R79.89 Other specified abnormal findings of blood chemistry; R53.83 Other fatigue; Z20.5 Contact with and (suspected) exposure to viral hepatitis; Z13.220 Encounter for screening for lipoid disorders; Z79.899 Other long term (current) drug therapy
CPT/HCPCS: 80053; 80061; 82306; 82607; 84443; 84481; 85025; 86803; 87389

== ENCOUNTER 2024-03-20 10:12 | Emergency (ER) | payer MEDICARE, SELFPAY ==
[2024-03-20 10:40] VITALS: BP 141/88; PULSE 87; RESP 19; TEMP 36.9; O2SAT 97; BMI 32.1
[2024-03-20 10:53] LABS: UTC Strep Screen (Rapid) Negative (Negative)
--- NOTE | 2024-03-20 11:11 | ED_ITS ---
Discharge Plan Disposition Patient Disposition: Home, Self-Care Condition: Good Prescriptions Prescriptions: New amoxicillin 500 mg tablet 500 mg PO BID 10 Days Qty: 20 0RF fluticasone propionate 50 mcg/actuation spray,suspension 1 spray intranasal DAILY Qty: 16 0RF No Action levothyroxine 137 mcg tablet 137 mcg PO DAILY venlafaxine 75 mg capsule,extended release 24hr 75 mg PO DAILY Patient Comments: TAKE ONE CAPSULE BY MOUTH EVERY DAY trazodone 50 mg tablet 25 mg PO DAILY Patient Comments: TAKE 1/2 TABLET BY MOUTH EVERY DAY Referrals Follow up/Referrals: Dana York APRN [Primary Care Provider] - See instructions Activity Restrictions/Add. Instructions Additional Instructions/Restrictions: Start antibiotic patient to take as ordered for a full length of time even if you feel better. Sinus infections do not get better overnight. It may take 2-3 days to notice much improvement so be sure to use conservative measures as discussed for symptoms. Flonase 1 spray each nostril daily to help with nasal congestion, sinus and ear pressure/information Increase fluids Humidifier/vaporizer as needed Tylenol and ibuprofen as needed for fever or pain. If symptoms do not improve or get worse return or be seen in the ER Follow-up with primary care this week Clinical Impressions Clinical Impression: Acute maxillary sinusitis Instructions Patient Instructions: DI for Sinusitis Print Language Print Language: Khmer Discharge ED Provider: Kathy ([facility])[place] HPI General Stated complaint: sore throat, cough Mode of Arrival: Ambulatory Source of Information: Patient Limitations: No Limitations Time Seen by Provider: 03/20/24 11:11 Description of Symptoms (Recalled from Triage Doc. by RN): PATIENT C/O SORE THROAT, DEEP COUGH, AND NO VOICE X 2 DAYS HEENT Symptoms (Recalled from RN notes): Yes Resp Symptoms (Recalled from RN notes): Yes Skin Symptoms (Recalled from RN notes): No MS Symptoms (Recalled from RN notes): No Functional Status (Recalled from RN notes): WNL History of Present Illness Provider Complaint: 63-year-old female presents for complaints of sore throat, deep cough, sinus pressure, sinus pain, green nasal drainage, and no voice for 2 days. Related Data Home Medications ?Medication ?Instructions ?Recorded ?Confirmed levothyroxine 137 mcg tablet 137 mcg PO DAILY 03/20/24 03/20/24 trazodone 50 mg tablet 25 mg PO DAILY 03/20/24 03/20/24 venlafaxine 75 mg capsule,extended 75 mg PO DAILY 03/20/24 03/20/24 release 24 hr Previous Rx's ?Medication ?Instructions ?Recorded amoxicillin 500 mg tablet 500 mg PO BID 10 days #20 tabs 03/20/24 fluticasone propionate 50 1 spray intranasal DAILY #16 grams 03/20/24 mcg/actuation nasal spray,suspension Allergies Allergy/AdvReac Type Severity Reaction Status Date / Time No Known Allergies Allergy Verified 03/09/24 08:22 Worker's Comp Is this a Worker's Comp case?: No [facility] Disclaimer: The information contained in this section may have been updated after the patient was seen, as this information can be updated by other users. Medical History , [employer]) Cervical cancer Hypothyroidism Acute viral syndrome Pharyngitis Influenza Closed head injury Acute bronchitis Sinusitis UTI (urinary tract infection) Inflammatory bowel diseases (IBD) Diverticulosis of colon Degenerative disc disease Surgical History , [employer]) History of esophagogastroduodenoscopy (EGD) History of colonoscopy H/O total hysterectomy Family History , [employer]) Dementia Stroke Father Social History , [employer]) Smoking Status: Never smoker alcohol intake: current alcohol intake frequency: holidays/special occasions only substance use type: denies use current occupational status: employed household members: spouse housing: house 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 current occupational exposures/hazards: No caffeine: Yes ROS Obtained: Yes Systems reviewed as appropriate & no additional complaints except as documented ENT Ears, Nose, Mouth, and Throat: Reports system reviewed and no additional complaints, except as documented and Reports as per HPI Physical Exam General General appearance: alert and in no apparent distress ENT ENT exam: Present mucous membranes moist and TM's normal bilaterally Expanded ENT Exam Nose exam: Present sinus tenderness Respiratory Respiratory exam: Present normal lung sounds bilaterally Cardiovascular Cardiovascular exam: Present regular rate and normal rhythm Neurological Exam Neurological exam: Present alert and oriented X3 Skin Skin exam: Present warm and intact Medical Decision Making Medical Records Medical records reviewed: Yes I reviewed the patient's medical records. Screening: Per USPSTF and CDC recommendations, given the prevalence of disease in our region, it is our hospital?s policy to screen for HIV and viral Hepatitis for all patients aged 18 and over and those with ongoing risk factors. Konstantin Inquiry Pt receiving controlled substance: No Konstantin was queried for this patient: No Vital Signs: 03/20/24 10:40 Temperature 98.4 F Temperature Source Oral Pulse Rate [Left Brachial] 87 Respiratory Rate 19 Blood Pressure [Left Arm] 141/88 H Blood Pressure Mean [Left Arm] 105 Blood Pressure Source [Left Arm] Automatic Cuff Blood Pressure Position [Left Arm] Sitting 02 Sat by Pulse Oximetry 97 Oxygen Delivery Method Room Air Lab Data Lab results reviewed: Yes I reviewed the patient's lab results. Lab Results 03/20/24 10:35: Strep Scn Rapid Clinic Negative Orders (Tests/Meds): ORDERS Category Date Time Status Strep Screen Confirmation Stat Micro 03/20/24 10:35 Received
[2024-03-20 11:28] VITALS: BP 141/88; PULSE 87; RESP 19; TEMP 36.9; O2SAT 97
[2024-03-20] MEDS: DEXAMETHASONE 4MG/ML 1ML VIAL 4 MG IM (11:28)
== END 2024-03-20 11:40 | disposition home or self-care (01) ==
PROVIDERS: Emergency Provider Nurse Practitioner Family; PCP Nurse Practitioner Family
DX: J01.00 Acute maxillary sinusitis, unspecified (principal)
CPT/HCPCS: 87880; 96372; 99213; G0381; J1100

== ENCOUNTER 2024-03-27 11:34 | Emergency (ER) | payer MEDICARE, SELFPAY ==
--- NOTE | 2024-03-27 12:00 | ED_ITS ---
Discharge Plan Disposition Patient Disposition: Home, Self-Care Condition: Good Prescriptions Prescriptions: New benzonatate 100 mg capsule 100 mg PO TIDP PRN (Reason: Cough) Qty: 30 0RF methylprednisolone 4 mg Tablets,Dose Pack 4 mg PO DIRECTED 6 Days Qty: 21 0RF Rx Instructions: Take 1 pack as directed for 6 days amoxicillin-pot clavulanate 875-125 mg Tablet 1 tab PO Q12H Qty: 20 0RF No Action levothyroxine 137 mcg tablet 137 mcg PO DAILY venlafaxine 75 mg capsule,extended release 24hr 75 mg PO DAILY Patient Comments: TAKE ONE CAPSULE BY MOUTH EVERY DAY trazodone 50 mg tablet 25 mg PO DAILY Patient Comments: TAKE 1/2 TABLET BY MOUTH EVERY DAY fluticasone propionate 50 mcg/actuation spray,suspension 1 spray intranasal DAILY Qty: 16 0RF Referrals Follow up/Referrals: Dana York APRN [Primary Care Provider] - See instructions Activity Restrictions/Add. Instructions Additional Instructions/Restrictions: Drink plenty of fluids. Take tylenol for pain or fever. Take the medications as directed. Follow up with your regular doctor. GO TO THE ER FOR ANY WORSENING SYMPTOMS Don't start the oral steroids (medrol dose pack) until tomorrow since you had the shot here Clinical Impressions Clinical Impression: Pneumonia Instructions Patient Instructions: Pneumonia--Adult, Ceftriaxone Injection, Dexamethasone Injection Print Language Print Language: Bur[place]ian Discharge ED Provider: [facility] [place] HPI General Stated complaint: chest tightness, labored breathing, cough, fever Time Seen by Provider: 03/27/24 12:00 Related Data Home Medications ?Medication ?Instructions ?Recorded ?Confirmed levothyroxine 137 mcg tablet 137 mcg PO DAILY 03/20/24 03/27/24 trazodone 50 mg tablet 25 mg PO DAILY 03/20/24 03/27/24 venlafaxine 75 mg capsule,extended 75 mg PO DAILY 03/20/24 03/27/24 release 24 hr Previous Rx's ?Medication ?Instructions ?Recorded fluticasone propionate 50 1 spray intranasal DAILY #16 grams 03/20/24 mcg/actuation nasal spray,suspension amoxicillin 875 mg-potassium 1 tab PO Q12H #20 tabs 03/27/24 clavulanate 125 mg tablet benzonatate 100 mg capsule 100 mg PO TIDP PRN Cough #30 caps 03/27/24 methylprednisolone 4 mg tablets in 4 mg PO DIRECTED 6 days #21 tabs 03/27/24 a dose pack Allergies Allergy/AdvReac Type Severity Reaction Status Date / Time No Known Allergies Allergy Verified 03/09/24 08:22 [facility] Disclaimer: The information contained in this section may have been updated after the patient was seen, as this information can be updated by other users. 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) History of esophagogastroduodenoscopy (EGD) History of colonoscopy H/O total hysterectomy Family History , APPLIANCE SERVICE REPRESENTATIVE) Dementia Stroke Father Social History (Updated 03/20/24 @ 11:23 by Salome Chavez ([facility]), APPLIANCE SERVICE REPRESENTATIVE) Smoking Status: Never smoker alcohol intake: current alcohol intake frequency: holidays/special occasions only substance use type: denies use current occupational status: employed household members: spouse housing: house 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 current occupational exposures/hazards: No caffeine: Yes ROS Obtained: Yes All systems reviewed & no additional complaints except as documented Constitutional Constitutional: Reports poor appetite Eyes Eyes: Reports system reviewed and no additional complaints, except as documented ENT Ears, Nose, Mouth, and Throat: Reports as per HPI Cardiovascular Cardiovascular: Reports system reviewed and no additional complaints, except as documented and Denies chest pain Respiratory Respiratory: Denies shortness of breath, Reports chest congestion, Reports cough, Denies stridor and Denies wheezing Gastrointestinal Gastrointestingal: Reports system reviewed and no additional complaints, except as documented; Denies abdominal pain, diarrhea or vomiting Musculoskeletal Musculoskeletal: Reports system reviewed and no additional complaints, except as documented and Denies arthralgias Integumentary/Breasts Skin/Breast: Reports system reviewed and no additional complaints, except as documented and Denies rash Neurologic Neurologic: Denies paresthesias Allergic/Immunologic Allergic/Immunologic: Denies wheezing Physical Exam General General appearance: alert and in no apparent distress Eye Eye exam: Present normal appearance, PERRL and EOMI ENT ENT exam: Present mucous membranes moist and normal external ear exam Expanded ENT Exam External ear exam: Present normal external inspection TM/Canal exam: Bilateral TM: erythema and bulging Nose exam: Absent sinus tenderness Nasal speculum exam: Bilateral: normal Mouth exam: Present normal external inspection; Absent drooling Teeth exam: Present normal inspection Throat exam: Present tonsillar erythema and tonsillomegaly Neck Neck exam: Present normal inspection, full ROM and trachea midline; Absent tenderness, lymphadenopathy or thyromegaly Chest Chest inspection: Present normal inspection and symmetric chest wall rise; Absent tenderness or rash Respiratory Respiratory exam: Present normal lung sounds bilaterally; Absent respiratory distress, wheezes, stridor or accessory muscle use Cardiovascular Cardiovascular exam: Present regular rate, normal rhythm and normal heart sounds Abdominal Exam Abdominal exam: Present soft; Absent distention, tenderness, guarding, rebound or rigidity Extremities Exam Extremities exam: Present normal inspection, full ROM and normal capillary refill; Absent tenderness or calf tenderness Back Exam Back exam: Present normal inspection and full ROM; Absent tenderness Neurological Exam Neurological exam: Present alert and oriented X3 Psychiatric Psychiatric exam: Present normal affect and normal mood Skin Skin exam: Present warm, dry, intact and normal color Lymphatic Lymphatic Findings: no adenopathy Medical Decision Making Medical Records Medical records reviewed: No I reviewed the patient's medical records. Screening: Per USPSTF and CDC recommendations, given the prevalence of disease in our region, it is our hospital?s policy to screen for HIV and viral Hepatitis for all patients aged 18 and over and those with ongoing risk factors. Konstantin Inquiry Pt receiving controlled substance: No
[2024-03-27 12:07] VITALS: BP 144/82; PULSE 87; RESP 18; TEMP 36.5; O2SAT 97; BMI 32.3
--- NOTE | 2024-03-27 12:18 | XR_ITS ---
PROCEDURE INFORMATION: Exam: XR Chest Exam date and time: 03/27/2024 12:38 PM Age: 63 years old Clinical indication: Cough; Additional info: Cough, congestion, fever, fatigue TECHNIQUE: Imaging protocol: Radiologic exam of the chest. Views: 2 views. COMPARISON: CR XR CHEST PORTABLE 07/06/2023 12:12 PM FINDINGS: Lungs: Parenchymal scarring right upper lobe Pleural spaces: Unremarkable. No pleural effusion. No pneumothorax. Heart/Mediastinum: Unremarkable. No cardiomegaly. Bones/joints: Unremarkable. IMPRESSION: No evidence of acute intrathoracic abnormality.
[2024-03-27] MEDS: cefTRIAXone 1GM VIAL 1 GM IM (13:18)
[2024-03-27] MEDS: LIDOCAINE 1% 5ML PF VIAL IM (13:18)
[2024-03-27] MEDS: DEXAMETHASONE 4MG/ML 1ML VIAL 8 MG IM (13:18)
[2024-03-27 13:35] VITALS: BP 144/82; PULSE 87; RESP 18; TEMP 36.5
== END 2024-03-27 13:39 | disposition home or self-care (01) ==
PROVIDERS: Emergency Provider Nurse Practitioner Family; PCP Nurse Practitioner Family
DX: J18.9 Pneumonia, unspecified organism (principal)
CPT/HCPCS: 71046; 96372; 99213; G0381; J0696; J1100

== ENCOUNTER 2024-05-21 08:34 | Day surgery (SDC) | payer MEDICARE, SELFPAY ==
[2024-05-18 10:33] VITALS: BMI 31.4
[2024-05-21] MEDS: LACTATED RINGERS 1000ML 1,000 ML 25 ML IV (08:49)
[2024-05-21 08:53] VITALS: BP 145/93; PULSE 79; RESP 16; TEMP 36.6; O2SAT 98
--- NOTE | 2024-05-21 09:07 | EXP.ANES.CKL ---
[facility] Disclaimer: The information contained in this section may have been updated after the patient was seen, as this information can be updated by other users. Medical History Anxiety History of COVID-19 Cervical cancer Hypothyroidism Degenerative disc disease Acute viral syndrome Influenza Pharyngitis Closed head injury Acute bronchitis Sinusitis UTI (urinary tract infection) Inflammatory bowel diseases (IBD) Diverticulosis of colon Surgical History History of oral surgery History of esophagogastroduodenoscopy (EGD) History of colonoscopy H/O total hysterectomy Family History Grandfather No problems noted. 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 current occupational exposures/hazards: No caffeine: Yes Have you lived/traveled outside [place] in past 30 days?: No Contact w/someone who lives/traveled outside US past 30 days?: No Exposure to someone with infectious disease in past 14 days?: No Do you have a fever (greater than 100.4 F or 38 C)?: No Have you tested positive for COVID-19: No Exposed to someone with COVID-19 in past 14 days?: Yes Do you have a sore throat?: No Do you have a cough?: No Do you have any weakness?: No Are you experiencing any nausea/vomitting?: No Do you have any diarrhea?: No Are you experiencing any unusual bleeding?: No Do you have any muscle aches/pain?: No Do you have any abdominal pain?: No Are you experiencing loss of taste or smell?: No [facility] Anesthesia Checklist Patient Identification Patient Identification: Arm Band Structural Data Admitted From: Home Planned Operative Procedure/s: EGD Consent for Planned Operative Procedure(s) Verified: Yes Verified Documents: Surgical Consent and History and Physical NPO Status Verified Time NPO: 00:00 Additional verifications Anesthesia Reactions: No Airway Assessment Mallampati Score:: Class II C-Spine Mobility Assessed: Yes TMJ Mobility Assessed: Yes Dentition: Edentulous Neurological Assessment Level of Consciousness: Awake, Alert and Appropriate Anesthesia Plan Anesthesia Risk discussed: Yes Anesthesia Plan: Verified ASA Class: II Anesthesia Type: MAC
--- NOTE | 2024-05-21 09:08 | EXP.GEN.HP ---
HPI HPI HPI: Patient presents for follow-up endoscopy due to history of gastric ulcer. She had been seen in the emergency department in August with abdominal pain and was started on pantoprazole. I did upper endoscopy on 09/26/2023 which revealed most notable large deep complex gastric ulcer in the greater curvature body of the stomach. Biopsies were benign. I added Carafate to her Protonix. When she followed back up in the office on 10/28/2023 patient was not taking Carafate or Protonix but had discontinued Naprosyn and therefore I started her on high-dose proton pump inhibitors and sucralfate. Follow-up endoscopy was performed on 12/19/2023 which actually revealed completely healed gastric ulcer characterized by indurated stellate scarring. Biopsies at the site of the ulcer revealed chronic active gastritis . After her last follow-up following her second endoscopy I had her decrease her pantoprazole to maintenance therapy and discontinue the Carafate. Patient presented to the office for follow-up on 04/13/2024 stating that she was doing fair . She was concerned her ulcer has returned. She has had a lot of stress with recent of her . However, she had not taken her pantoprazole for a couple of months as she states the pharmacy did not fill it. Patient was placed back on pantoprazole immediately. Arrangements were made for relatively expeditious upper endoscopy to assess for ulcer recurrence. [facility] Disclaimer: The information contained in this section may have been updated after the patient was seen, as this information can be updated by other users. Medical History Anxiety History of COVID-19 Cervical cancer Hypothyroidism Degenerative disc disease Acute viral syndrome Influenza Pharyngitis Closed head injury Acute bronchitis Sinusitis UTI (urinary tract infection) Inflammatory bowel diseases (IBD) Diverticulosis of colon Surgical History History of oral surgery History of esophagogastroduodenoscopy (EGD) History of colonoscopy H/O total hysterectomy Family History Grandfather No problems noted. 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 current occupational exposures/hazards: No caffeine: Yes Have you lived/traveled outside US in past 30 days?: No Contact w/someone who lives/traveled outside US past 30 days?: No Exposure to someone with infectious disease in past 14 days?: No Do you have a fever (greater than 100.4 F or 38 C)?: No Have you tested positive for COVID-19: No Exposed to someone with COVID-19 in past 14 days?: Yes Do you have a sore throat?: No Do you have a cough?: No Do you have any weakness?: No Are you experiencing any nausea/vomitting?: No Do you have any diarrhea?: No Are you experiencing any unusual bleeding?: No Do you have any muscle aches/pain?: No Do you have any abdominal pain?: No Are you experiencing loss of taste or smell?: No Other Medical History Have you received the Flu Vaccine for this season: No Have you received the Pneumonia Vaccine: No Meds Home Medications and Allergies Home Medications ?Medication ?Instructions ?Recorded ?Confirmed ?Type levothyroxine 137 mcg tablet 137 mcg PO DAILY 03/20/24 05/21/24 History methenamine hippurate 1 gram tablet 1 g PO DAILY 04/13/24 05/21/24 History pantoprazole 40 mg tablet,delayed 40 mg PO DAILY #30 tabs 04/13/24 05/21/24 Rx release (Protonix) trazodone 50 mg tablet 50 mg PO DAILY #30 tabs 05/07/24 05/21/24 Rx venlafaxine 75 mg capsule,extended 75 mg PO DAILY #30 caps 05/07/24 05/21/24 Rx release 24 hr fluconazole 100 mg tablet See Rx Instructions .Route 05/13/24 05/21/24 Rx .COMPLEX #14 tabs New Prescriptions to Start Prescriptions: Allergies Allergy/AdvReac Type Severity Reaction Status Date / Time No Known Allergies Allergy Verified 05/18/24 10:00 Exam Data for Last 24 hours Vital signs and Labs for Last 24 Hours: Temp Pulse Resp BP Pulse Ox O2 Del Method 97.8 F 79 16 145/93 H 98 Room Air 05/21/24 08:53 05/21/24 08:53 05/21/24 08:53 05/21/24 08:53 05/21/24 08:53 05/21/24 08:53 I & O for Last 24 hours: Intake & Output 05/18/24 05/19/24 05/20/24 05/21/24 11:59 11:59 11:59 11:59 Weight 195 lb Constitutional Constitutional: no acute distress *Routine HEENT Exam Head: Present normocephalic Eye: Present EOMI and PERRL ENT: Present mucous membranes moist *Routine Neck Exam Neck: Present supple; Absent lymphadenopathy *Routine Respiratory Exam Respiratory: Present CTA bilaterally *Routine Cardiovascular Exam Cardiovascular: Present RRR *Routine Abdominal Exam Abdominal: Present soft and normoactive bowel sounds; Absent tenderness *Routine Rectal Exam Rectal:: deferred *Routine Genitalia Exam Genitalia:: deferred *Routine Extremities Exam Extremities: Absent cyanosis, clubbing or edema *Routine Skin Exam Skin: Present warm; Absent rash *Routine Neurological Exam Neurological: Present alert and oriented X3 Assessment and Plan *Assessment and plan (1) Gastric ulcer: Status: Acute Category: Medical Code(s): K25.9 - Gastric ulcer, unspecified as acute or chronic, without hemorrhage or perforation Plan Proceed with upper endoscopy
[2024-05-21 09:19] VITALS: O2SAT 98
--- NOTE | 2024-05-21 09:34 | P.PCN_ITS ---
Procedure: Date: 05/21/24 Patient Date of :: 1960 Procedure Performed:: Esophagogastroduodenoscopy with biopsies Indications:: Patient presents for follow-up endoscopy due to history of gastric ulcer. She had been seen in the emergency department in August with abdominal pain and was started on pantoprazole. I did upper endoscopy on 09/26/2023 which revealed most notable large deep complex gastric ulcer in the greater curvature body of the stomach. Biopsies were benign. I added Carafate to her Protonix. Of note, incidentally, according to the medical record, patient was seen in the emergency department on 09/27/2023 with vomiting and diarrhea. CT imaging at that time revealed multiple loops of nondilated gas and fluid-filled small bowel and colon. There was some minimal wall thickening of the mid and distal sigmoid colon with some adjacent fat stranding consistent with mild colitis. She had a mildly elevated lipase of 441. When she followed back up in the office on 10/28/2023 for her gastric ulcer patient was not taking Carafate or Protonix but had discontinued Naprosyn and therefore I started her on high-dose proton pump inhibitors and sucralfate. Follow-up endoscopy was performed on 12/19/2023 which actually revealed completely healed gastric ulcer characterized by indurated stellate scarring. Biopsies at the site of the ulcer revealed chronic active gastritis . After her last follow-up following her second endoscopy I had her decrease her pantoprazole to maintenance therapy and discontinue the Carafate. Patient presented to the office for follow-up on 04/13/2024 stating that she was doing fair . She was concerned her ulcer has returned. She has had a lot of stress with recent of her . However, she had not taken her pantoprazole for a couple of months as she states the pharmacy did not fill it. She describes symptoms of epigastric and somewhat left upper quadrant pain. Patient was placed back on pantoprazole immediately. Arrangements were made for relatively expeditious upper endoscopy to assess for ulcer recurrence. Patient did have colonoscopy with Dr. Musa Kate on 10/15/2019 at which time she had pandiverticulosis and a diminutive cecal polyp which was proven to be fragments of early tubular adenoma. Repeat colonoscopy 7 to 10 years was recommended. . Performing Provider:: Vitor Hargrove MD Referring Provider:: Dana York Sedation:: MAC sedation Procedure:: Patient history was obtained and appropriate physical examination was performed. Patient's medications and allergies were reviewed. Informed consent was obtained after explaining the benefits, alternatives, and risks of the procedure including, but not limited to, bleeding, perforation, missed lesions, and adverse reaction to anesthesia medications. Patient was transported to endoscopy procedure room. Patient was connected to monitoring devices. Throughout the procedure the patient's blood pressure, pulse, and oxygen saturations were monitored continuously. Patient identification and planned procedure were verified by the staff. Patient was positioned in lateral decubitus position. Olympus endoscope was inserted via the oropharynx. Esophagus was cannulated. There was some mild tortuosity to the esophagus. Gastroesophageal junction was encountered at approximately 38 cm. Stomach was cannulated and insufflated. Retroflexion revealed minuscule sliding hiatal hernia. There was some diffuse gastropathy. Location of previous ulcer was identified and found to be consistent with some minor stellate scarring and induration. No evidence of any residual or recurrent ulcer. Pylorus was traversed. Duodenum appeared overall unremarkable but there was some prominent duodenal mucosa in the bulb and biopsies were performed. Endoscope was withdrawn into the gastric lumen and biopsy was performed of the antrum. Multiple biopsies were performed of the site of the previous ulcer. Biopsy was performed of the distal esophagus. Stomach was de sufflated and the endoscope was withdrawn. . Findings:: Mild esophageal dysmotility Gastroesophageal junction at 38 cm Minuscule hiatal hernia Diffuse gastropathy Evidence of previously healed ulcer . Recommendations:: Follow-up on histopathology. If unremarkable and symptoms persist may need gastroenterology evaluation and could potentially need a follow-up colonoscopy given her prior history of adenomatous polyp 4 and half years ago and evaluation in the emergency department at which time she was found to have evidence of colitis and possible mild pancreatitis. Patient has not had cholecystectomy. Complications:: None immediately apparent Estimated blood obtained (mL): 2 Colonoscopy Component Colonoscopy Component Was a colonoscopy performed during today's procedure?: No
[2024-05-21 09:35] VITALS: BP 132/80; PULSE 80; RESP 16; TEMP 36.4; O2SAT 94
[2024-05-21 09:45] VITALS: BP 103/65; PULSE 84; RESP 16; O2SAT 97
[2024-05-21 09:55] VITALS: BP 105/68; PULSE 86; RESP 16; O2SAT 97
[2024-05-21 10:05] VITALS: BP 104/66; PULSE 88; RESP 16; O2SAT 97
== END 2024-05-21 10:05 | disposition home or self-care (01) ==
PROVIDERS: PCP Nurse Practitioner Family; Visit Provider Surgery
PROC: 0DJ08ZZ Inspection of Upper Intestinal Tract, Via Natural or Artificial Opening Endoscopic (ICD-10-PCS; CPT 43239; principal; 2024-05-21 10:30)
DX: K25.9 Gastric ulcer, unspecified as acute or chronic, without hemorrhage or perforation (principal); K22.4 Dyskinesia of esophagus; K44.9 Diaphragmatic hernia without obstruction or gangrene
CPT/HCPCS: 43239; 88305; J7120

== ENCOUNTER 2024-06-03 08:12 | Outpatient (CLI) | payer MEDICARE, SELFPAY ==
--- NOTE | 2024-06-03 08:13 | US_ITS ---
FINAL REPORT CLINICAL HISTORY: right upper quad pain COMPARISON: None FINDINGS: Sonographic images of the right upper quadrant were obtained. The pancreas is partially obscured. There is fatty infiltration of the liver. Sludge is noted in the gallbladder. There is no evidence of biliary ductal dilatation.The common duct measures 8mm. Limited images of the right kidney are unremarkable. IMPRESSION: Fatty liver. Gallbladder sludge. Reviewed, Interpreted and Dictated by Dax Berrios MD Transcribed by Alma Rosa Greco Authenticated and . [facility]
== END 2024-06-03 23:59 | disposition home or self-care (01) ==
LOC: RAD 08:13
PROVIDERS: PCP Nurse Practitioner Family; Visit Provider Surgery
DX: R10.11 Right upper quadrant pain (principal)
CPT/HCPCS: 76705

== ENCOUNTER 2024-08-24 10:41 | Emergency (ER) | payer MEDICARE, SELFPAY ==
--- NOTE | 2024-08-24 10:49 | ECG_ITS ---
APPROVED REPORT Exam: Resting ECG HR:78 bpm ECG Measurements Heart Rate 78 AXES SC 147 P 45 QRSd 86 QRS 7 QT 381 T 44 QTc 415 Conclusion SINUS RHYTHM NORMAL ECG Electronically signed by : ESPINOZA IBANEZ, 08/24/2024 14:40:25
--- OUTSIDE RECORDS SUMMARY | 2024-08-24 10:50 | XMS_ITS | Data Portability ---
Author Organization [facility] & TREVON Rocha ADMIN Address [address] [place] [id number] Assessment No assessment recorded. Plan of Treatment Reminders Order Date Submit Date Provider Last Modified By Organization Details Last Modified Time Details Appointments None recorded. Lab None recorded. Referral None recorded. Procedures bladder scan (PROC) [email or web address], [address], 15:25:08 Surgeries None recorded. Imaging None recorded. Medication Orders methenamine hippurate 1 gram tablet 2022 023 [facility] #[id number], [address] [place], [place], [phone], 3 15:25:14 ascorbic acid (vitamin C) 500 mg tablet 2022 023 [facility] #[id number], [address] [place], [place], [phone], 3 15:25:13 Patient TargetsNo targets recorded. Patient InstructionsNo instructions recorded. Reason for Referral None Reported. Results Created Date Observation Date Name Description Value Unit Range Abnormal Flag Note LastModifiedBy Organization Detail LastModifiedTime 01/23/2001/22/2023 bladd er scan (PROC ) Calculated Residual Urine: 91 ml Not Available [address], [address], 01/22/2023 15:21:16 Result Notes None recorded. Procedures Surgical History Date Name Laterality Status Provider Name and Address Organization Details Recorded Time Total Hysterectomy completed [facility] & [place] 01/20/2023 16:16:23 panniculotomy completed [facility] [place] & [place] 01/20/2023 16:16:30 colonoscopy completed [facility] [place] & [place] 01/20/2023 16:16:47 dental surgical procedure completed [facility] [place] & [place] 01/20/2023 16:17:01 Imaging Results None recorded. Procedure Notes None recorded. Medical Equipment None Reported. Allergies No known drug allergies Medications Name Sig Start Date Stop Date Status Note LastModified by Organization Details LastModified Time promethazin e-DM 6.25 mg-15 mg/5 mL oral syrup TAKE 5 MLS BY MOUTH EVERY 6 HOURS NEEDED active Not Available Not Available No t Available venlafaxine ER 37.5 mg capsule,ext ended release 24 hr TAKE 1 CAPSULE BY MOUTH EVERY DAY active Not Available Not Available No t Available venlafaxine ER 75 mg capsule,ext ended release 24 hr TAKE 1 CAPSULE BY MOUTH DAILY active Not Available Not Available No t Available Vitamin C 500 mg tablet TAKE 1 TABLET BY MOUTH THREE TIMES DAILY active Not Available Not Available No t Available trazodone 50 mg tablet TAKE 1 TABLET BY MOUTH active Not Available Not Available No t Available ibuprofen 800 mg tablet TAKE 1 TABLET BY MOUTH EVERY 6 HOURS NEEDED FOR PAIN active Not Available Not Available No t Available phenazopyri dine 200 mg tablet TAKE 1 TABLET BY MOUTH THREE TIMES DAILY 01/20 completed Not Available Not Available Not Available sulfamethox azole 800 mg-trimetho prim 160 mg tablet TAKE 1 TABLET BY MOUTH TWICE DAILY 01/20 completed Not Available Not Available Not Available amoxicillin 500 mg tablet TAKE 1 TABLET BY MOUTH 3 TIMES DAILY 01/20 completed Not Available Not Available Not Available terbinafine HCl 250 mg tablet TAKE 1 TABLET BY MOUTH DAILY active Not Available Not Available No t Available methenamine hippurate 1 gram tablet TAKE ONE TABLET BY MOUTH EVERY DAY 2023 active Not Available Not Available Not Avai lable cephalexin 500 mg capsule TAKE 1 CAPSULE BY MOUTH TWICE DAILY 01/20 completed Not Available Not Available Not Available levothyroxi ne 125 mcg tablet TAKE 1 TABLET BY MOUTH DAILY active Not Available Not Available No t Available montelukast 10 mg tablet TAKE 1 TABLET BY MOUTH EVERY EVENING active Not Available Not Available No t Available levofloxaci n 500 mg tablet TAKE 1 TABLET BY MOUTH ONCE DAILY FOR 10 DAYS. 01/20 completed Not Available Not Available Not Available ondansetron 4 mg disintegrat ing tablet DISSOLVE 1 TABLET ON THE TONGUE EVERY 6 HOURS FOR 5 DAYS NEEDED FOR NAUSEA OR VOMITING 01/20 completed Not Available Not Available Not Available naproxen 500 mg tablet TAKE 1 TABLET BY MOUTH TWICE DAILY NEEDED FOR PAIN active Not Available Not Available No t Available levothyroxi ne 112 mcg tablet TAKE 1 TABLET BY MOUTH DAILY 01/20 completed Not Available Not Available Not Available oxycodone 5 mg tablet TAKE 1 TABLET BY MOUTH EVERY 6 HOURS NEEDED FOR PAIN 01/20 completed Not Available Not Available Not Available Vitals Date Recorded Body height Body mass index (BMI) Body weight Body temperature Provider Name and Address Organization Details Last Updated DateTime 01/22/2023 167.64 cm 30.3 kg/m2 39384.37 g 98 [degF] [facility] [place] 01/22/2023 14:50:29 Social History None recorded. Functional Status None recorded. Mental Status None recorded. Family History Nothing Reported Notes:Mother- Father - Brother liver disease Medical History No medical history recorded. Gynecological HistoryNo gynecological history recorded. Obstetrics History GPAL:G 0 P 0 0 0 0 Past Encounters Encounter ID Performer Location Encounter Start Date Encounter Closed Date Diagnosis/Indication Diagnosis SNOMED-CT Code Diagnosis ICD10 Code Diagnosis Note [id number] Eddie Borrego Jr, MD [facility] [address] [address] 01/22/2023 14:15:23 01/22/2023 16:20:31 Recurrent urinary tract infection 279533614 N39.0 patient referred for recurrent urinary tract infections . Her risk factors include a 91 cc residual. She also has some mild stress incontinen ce requiring some pad use. We discussed treatment options and I am going to place her on a course of methenamin e and vitamin-C to alter the urine pH and make it more difficult for bacterial organisms to grow. Female str ess incontinence 22441301 N39.3 patient with mild stress urinary incontinen ce requiring 3-4 pads per day. She is mild degree of urgency as well. we discussed treatment options. Kegel exercises discussed. This is not a big problem for her and does not want to consider any surgical options at this time. Health Concerns Section Related Observation LastModified by Organization Detai ls LastModified Time None Recorded Concern Status LastModified by Organization Details LastModified Time None Recorded Advance Directives Directive None Recorded Payers Encounter Date Sequence Insurance Name Policy Number Policy Mcmanus Covered Member ID Mcmanus Member ID Guarantor Name 01/22/2023 1 [place]! (PPO) [id number] Soledad Roque [id number] Soledad Roque Notes Date Note Type Note Provider Name and Address Organization Details Recorded Time 01/22/2023 text/html patient is 62-year-old white female referred for urinary tract infections. She states 3 urinary tract infections over past few months. She is not sexually active. She does state some mild stress incontinence requiring 3-4 panty liners a day. Her bladder scan today shows a residual of 91 cc. Her symptoms of UTI back pain, darker colored urine and dysuria. She states he drinks plenty of fluids during the day as she is usually outdoors working. Urine culture in September showed Klebsiella organism. She states she had a UTI in November but the culture is not available. Eddie Borrego Jr, MD [address] [place] [address], [address], [place], [address], [facility] - [place] - [place] & [place] 01/22/2023 15:26:28 OBGyn Episode No OBEpisode recorded.
[2024-08-24 10:54] VITALS: BP 172/104; PULSE 85; RESP 14; TEMP 36.6; O2SAT 97; BMI 33.0
[2024-08-24 10:57] LABS: POC Glucose,Bedside 112 (70-110)
[2024-08-24 11:01] VITALS: BP 146/95; PULSE 70; RESP 16; O2SAT 98
[2024-08-24] MEDS: LACTATED RINGERS 1000ML 1,000 ML 999 ML IV (11:45)
[2024-08-24 11:49] LABS: Basophils % 0.4 % (0.1-2.0); Eosinophils # 0.1 Kmm3 (0.0-0.4); Eosinophils % 0.9 % (0.1-12.0); Hematocrit 48.6 % (37.0-47.0); Hemoglobin 16.1 g/dL (12.2-16.2); Lymphocytes # 2.9 K/mm3 (0.7-4.5); Lymphocytes % 26.9 % (10-50); Mean Corpuscular HGB Conc 33.1 g/dL (31.8-35.4); Mean Corpuscular Volume 90.7 fl (81-99); Mean Platelet Volume 9.6 fl (7.4-10.4); Neutrophils # 6.7 K/mm3 (1.8-7.8); Neutrophils % 62.4 % (37.0-80.0); Nucleated Red Blood Cells # 0 10^3/uL; Nucleated Red Blood Cells % 0 %; Platelet Count 292 K/mm3 (142-424); Red Blood Count 5.36 M/mm3 (4.20-5.40); Red Cell Distribution Width 12.5 % (11.5-17.5); Red Cell Distribution Width-SD 41.2 fL; White Blood Count 10.7 K/mm3 (4.8-10.8)
[2024-08-24 11:53] LABS: Microscopic, Urine URINE MICROSCOPIC (MICROSCOPIC)
--- NOTE | 2024-08-24 12:12 | ED_ITS ---
Discharge Plan Disposition Patient Disposition: Home, Self-Care Condition: Good Prescriptions Prescriptions: New levothyroxine 100 mcg capsule 100 mcg PO DAILY Qty: 30 2RF oxybutynin chloride 5 mg tablet 5 mg PO BID PRN (Reason: bladder spasms) Qty: 60 0RF No Action methenamine hippurate 1 gram tablet 1 g PO DAILY Patient Comments: TAKE ONE TABLET BY MOUTH EVERY DAY pantoprazole [Protonix] 40 mg tablet,delayed release (DR/EC) 40 mg PO DAILY Qty: 30 2RF trazodone 50 mg tablet 50 mg PO DAILY Qty: 30 3RF amoxicillin-pot clavulanate 875-125 mg tablet 1 tab PO BID 10 Days Qty: 20 0RF methylprednisolone [Medrol (Ferdinand)] 4 mg tablets,dose pack See Rx Instructions PO PER PKG DIR Qty: 21 0RF Rx Instructions: PO PER PKG DIR for 6 days benzonatate 100 mg capsule 100 mg PO TID PRN (Reason: cough) Qty: 30 0RF guaifenesin [Mucinex] 1,200 mg tablet extended release 12hr 1,200 mg PO BID Qty: 20 0RF levothyroxine 137 mcg tablet See Rx Instructions .ROUTE .COMPLEX Qty: 30 1RF Dose Instruction: TAKE ONE TABLET BY MOUTH EVERY DAY Rx Instructions: TAKE ONE TABLET BY MOUTH EVERY DAY venlafaxine 75 mg capsule,extended release 24hr See Rx Instructions .ROUTE .COMPLEX Qty: 30 2RF Dose Instruction: TAKE ONE CAPSULE BY MOUTH EVERY DAY Rx Instructions: TAKE ONE CAPSULE BY MOUTH EVERY DAY Referrals Follow up/Referrals: Dana York APRN [Primary Care Provider] - See instructions Activity Restrictions/Add. Instructions Additional Instructions/Restrictions: You were evaluated in the emergency department today. At this time, your thyroid levels are too high. Skip tomorrow's levothyroxine and then hop picker your new decreased dose. Take daily. Stop taking the 112 mcg dose of levothyroxine. Follow up closely with your primary care provider for recheck. You do have some blood in your urine, for which recommend follow-up with Urology. Your urine does not look infected at this time. We are unable to find what medication you are on for your bladder spasms, but we are prescribing you 1 that is indicated for bladder spasms to see if this helps. Clinical Impressions Clinical Impression: Hematuria, Iatrogenic hyperthyroidism, Urinary frequency Instructions Patient Instructions: Urinary Incontinence -- Female, Anxiety and Panic Attacks (Alternative Therapy), DI for Hyperthyroidism, DI for Hematuria Print Language Print Language: Kazakh Discharge ED Provider: Colette Westbrook General Adult HPI General Chief complaint: Anxiety Stated complaint: sweating, loss of bowels, AMS Time Seen by Provider: 08/24/24 10:52 Mode of Arrival: Ambulatory Source of Information: Patient Description of Symptoms (Recalled from ER Triage Doc. by RN): pt went to be seen by pcp this morning as she has been dealing with a bunch of stressors recently and they sent her here for sweating, chest pain. pt is anxious and tearful upon triage and states she hasnt been herslef for two weeks upon reviewing patient medication she has recently been placed on steroids and antibiotcs for pneumonia History of Present Illness HPI narrative: This patient is a 64-year-old female with a history of hypothyroidism, peptic ulcer disease, and diverticulosis presenting to the emergency department for evaluation with concern for episodes of sweating, chest pains, and extreme emotional stress. Patient states that she is undergoing a lot of emotional stress currently related to family issues, including the loss of her last year, custody soares with her granddaughter, and other issues within the family. She states that she has been having these episodes where she breaks out in a sweat without any sort of exertion and feels horrible overall. 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 She denies any significant localizable pain, such as chest pain or abdominal pain. She does note that she has had a cough, especially at night, for which she has been seen by [facility] and been on antibiotics for presumed pneumonia. She also has experienced leg cramping at night. She states she closely feels like she is dehydrated and cannot get enough fluid. She also notes concerns that she is having profuse watery diarrhea with these episodes, but she states this is nothing new for her. She also notes that she has had urinary frequency with difficulty controlling her bladder, as she ran out of the medication that her urologist had previously put her on for bladder issues. She is not sure what it was Related Data Home Medications ?Medication ?Instructions ?Recorded ?Confirmed methenamine hippurate 1 gram tablet 1 g PO DAILY 04/13/24 08/20/24 Previous Rx's ?Medication ?Instructions ?Recorded pantoprazole 40 mg tablet,delayed 40 mg PO DAILY #30 tabs 04/13/24 release (Protonix) trazodone 50 mg tablet 50 mg PO DAILY #30 tabs 05/07/24 levothyroxine 137 mcg tablet See Rx Instructions .Route 07/16/24 .COMPLEX #30 tabs venlafaxine 75 mg capsule,extended See Rx Instructions .Route 07/30/24 release 24 hr .COMPLEX #30 caps amoxicillin 875 mg-potassium 1 tab PO BID 10 days #20 tabs 08/20/24 clavulanate 125 mg tablet benzonatate 100 mg capsule 100 mg PO TID PRN cough #30 caps 08/20/24 guaifenesin 1,200 mg tablet, 1,200 mg PO BID #20 tabs 08/20/24 extended release 12 hr (Mucinex) methylprednisolone 4 mg tablets in See Rx Instructions PO PER PKG DIR 08/20/24 a dose pack (Medrol (Ferdinand)) #21 tabs levothyroxine 100 mcg capsule 100 mcg PO DAILY #30 caps 08/24/24 oxybutynin chloride 5 mg tablet 5 mg PO BID PRN bladder spasms #60 08/24/24 tabs Allergies Allergy/AdvReac Type Severity Reaction Status Date / Time No Known Allergies Allergy Verified 08/20/24 09:17 [facility] Disclaimer: The information contained in this section may have been updated after the patient was seen, as this information can be updated by other users. Medical History Acute bronchitis Sinusitis Anxiety History of COVID-19 Cervical cancer Hypothyroidism Degenerative disc disease Acute viral syndrome Influenza Pharyngitis Closed head injury UTI (urinary tract infection) Inflammatory bowel diseases (IBD) Diverticulosis of colon Surgical History History of oral surgery History of esophagogastroduodenoscopy (EGD) History of colonoscopy H/O total hysterectomy Family History Grandfather No problems noted. 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 current occupational exposures/hazards: No caffeine: Yes Have you lived/traveled outside US in past 30 days?: No Contact w/someone who lives/traveled outside US past 30 days?: No Exposure to someone with infectious disease in past 14 days?: No Do you have a fever (greater than 100.4 F or 38 C)?: No Have you tested positive for COVID-19?: No Exposed to someone with COVID-19 in past 14 days?: No Do you have a sore throat?: No Do you have a cough?: No Do you have any weakness?: No Do you have any diarrhea?: No Are you experiencing any unusual bleeding?: No Do you have any muscle aches/pain?: No Do you have any abdominal pain?: No Are you experiencing loss of taste or smell?: No Other Medical History Have you received the Flu Vaccine for this season: No Have you received the Pneumonia Vaccine: No ROS Obtained: Yes All systems reviewed & no additional complaints except as documented Physical Exam General General appearance: alert, in no apparent distress and anxious Head Head exam: atraumatic and normocephalic Eye Eye exam: Present normal appearance, PERRL and EOMI ENT ENT exam: Present normal exam, normal oropharynx, mucous membranes moist and normal external ear exam Neck Neck exam: Present normal inspection, full ROM and trachea midline; Absent tenderness Chest Chest inspection: Present normal inspection and symmetric chest wall rise; Absent tenderness Respiratory Respiratory exam: Present normal lung sounds bilaterally; Absent respiratory distress, wheezes, stridor or accessory muscle use Cardiovascular Cardiovascular exam: Present regular rate and normal rhythm Abdominal Exam Abdominal exam: Present soft; Absent distention, tenderness or guarding Extremities Exam Extremities exam: Present normal inspection, full ROM and normal capillary refill; Absent tenderness or edema Back Exam Back exam: Present normal inspection and full ROM; Absent tenderness Neurological Exam Neurological exam: Present alert, oriented X3, CN II-XII intact and normal gait; Absent motor sensory deficit Psychiatric Psychiatric exam: Present anxious Skin Skin exam: Present warm and dry Medical Decision Making Medical Records Medical records reviewed: Yes I reviewed the patient's medical records. Screening: Per USPSTF and CDC recommendations, given the prevalence of disease in our region, it is our hospital?s policy to screen for HIV and viral Hepatitis for all patients aged 18 and over and those with ongoing risk factors. Konstantin Inquiry Pt receiving controlled substance: No Vital Signs: 08/24/24 10:54 08/24/24 11:01 08/24/24 12:16 Temperature 97.8 F Temperature Source Oral Pulse Rate 70 70 Pulse Rate [Left Radial] 85 Respiratory Rate 14 16 17 Blood Pressure 146/95 H 146/99 H Blood Pressure [Right Arm] 172/104 H Blood Pressure Mean 128 Blood Pressure Mean [Right Arm] 126 02 Sat by Pulse Oximetry 97 98 96 Oxygen Delivery Method Room Air Room Air 08/24/24 13:31 08/24/24 14:08 Temperature 98.2 F Temperature Source Pulse Rate 89 88 Pulse Rate [Left Radial] Respiratory Rate 20 20 Blood Pressure 138/119 H 146/99 H Blood Pressure [Right Arm] Blood Pressure Mean 122 Blood Pressure Mean [Right Arm] 02 Sat by Pulse Oximetry 98 Oxygen Delivery Method Room Air Lab Data Lab results reviewed: Yes I reviewed the patient's lab results. Lab Results 08/24/24 10:45: POC Glucose 112 H 08/24/24 11:37: WBC 10.7, RBC 5.36, Hgb 16.1, Hct 48.6 H, MCV 90.7, MCH 30.0, MCHC 33.1, RDW 12.5, Plt Count 292, MPV 9.6, Neut % (Auto) 62.4, Lymph % (Auto) 26.9, [place] % (Auto) 9.0, Eos % (Auto) 0.9, Baso % (Auto) 0.4, Neut # (Auto) 6.7, Lymph # (Auto) 2.9, [place] # (Auto) 1.0, Eos # (Auto) 0.1, Baso # (Auto) 0.0, Sodium 143, Potassium 4.2, Chloride 105, Carbon Dioxide 26, Anion Gap 16.2 H, BUN 16, Creatinine 0.70, Estimated Creat Clear 81, Estimated GFR 84, Est GFR ( Amer) 101, Glucose 95, Calcium 10.2, Phosphorus 3.4, Magnesium 2.0, Total Bilirubin 0.6, AST 41 H, ALT 49, Alkaline Phosphatase 89, Troponin I < 0.01, Total Protein 7.8, Albumin 4.9, Globulin 2.9, Albumin/Globulin Ratio 1.7, TSH 0.05 L, Thyroxine (T4) 19.4 H 08/24/24 11:46: Urine Color Yellow, Urine Appearance Clear, Urine pH 6.0, Ur Specific [place] 1.020, Urine Protein Negative, Urine Glucose (UA) Negative, Urine Ketones Negative, Urine Blood 1+ A, Urine Nitrate Negative, Urine Bilirubin Negative, Urine Urobilinogen 0.2, Ur Leukocyte Esterase Negative, Urine RBC Occasional, Urine WBC None, Ur Squamous Epith Cells Occasional, Urine Bacteria Trace 08/24/24 11:37 08/24/24 11:37 Orders (Tests/Meds): ED MEDICATIONS Discontinued Medications Generic Name Dose Route Start Last Admin Trade Name Freq PRN Reason Stop Dose Admin Lactated Ringer's 1,000 mls @ 999 mls/hr 08/24/24 11:40 08/24/24 11:45 Lactated Ringer's 1000 Ml Bag IV 08/24/24 12:40 999 mls/hr .Q1H1M ONE Administration ORDERS Category Date Time Status CBC w/Auto Diff [Complete Blood Count Auto Diff] Stat Lab 08/24/24 11:37 Completed CMP [Comprehensive Metabolic Panel] Stat Lab 08/24/24 11:37 Completed MAG [Magnesium] Stat Lab 08/24/24 11:37 Completed PHOS [Phosphorous] Stat Lab 08/24/24 11:37 Completed POC Glucose,Bedside Routine Lab 08/24/24 10:45 Completed T4 (Thyroxine) Stat Lab 08/24/24 11:37 Completed TSH [Thyroid Stimulating Hormone] Stat Lab 08/24/24 11:37 Completed Trop I [Troponin I] Stat Lab 08/24/24 11:37 Completed Troponin I Q3H Lab 08/24/24 17:30 Ordered UA [Urinalysis and Microscopic] Stat Lab 08/24/24 11:46 Completed ECG Data Tracing #1: I reviewed this ECG and interpreted as documented below: Normal sinus rhythm with ventricular rate of [address] changes concerning for ischemia. Normal intervals ECG initial impression date: 08/24/24 ECG initial impression time: 10:51 Medical Decision Narrative: In summary, this patient is a 64-year-old female presenting to the Emergency Department for evaluation of episodes of sweating, leg cramping, diarrhea, difficulty controlling bladder, and extreme emotional stressors. Differential diagnoses considered include but are not limited to anxiety, panic attacks, electrolyte derangements, dehydration, NANCI, urinary tract infection, hyperthyroidism, ACS, hypertension, among others. Ruling out the most morbid conditions drove assessment. It should be noted patient's history includes hypothyroidism which may or may not be at goal therapy. This complicates all aspects of care by increasing patient's risk for morbidity. I reviewed patient's past medical records and noted prior EGD with diagnosis of gastric ulcer and prior PCP evaluation for depression. On exam, the patient is anxious appearing, tearful. She is under a great deal of emotional stress. She denies any chest or abdominal pain currently. She has had diarrhea but has had chronic issues with this in the past. Abdominal exam is benign. Vitals are reassuring on cardiac telemetry, EKG obtained is reassuring. workup included CBC, CMP, TSH, T4, troponin, magnesium, phosphorus, urinalysis, diarrhea panel, EKG. She was given a bolus of IV fluids. On reassessment, the patient is resting comfortably in bed with normal vitals on cardiac telemetry. CBC is reassuring with no significant leukocytosis or anemia, chemistry demonstrates very mildly elevated anion gap, fluid resuscitation is ongoing. TSH is very low and T4 is high in the setting of exogenous levothyroxine. I called [facility] pharmacy who verified her dose is 112 mcg, so I decreased her to 100 mcg to see if this helps. She is not in any sort of crisis or thyroid storm at this time, so I feel that she is appropriate for discharge with close outpatient follow-up for further management of this. Patient does have a little bit of blood in her urine but is not concerning for infection. She states that she ran out of medications that she was prescribed for overactive bladder and is requesting refill, but I am not able to determine what this medication was from calling her pharmacy or reviewing medical records. I did prescribe her oxybutynin to see if this helps. I feel the patient is appropriate for discharge home with very close follow-up. She does have PCP follow-up 08/26/2024. Strict return precautions were given and she was discharged after all questions were answered. Critical Care Critical Care Time Critical Care Time: No
[2024-08-24 12:14] LABS: Appearance,Urine CLEAR (Clear); Bilirubin,Urine Negative (Negative); Blood, Urine 1+ (Negative); Color,Urine YELLOW (Yellow); Glucose,Urine (UA) Negative (Negative); Ketones,Urine Negative (Negative); Leukocyte Esterase,Urine Negative (Negative); Nitrate,Urine Negative (Negative); Protein,Urine Negative (Negative); Urobilinogen,Urine 0.2 EU/dl (0.2)
[2024-08-24 12:16] VITALS: BP 146/99; PULSE 70; RESP 17; O2SAT 96
[2024-08-24 12:31] LABS: Albumin Level 4.9 g/dl (3.5-5.0); Chloride 105 mmol/L (98-107); Potassium 4.2 mmoL/L (3.5-5.1); Sodium 143 mmol/L (136-145)
[2024-08-24 12:34] LABS: Alanine Aminotransferase 49 U/L (12-78); Albumin/Globulin Ratio 1.7 (1.1-1.8); Alkaline Phosphatase 89 U/L (38-126); Anion Gap 16.2 mEq/L (5-15); Aspartate Amino Transferase 41 U/L (14-36); Bilirubin,Total 0.6 mg/dl (0.2-1.3); Blood Urea Nitrogen 16 mg/dl (7-17); Carbon Dioxide 26 mmol/L (22.0-30.0); Creatinine Clearance Estimated 81 mL/min (50-200); Estimated Glomerular Filt Rate 84 ml/min (>60); GFR (African American) 101 ML/MIN (>60); Globulin 2.9 g/dL (1.3-3.2); Glucose 95 mg/dl (74-100); Phosphorous 3.4 mg/dl (2.5-4.5); Total Protein,Serum 7.8 g/dl (6.3-8.2)
[2024-08-24 12:35] LABS: Calcium 10.2 mg/dl (8.4-10.2)
[2024-08-24 12:37] LABS: Bacteria,Urine Trace /lpf; RBC,Urine Occasional #/hpf (0-3); Squamous Epithelial Cell,Urine Occasional #/hpf (0-5)
[2024-08-24 12:48] LABS: Troponin I < 0.01 ng/ml (0.00-0.034)
[2024-08-24 12:52] LABS: T4 (Thyroxine) 19.4 ug/dl (5.53-11.0)
[2024-08-24 13:05] LABS: Thyroid Stimulating Hormone 0.05 uIU/mL (0.465-4.68)
[2024-08-24 13:31] VITALS: BP 138/119; PULSE 89; RESP 20; O2SAT 98
[2024-08-24 14:08] VITALS: BP 146/99; PULSE 88; RESP 20; TEMP 36.8; O2SAT 98
== END 2024-08-24 14:12 | disposition home or self-care (01) ==
PROVIDERS: Emergency Provider Emergency Medicine; PCP Nurse Practitioner Family
DX: R31.9 Hematuria, unspecified (principal); R45.89 Other symptoms and signs involving emotional state; R35.0 Frequency of micturition; E05.80 Other thyrotoxicosis without thyrotoxic crisis or storm
CPT/HCPCS: 80053; 81001; 82962; 83735; 84100; 84436; 84443; 84484; 85025; 93005; 96360; 99284; J7120

== ENCOUNTER 2024-09-14 08:54 | Outpatient (CLI) | payer MEDICARE, SELFPAY ==
--- OUTSIDE RECORDS SUMMARY | 2024-09-14 08:56 | XMS_ITS | Data Portability ---
Author Organization [facility] JODY Edward BOAZ CLOSED Address [address] [place] [address] Care Team Providers Care Military Exchange Wireless Manager Name Role Phone CRAIG PRUITT Music Sound Light Technician Assessment No assessment recorded. Plan of Treatment Reminders Order Date Submit Date Provider Last Modified By Organization Details Last Modified Time Details Appointments None record ed. Lab None record ed. Referral None record ed. Procedures None record ed. Surgeries None record ed. Imaging None record ed. Medication Orders None record ed. Patient TargetsNo targets recorded. Patient InstructionsNo instructions recorded. Reason for Referral None Reported. Procedures Surgical History Date Name Laterality Status Provider Name and Address Organization Details Recorded Time 4 DAK - Cryo AK completed [facility] 11/10/2023 12:01:14 4 Destruction BN Lesions completed [facility] 11/10/2023 12:03:52 Imaging Results None recorded. Procedure Notes None recorded. Medical Equipment None Reported. Allergies No known drug allergies Medications Name Sig Start Date Stop Date Status Note LastModified by Organization Details LastModified Time levothyroxine active Not Available Not Available Not Available montelukast active Not Available Not A vailable Not Available trazodone active Not Available Not [place] ilable Not Available terbinafine (bulk) 11/09 completed Not Available Not Available Not Available Vitals None Recorded Social History Question Answer Notes LastModified by Organizat ion Details LastModified Time Tobacco Smoking Status Never Smoker Nubia deluna, [facility] 11/10/2023 11:55:10 Sunscreen Use? Yes [email or web address] Informatio n not available 11/10/2023 Tanning Bed Use No [email or web address] Informati on not available 11/10/2023 Are You Or Trying To Become ? No Information not available 11/10/2023 Are You On Control? No [email or web address] Information not available 11/10/2023 Are You ? No [email or web address] Information not available 11/10/2023 What Was The Date Of Your Most Recent Tobacco Screening? 11/10/2023 [email or web address] Information not available 11/10/2023 Sex: Unknown Functional Status Question Answer Note LastModified by Organizat ion Details LastModified Time What is your level of alcohol consumption? Occasional [email or web address] Information not available 11/10/2023 Mental Status None recorded. Family History Nothing Reported. Medical History No medical history recorded. Gynecological HistoryNo gynecological history recorded. Obstetrics History GPAL:G 0 P 0 0 0 0 Past Encounters Encounter ID Performer Location Encounter Start Date Encounter Closed Date Diagnosis/Indication Diagnosis SNOMED-CT Code Diagnosis ICD10 Code Diagnosis Note [id number] CHICHO CASTANEDA [address] [address] 11/10/2023 11:15:28 11/10/2023 12:06:52 Multiple benign melanocytic nevi 169489813 D22.5 L81.4 D18.01 L82.1 The benign nature of keratoses and lentigines was discussed with the patient.Ennis n protection with SPF 30 broad spectrum sunscreen and protective gear discussed. Look for physical elaine sunscreens with at least SPF 30 containing zinc oxide or titanium dioxide as active ingredient .Recommend monthly self examinatio ns and yearly full skin examinatio n with a dermatolog y provider.R ecommend yearly eye exam.Recom mend OTC Vitamin D supplement .Patient instructed to call if any suspicious lesions are noted. Actinic keratosis 007 L57.0 The nature of the diagnosis was explained. Pre-cancer ous.Will treat with LN2.F/u if treated lesions persist. Seborrheic keratosis 394 977157 L82.1 The nature of the diagnosis was discussed. Benign appearing lesions.Wi ll tx w/ LN2 - no charge. Health Concerns Section Related Observation LastModified by Organization Detai ls LastModified Time None Recorded Concern Status LastModified by Organization Details LastModified Time None Recorded Advance Directives Directive None Recorded Payers Insurance Date Sequence Insurance Name Policy Number Policy Mcmanus Covered Member ID Mcmanus Member ID Guarantor Name 11/10/2023 1 [employer] (MEDICARE REPLACEMENT/AD VANTAGE - PPO) Soledad Roque [id number] Soledad Roque 11/10/2023 1 [employer] (MEDICARE REPLACEMENT/AD VANTAGE - PPO) Soledad Roque [id number] Soledad Roque 11/10/2023 1 [employer] - GOLD PLUS (MEDICARE REPLACEMENT HMO) Soledad Roque [id number] Soledad Roque Notes Date Note Type Note Provider Name and Address Organization Details Recorded Time 11/10/2023 text/html fbseannualno hxI want her to really look at my face CHICHO CASTANEDA [address] [place], [address], [place] [facility] 11/10/2023 12:25:30 OBGyn Episode No OBEpisode recorded.
[2024-09-14 09:03] LABS: Microscopic, Urine URINE MICROSCOPIC (MICROSCOPIC)
[2024-09-14 09:55] LABS: Appearance,Urine CLEAR (Clear); Bilirubin,Urine Negative (Negative); Blood, Urine TRACE-I (Negative); Color,Urine YELLOW (Yellow); Glucose,Urine (UA) Negative (Negative); Ketones,Urine Negative (Negative); Leukocyte Esterase,Urine TRACE (Negative); Nitrate,Urine Negative (Negative); Protein,Urine Negative (Negative); Specific Gravity, Urine 1.025 (1.005-1.030)
[2024-09-14 10:07] LABS: Microalbumin/Creatinine Ratio 19.6
[2024-09-14 10:13] LABS: Creatinine,Urine Random 181 mg/dL (Not Estab.)
[2024-09-14 10:20] LABS: Free T4 (Free Thyroxine) 1.26 ng/dl (0.78-2.19)
[2024-09-14 10:32] LABS: Bacteria,Urine 1+ /lpf; Mucus,Urine Trace /lpf
[2024-09-14 10:35] LABS: Thyroid Stimulating Hormone 0.85 uIU/mL (0.465-4.68)
== END 2024-09-14 23:59 | disposition home or self-care (01) ==
LOC: LAB 08:55
PROVIDERS: PCP Internal Medicine; Visit Provider Internal Medicine
DX: Z13.1 Encounter for screening for diabetes mellitus (principal); Z13.29 Encounter for screening for other suspected endocrine disorder; R31.9 Hematuria, unspecified; I10 Essential (primary) hypertension
CPT/HCPCS: 36415; 81001; 82043; 82570; 83036; 84439; 84443

== ENCOUNTER 2024-09-17 11:08 | Outpatient (CLI) | payer MEDICARE, SELFPAY ==
--- NOTE | 2024-09-17 11:00 | MM_ITS ---
PROCEDURE INFORMATION: Exam: MG Bilateral Screening 3D Mammography Exam date and time: 09/17/2024 11:13 AM Age: 64 years old Clinical indication: Screening exam. TECHNIQUE: Imaging protocol: Bilateral Screening tomosynthesis and 2D mammography including computer-aided detection (CAD) when performed. COMPARISON: 1. MG Screening-Bilateral Mammography 10/18/2020 12:45 PM 2. MG Screening-Bilateral Mammography 09/21/2019 3:24 PM FINDINGS: MAMMOGRAPHY: Breast composition: There are scattered areas of fibroglandular density. Mass: No suspicious masses. Architectural distortion: None. Calcifications: No suspicious calcifications. Asymmetric density: None. Skin thickening: None. Axillary adenopathy: None. IMPRESSION: No mammographic evidence of malignancy. Annual screening is recommended unless otherwise clinically indicated. ASSESSMENT: BI-RADS Category 1: Negative.
--- OUTSIDE RECORDS SUMMARY | 2024-09-17 11:11 | XMS_ITS | Data Portability ---
Author Organization [facility] JODY Edward GUATAY CLOSED Address [address] [facility] [facility] [place] [address] Care Team Providers Care Grain Commodity Manager Name Role Phone CRAIG PRUITT Inner Layer Scrubber Tender Assessment No assessment recorded. Plan of Treatment [...] Time 4 DAK - Cryo AK completed [facility] [place]/10/2023 12:01:14 4 Destruction BN Lesions [place] [facility] 11/10/2023 12:03:52 Imaging Results None recorded. Procedure [...] Tobacco Smoking Status Never Smoker Nubia deluna, [facility] 11/10/2023 11:55:10 Sunscreen Use? Yes [email or web address] Informatio n not available 11/10/2023 Tanning Bed Use No [email or web address] Informati on not available 11/10/2023 Are You Or Trying To Become ? No [email or web address] Information not available 11/10/2023 Are You On Control? No [email or web address] Information not available 11/10/2023 Are You ? No [email or web address] Information not available 11/10/2023 What Was The Date Of Your Most Recent Tobacco Screening? 11/10/2023 [email or web address] Information not available 11/10/2023 Sex: Unknown Functional Status Question Answer Note LastModified by Organizat ion Details LastModified Time What is your level of alcohol consumption? Occasional [email or web address] Information not available 11/10/2023 Mental Status None recorded. Family History Nothing Reported. Medical History No medical history recorded. Gynecological HistoryNo gynecological history recorded. Obstetrics History GPAL:G 0 P 0 0 0 0 Past Encounters Encounter ID Performer Location Encounter Start Date Encounter Closed Date Diagnosis/Indication Diagnosis SNOMED-CT Code Diagnosis ICD10 Code Diagnosis Note [id number] CHICHO CASTANEDA [address] [address] 11/10/2023 11:15:28 11/10/2023 12:06:52 Multiple benign melanocytic nevi 530655950 D22.5 L81.4 D18.01 L82.1 The benign nature [...] if treated lesions persist. Seborrheic keratosis 394 348494 L82.1 The nature of the diagnosis was [...] ID Guarantor Name 11/10/2023 1 [employer] (MEDICARE REPLACEMENT/A DVANTAGE - PPO) Soledad Maribel Roque [id number] Soledad Maribel Roque 11/10/2023 1 [employer] (MEDICARE REPLACEMENT/A DVANTAGE - PPO) Soledad Roque [id number] Soledad Roque 11/10/2023 1 [employer] - GOLD PLUS (MEDICARE REPLACEMENT/A DVANTAGE - HMO) Soledad Roque [id number] Soledad Roque Notes Date Note Type Note Provider Name and Address Organization Details Recorded Time 11/10/2023 text/html fbseannualno hxI want her to really look at my face CHICHO CASTANEDA [address] [place], [address], [facility] 11/10/2023 12:25:30 OBGyn Episode No OBEpisode recorded.
--- OUTSIDE RECORDS SUMMARY | 2024-09-17 11:11 | XMS_ITS | Data Portability ---
Author Organization [facility] & TREVON Rocha ADMIN Address [address] [place] [address] Assessment No assessment recorded. Plan of Treatment Reminders Order Date Submit Date Provider Last Modified By Organization Details Last Modified Time Details Appointments None recorded. Lab None recorded. Referral None recorded. Procedures bladder scan (PROC) [email or web address], [address], 15:25:08 Surgeries None recorded. Imaging None recorded. Medication Orders methenamine hippurate 1 gram tablet [address] [id number], [address] [place], [place], [id number], 3 15:25:14 ascorbic acid (vitamin C) 500 mg tablet [address] [id number], [address] [place], [place], [phone], 3 15:25:13 Patient TargetsNo targets recorded. Patient InstructionsNo instructions recorded. Reason for Referral None Reported. Results Created Date Observation Date Name Description Value Unit Range Abnormal Flag Note LastModifiedBy Organization Detail LastModifiedTime 01/23/2001/22/2023 bladd er scan (PROC ) Calculated Residual Urine: 91 ml Not Available [address], [address], 01/22/2023 15:21:16 Result Notes None recorded. Procedures Surgical History Date Name Laterality Status Provider Name and Address Organization Details Recorded Time Total Hysterectomy completed [facility] [place] 01/20/2023 16:16:23 panniculotomy completed [facility] [place] 01/20/2023 16:16:30 colonoscopy completed [facility] [place] 01/20/2023 16:16:47 dental surgical procedure completed [facility] [place] 01/20/2023 16:17:01 Imaging Results None recorded. Procedure [...] Updated DateTime 01/22/2023 167.64 cm 30.3 kg/m2 57605.37 g 98 [degF] [facility] [place] 01/22/2023 14:50:29 Social History None recorded. Functional [...] SNOMED-CT Code Diagnosis ICD10 Code Diagnosis Note [id number] Eddie Borrego Jr, MD [facility] [address] [address] 01/22/2023 14:15:23 01/22/2023 16:20:31 Recurrent urinary tract infection 355784141 N39.0 patient referred for recurrent urinary tract [...] organisms to grow. Female str ess incontinence 45599838 N39.3 patient with mild stress urinary incontinen [...] Member ID Mcmanus Member ID Guarantor Name 11/15/2023 1 [place] [id number] 2 Soledad Roque [id number] Soledad Roque Notes Date Note Type [...] is not available. Eddie Borrego Jr, MD [address] [place] [address], [address], [place], [address], [facility] [place] & [place] 01/22/2023 15:26:28 OBGyn Episode No OBEpisode recorded.
== END 2024-09-17 23:59 | disposition home or self-care (01) ==
LOC: RAD 11:09
PROVIDERS: PCP Nurse Practitioner Family; Visit Provider Nurse Practitioner Family
DX: Z12.31 Encounter for screening mammogram for malignant neoplasm of breast (principal); R92.323 Mammographic fibroglandular density, bilateral breasts
CPT/HCPCS: 77063; 77067

== ENCOUNTER 2025-03-21 10:55 | Outpatient (CLI) | payer MEDICARE, SELFPAY ==
--- NOTE | 2025-03-21 10:59 | XR_ITS ---
FINAL REPORT CLINICAL HISTORY: right sided neck pain FINDINGS: CERVICAL SPINE Five views were obtained. There is no acute fracture. There is mild degenerative disc disease. There is no malalignment. IMPRESSION: Mild degenerative disc disease. Reviewed, Interpreted and Dictated by Brigid Foster MD Transcribed by Freda Campuzano Authenticated and [facility]
--- NOTE | 2025-03-21 10:59 | XR_ITS ---
FINAL REPORT CLINICAL HISTORY: right sided neck pain right shoulder pain FINDINGS: Three views of the right shoulder were obtained. There is no fracture or dislocation. There is mild AC joint degenerative disease. Soft tissues are unremarkable. There is right basilar opacity, may represent atelectasis versus pneumonia. IMPRESSION: Degenerative joint disease. Right basilar atelectasis versus pneumonia. Reviewed, Interpreted and Dictated by Brigid Foster MD Transcribed by Freda Campuzano Authenticated and [facility]
--- OUTSIDE RECORDS SUMMARY | 2025-03-21 11:22 | XMS_ITS | Data Portability ---
Author Organization [facility] JODY Edward NEWKIRK CLOSED Address [address] [facility] [facility] [address] [address] [place] [address] Care Team Providers Care Rugby League Footballer Name Role Phone CRAIG PRUITT Bar Waiter/Waitress Assessment No assessment recorded. Plan of Treatment Reminders Order Date Submit Date Provider Last Modified By Organization Details Last Modified Time Details Appointments [facility]ERM ESTABLISH ED 2025 10:00A M LAURA PRUITT PA-C Not available Not available Not available Lab None recorded. Referral None recorded. Procedures None recorded. Surgeries None recorded. Imaging None recorded. Medication Orders None recorded. Patient TargetsNo targets recorded. Patient InstructionsNo instructions recorded. Reason for Referral None Reported. Procedures Surgical History Date Name Laterality Status Provider Name and Address Organization Details Recorded Time 5 DAK - Cryo AK [facility] 01/06/[facility] 15:51:32 4 DAK - Cryo AK completed [facility] 11/10/2023 12:01:14 4 Destruction BN Lesions completed [facility] 11/10/2023 12:03:52 Imaging Results None recorded. Procedure [...] Time Tobacco Smoking Status Never Smoker Nubia Washington [facility] 11/10/2023 11:55:10 Sunscreen Use? Yes [email or web address] Informatio n not available 11/10/2023 Tanning Bed Use No Informati on not available 11/10/2023 Are You Or Trying To Become ? No [email or web address] Information not available 11/10/2023 Are You On Control? No [email or web address] Information not available 11/10/2023 Are You ? No [email or web address] Information not available 11/10/2023 What Was The Date Of Your Most Recent Tobacco Screening? 01/06/2025 [email or web address] Information not available 01/06/2025 Sex: Unknown Functional Status Question Answer Note LastModified by Organizat ion Details LastModified Time What is your level of alcohol consumption? Occasional [email or web address] Information not available 11/10/2023 Mental Status None recorded. Family History Nothing Reported. Medical History No medical history recorded. Gynecological HistoryNo gynecological history recorded. Obstetrics History GPAL:G 0 P 0 0 0 0 Past Encounters Encounter ID Performer Location Encounter Start Date Encounter Closed Date Diagnosis/Indication Diagnosis SNOMED-CT Code Diagnosis ICD10 Code Diagnosis IMO Codes Diagnosis Note [id number] CHICHO CASTANEDA [address] [address] 11/10/2023 11:15:28 11/10/2023 12:06:52 Multiple benign melanocytic nevi 979046635 D22.5 L81.4 D18.01 L82.1 The benign nature [...] any suspicious lesions are noted. Actinic keratosis 795812 007 L57.0 The nature of the diagnosis was explained. Pre-cancer ous.Will treat with LN2.F/u if treated lesions persist. Seborrheic keratosis 394 782992 L82.1 The nature of the diagnosis was discussed. Benign appearing lesions.Wi ll tx w/ LN2 - no charge. [id number] CHICHO CASTANEDA [address] [address] 01/06/2025 14:53:20 01/06/2025 15:55:44 Multiple benign melanocytic nevi 330143229 D22.5 L81.4 D18.01 L82.1 The benign nature of keratoses and lentigines was discussed with the patient. Sun protection with SPF 30 broad spectrum sunscreen and protective gear discussed. Look for physical elaine sunscreens with at least SPF 30 containing zinc oxide or titanium dioxide as active ingredient . Recommend monthly self examinatio ns and yearly full skin examinatio n with a dermatolog y provider. Recommend yearly eye exam. Recommend OTC Vitamin D supplement . Patient instructed to call if any suspicious lesions are noted. Dysesthesia of scalp 735 428918 R20.8 [id number] The nature of the diagnosis was discussed. disscussed possible tx options. Actinic keratosis 007 L57.0 50005 The nature of the diagnosis was explained. Pre-cancer ous. Will treat with LN2. F/u if treated lesions persist. Seborrheic keratosis 394 725072 L82.1 41477 The nature of the diagnosis was discussed. Benign appearing lesions. Since bothersome , will tx w/ LN2 (No charge). Lesions tx'ed today may persist. Health Concerns Section Related Observation LastModified by Organization Detai ls LastModified Time None Recorded Concern Status LastModified by Organization Details LastModified Time None Recorded Advance Directives Directive None Recorded Payers Insurance Date Sequence Insurance Name Policy Number Policy Mcmanus Covered Member ID Mcmanus Member ID Guarantor Name 01/06/2025 1 [employer] (MEDICARE REPLACEMENT/A DVANTAGE - PPO) Soledad Roque [id number] Soledad Roque 01/13/2025 1 [employer] (MEDICARE REPLACEMENT/A DVANTAGE - PPO) Soledad Roque [id number] Soledad Roque 01/06/2025 1 [employer] - GOLD PLUS (MEDICARE REPLACEMENT/A DVANTAGE - HMO) Soledad Roque [id number] Soledad Roque Notes Date Note Type Note Provider Name and Address Organization Details Recorded Time 11/10/2023 text/html [facility] hxI want her to really look at my face CHICHO CASTANEDA [address] [place], [address], [facility] 11/10/2023 12:25:30 01/06/2025 text/html [facility] [address] [place], [address], [facility] 01/09/2025 16:47:15 OBGyn Episode No OBEpisode recorded.
--- OUTSIDE RECORDS SUMMARY | 2025-03-21 11:22 | XMS_ITS | Continuity of Care Document ---
Author Organization [facility] AMBER Edward PINEY FLATS Address [address] [place] [address] Care Team Providers Care Principal Technical Writer Name Role Phone CRAIG PRUITT Cattle Driver Assessment No assessment recorded. Plan of Treatment [...] Time 5 DAK - Cryo AK [facility] 15:51:32 4 DAK - Cryo AK [place] [facility] [place]/10/2023 12:01:14 4 Destruction BN Lesions [place] [facility] [place]/10/2023 12:03:52 Imaging Results None recorded. Procedure [...] Tobacco Smoking Status Never Smoker Nubia [place] [facility] 11/10/2023 11:55:10 Sunscreen Use? Yes [email or web address] Informatio n not available 11/10/2023 Tanning Bed Use No [email or web address] Informati on not available 11/10/2023 Are You Or Trying To Become ? No [email or web address] Information not available 11/10/2023 Are You On Control? No [email or web address] Information not available 11/10/2023 Are You ? No [email or web address] Information not available 11/10/2023 What Was The Date Of Your Most Recent Tobacco Screening? 01/06/2025 [email or web address] Information not available 01/06/2025 Sex: Unknown Functional Status Question Answer Note LastModified by Organizat ion Details LastModified Time What is your level of alcohol consumption? Occasional [email or web address] Information not available 11/10/2023 Mental Status None recorded. Family History Nothing Reported. Medical History No medical history recorded. Gynecological HistoryNo gynecological history recorded. Obstetrics History GPAL:G 0 P 0 0 0 0 Past Encounters Encounter ID Performer Location Encounter Start Date Encounter Closed Date Diagnosis/Indication Diagnosis SNOMED-CT Code Diagnosis ICD10 Code Diagnosis IMO Codes Diagnosis Note [id number] CHICHO CASTANEDA [address] [address] 01/06/2025 14:53:20 01/06/2025 15:55:44 Multiple benign melanocytic nevi 486154102 D22.5 L81.4 D18.01 L82.1 The benign nature [...] lesions are noted. Dysesthesia of scalp 735 787844 R20.8 [id number] The nature of the diagnosis was discussed. disscussed possible tx options. Actinic keratosis L57.0 [address]4350 The nature of the diagnosis was explained. Pre-cancer ous. Will treat with LN2. F/u if treated lesions persist. Seborrheic keratosis 394 313886 L82.1 98757 The nature of the diagnosis was discussed. Benign appearing lesions. Since bothersome , will tx w/ LN2 (No charge). Lesions tx'ed today may persist. Health Concerns Section Related Observation LastModified by Organization Detai ls LastModified Time None Recorded Concern Status LastModified by Organization Details LastModified Time None Recorded Payers Encounter Date Sequence Insurance Name Policy Number Policy Mcmanus Covered Member ID Mcmanus Member ID Guarantor Name 01/06/2025 1 [employer] (MEDICARE REPLACEMENT/A DVANTAGE - PPO) Soledad Roque [id number] Soledad Roque Notes Date Note Type Note Provider Name and Address Organization Details Recorded Time 01/06/2025 text/html ROS as noted in the HPI fbseannualno hxno concerns CHICHO CASTANEDA [address] [place], [address], [facility] 01/09/2025 16:47:15 OBGyn Episode No OBEpisode recorded.
--- OUTSIDE RECORDS SUMMARY | 2025-03-21 11:22 | XMS_ITS | Clinical Summary ---
Author Organization [facility] Address [address] [place] [address] Care Team Providers Care Machine Operator Helper Name Role Phone Simone Galvan MD Primary Care Provider [phone] Allergies No known active allergies Medications aspirin 81 MG chewable tablet Chew 81 mg Daily. Active cholecalciferol (VITAMIN D3) 1000 units tablet Take 1,000 Units by mouth Daily. Active naproxen sodium (ALEVE) 220 MG tablet Take 220 mg by mouth 2 (Two) Times a Day As Needed. Active levothyroxine (SYNTHROID, LEVOTHROID) 125 MCG tablet 0 03/12/2018 Active traZODone (DESYREL) 50 MG tablet 0 04/23/2018 Active venlafaxine XR (EFFEXOR-XR) 37.5 MG 24 hr capsule 0 03/27/2018 Active Immunizations Immunization Administration Dates Next Due PPD Test 01/04/2016 Family History Medical History Relation Name Comments Diabetes Brother Diabetes Mother Obesity Mother Relation Name Status Comments Brother Mother Social History Tobacco Use Types Packs/Day Years Used Date Smoking Tobacco: Never Smokeless Tobacco: Never Alcohol Use Standard Drinks/Week Comments No 0 (1 standard drink = 0.6 oz pur e alcohol) Abuse Screen Answer Date Recorded Unsafe at Home or Work/School Not on file Feels Threatened by Someone? Not on file 01/2023 Does Anyone Keep You from Co ntacting Others or Doint Things Outside the Home? Not on file 02/04/2023 Physical Sign of Abuse Present Not on file 1 Housing Stability Answer Date Recorded Current Living Arrangements Not on file 01/26 Potentially Unsafe Housing Conditions Not on mallory e 02/04/2023 Family and Community Support Answer Jamarcus e Recorded Help with Day-to-Day Activities Not on file 02/04/2023 Lonely or Isolated Not on file 02/04/2023 Employment Answer Date Recorded Do you want help finding or keeping work or a maxine b? Not on file 02/04/2023 Disabilities Answer Date Recorded Concentrating, Remembering, or Making Decisions Difficulty Not on file 02/04/2023 Doing Errands Independently Difficulty Not on fi le 02/04/2023 Education Answer Date Recorded Help with school or training? Not on file Preferred Language Not on file 02/04/2023 Comments No Sex and Gender Information Value Date Recorded Sex Assigned at Not on file Legal Sex Female 1:54 PM EDT Gender Identity Not on file Sexual Orientation Not on file Last Filed Vital Signs Vital Sign Reading Time Taken Comments Blood Pressure 138/88 05/15/2018 11:52 AM EST Pulse 117 05/15/2018 11:52 AM EST Temperature 37.3 C (99.2 F) 05/15/2018 11:52 AM EST Respiratory Rate 12 05/15/2018 11:52 AM EST Oxygen Saturation 99% 05/15/2018 11:52 AM EST Inhaled Oxygen Concentration - - Weight 96.6 kg (213 lb) 05/15/2018 11:52 AM EST Height 167.6 cm (5' 6 ) 05/15/2018 11:52 AM EST Body Mass Index 34.38 05/15/2018 11:52 AM EST Plan of Treatment Health Maintenance Due Date Last Done Comments DXA SCAN 1958 TDAP/TD VACCINES (1 - Tdap) 1977 MAMMOGRAM 1998 COLOGUARD 07/20/2003 COLON CANCER SCREENING 5 YEAR SIGMOIDOSCOPY 07/20/2003 CT COLONOGRAPHY 07/20/2003 FECAL OCCULT BLOOD TEST 07/20/2003 FIT Testing (1 year) 07/20/2003 Pneumococcal Vaccine 50+ (1 of 1 - PCV) 2008 ZOSTER VACCINE (1 of 2) 2008 COLONOSCOPY 12/30/2011 12/29/2001 COLORECTAL CANCER SCREENING 12/30/2011 ANNUAL PHYSICAL 09/12/2017 HEPATITIS C SCREENING 09/12/2017 INFLUENZA VACCINE 11/26/2024 COVID-19 Vaccine ( season) 2024 Procedures Procedure Name Priority Date/Time Associated Diagnosis Comments SCANNED - COLONOSCOPY 12/29/2001 from Last 3 Months or Most Recently Relevant to Health Maintenance Results * SCANNED - COLONOSCOPY (12/29/2001) us Juan Jensen MD CHART REVIEW TABS Final Re sult from Last 3 Months or Most Recently Relevant to Health Maintenance Insurance [employer] Care Teams Machine Operator Helper Relationship Specialty Start Date End Date Simone Galvan MD [address] [place] [address] PCP - General Family Medicine 01/04/16
== END 2025-03-21 23:59 | disposition home or self-care (01) ==
LOC: RAD 10:55
PROVIDERS: PCP Nurse Practitioner Family; Visit Provider Nurse Practitioner Family
DX: M19.011 Primary osteoarthritis, right shoulder (principal); M50.30 Other cervical disc degeneration, unspecified cervical region; R91.8 Other nonspecific abnormal finding of lung field
CPT/HCPCS: 72050; 73030